=== PATIENT | male | born 1970 | race Caucasian/White ===

== ENCOUNTER 2021-10-01 09:15 | Outpatient (RCR) | payer MEDICAID, SELFPAY ==
[2021-09-24 08:45] VITALS: BP 130/58; PULSE 116; RESP 16; TEMP 35.8; BMI 37.8
--- NOTE | 2021-09-24 10:06 | PCM.WC.HP ---
History of Present Illness Date of Service: 09/24/21 Chief Complaint: Sacral ulcer History of Wound: Is a pleasant 51-year-old female who presents to the wound healing center today (09/24/2021) for an initial consult of his sacral pressure ulcer. He has a past medical history significant for type 2 diabetes mellitus, hypertension, DOMINGO, congestive heart failure, obesity, gout, osteoarthritis, neuropathy, metabolic encephalopathy, former tobacco use, and COVID-19 pneumonia. He has no known allergies. He developed his sacral ulcer while hospitalized at [facility] for COVID-19 pneumonia in June 2021. On 08/24/2021, he underwent excision and surgical debridement of his infected, unstageable sacral ulcer. A wound VAC was initiated at that time. Following his discharge from the hospital, he has been residing at [facility] in [place], [place]. He has continued to receive wound care using a wound VAC at 125 mmHg negative pressure. His wound VAC has been changed 3 times weekly. He has been tolerating this well, and the wound has been responding well to this treatment. He has only been receiving bed baths since his hospital discharge. Nursing has been cleaning his wound with sterile water. He sleeps on a bed with an air mattress for offloading. When seated in a chair, he uses pillows for offloading. He is ambulatory with a walker. He reports that he was on antibiotics at some point for treatment of his wound infection, but does not recall the name of the antibiotics he was taking. He has not had any recent wound cultures. He denies any recent fever chills or poor appetite. He does note that he has had malodorous drainage from his sacral wound recently. [facility] Medical History (Updated 09/24/21 @ 10:26 by Mayda Lemos WIRE BENDER, WIRE BENDER-C) Obesity Stage III pressure ulcer of sacral region Type 2 diabetes mellitus with other skin ulcer Home Medications acetaminophen [Tylenol] 650 mg PO Q8H PRN 09/24/21 [History Last Taken Unknown] allopurinol 100 mg PO DAILY 09/24/21 [History Last Taken Unknown] amlodipine 5 mg PO DAILY 09/24/21 [History Last Taken Unknown] ammonium lactate 1 applic TOPICAL TID 09/24/21 [History Last Taken Unknown] calcium carbonate-vitamin D3 1 cap PO DAILY 09/24/21 [History Last Taken Unknown] carbamazepine [Tegretol XR] 100 mg PO BID 09/24/21 [History Last Taken Unknown] carbamazepine [Tegretol XR] 200 mg PO BID 09/24/21 [History Last Taken Unknown] carvedilol 25 mg PO BID 09/24/21 [History Last Taken Unknown] diphenhydramine HCl [Benadryl Allergy] 25 mg PO TID PRN 09/24/21 [History Last Taken Unknown] docusate sodium 100 mg PO BID 09/24/21 [History Last Taken Unknown] glucagon [Glucagon Emergency Kit] mg 09/24/21 [History Last Taken Unknown] hydralazine 50 mg PO TID 09/24/21 [History Last Taken Unknown] insulin glargine 60 unit SUBCUT QHS 09/24/21 [History Last Taken Unknown] insulin lispro 19 unit SUBCUT TID 09/24/21 [History Last Taken Unknown] insulin lispro [Humalog U-100 Insulin] See Protocol SUBCUT TID 09/24/21 [History Last Taken Unknown] lisinopril 40 mg PO DAILY 09/24/21 [History Last Taken Unknown] lovastatin 40 mg PO QHS 09/24/21 [History Last Taken Unknown] magnesium hydroxide [Milk of Magnesia] 30 ml PO Q4H PRN 09/24/21 [History Last Taken Unknown] melatonin 3 mg PO QHS 09/24/21 [History Last Taken Unknown] metoclopramide HCl [Reglan] 5 mg PO TID 09/24/21 [History Last Taken Unknown] ondansetron HCl [Zofran] 4 mg PO Q6H PRN 09/24/21 [History Last Taken Unknown] oxycodone [OxyContin] 20 mg PO Q12H 09/24/21 [History Last Taken Unknown] oxycodone-acetaminophen 1 tab PO Q8H PRN 09/24/21 [History Last Taken Unknown] pantoprazole [Protonix] 40 mg PO BID 09/24/21 [History Last Taken Unknown] polyethylene glycol 3350 [Miralax] 17 g PO BID PRN 09/24/21 [History Last Taken Unknown] pregabalin 300 mg PO BID 09/24/21 [History Last Taken Unknown] sumatriptan-naproxen [Treximet] 1 tab PO Q24H PRN 09/24/21 [History Last Taken Unknown] tizanidine 2 mg PO Q8H PRN 09/24/21 [History Last Taken Unknown] Allergy/AdvReac Type Severity Reaction Status Date / Time No Known Allergies Allergy Verified 09/24/21 09:26 Social History Smoking Status: Former smoker ROS Constitutional Constitutional: Denies chills, fever(s) or night sweats Eyes Eyes: Denies change in vision or double vision ENT HEENT: Denies lip swelling or tongue swelling Cardiovascular Cardiovascular: Denies chest pain, leg edema or palpitations Respiratory/Chest Respiratory/Chest: Denies cough, shortness of breath at rest, shortness of breath with exertion or wheezing Gastrointestinal Gastrointestinal: Denies diarrhea, nausea or vomiting Genitourinary Genitourinary: Denies dysuria or hematuria Musculoskeletal Musculoskeletal: Reports difficulty walking Integumentary Integumentary: Reports skin pain and wounds; Denies rash Neurologic Neurologic: Reports abnormal gait and abnormal speech Endocrine Endocrinology: Denies cold intolerance, heat intolerance, polydipsia or polyuria Hematologic/Lymphatic Hematologic/Lymphatic: Denies easy bleeding or easy bruising Vital Signs Vital Signs Vital Signs: 09/24/21 08:45 Temperature 96.4 F L Temperature Source Temporal Pulse Rate 116 H Respiratory Rate 16 Blood Pressure 130/58 H Blood Pressure Mean 82 Blood Pressure Source Monitor Blood Pressure Position Sitting Blood Pressure Location Right Arm Oxygen Delivery Method Room Air Weight Weight: 295 lb Body Mass Index (BMI) 37.8 Physical Exam Const alert, no apparent distress and healthy appearing General Appearance: cooperative, comfortable and well kempt Orientation / Consciousness: awake Nutritional Appearance: obese HEENT Head and Scalp: normocephalic and atraumatic Neck supple and no JVD Resp normal respiratory effort, normal air movement and no use of accessory muscles Auscultation: clear to auscultation bilaterally; Negative for crackles, rales, rhonchi or wheezes Cardio regular rate and regular rhythm GI normal to inspection, nondistended, normoactive bowel sounds, soft to palpation and non-tender Extremity normal capillary refill, no joint enlargement, no clubbing, cyanosis or edema, no calf tenderness and no pedal edema Skin Wounds: wounds noted Wound Narrative: Stage 3 sacral ulcer with subcutaneous tissue and muscle exposed. No tunneling, undermining, or probing to bone noted. Small amount of slough and devitalized tissue present. No periulcer warmth, erythema, or edema. No purulent/malodorous drainage. Psych mental status grossly normal, cooperative and affect normal Debridement Note Debridement Note Wound debrided: Stage III sacral ulcer Laterality: Not Applicable Type of Debridement: Excisional debridement Anesthesia Used: 4% Lidocaine Solution Depth: Down to and including healthy tissue, in the subcutaneous layer and to muscle Percentage of wound debrided: 100 Instrument Used: 7mm curette Tissue Removed: Slough and devitalized tissue Severity: Fat Layer Exposed Amount of bleeding with debridement: Mild Bleeding Controlled with: Pressure Patient tolerated procedure: Patient tolerated procedure well Post-Debridement Measurements and Additional Note: Post-Debridement Measurements/Treatment - Nurse 1 - General Ulcer Assessment Start: 09/24/21 08:35 Freq: Status: Active Protocol: CHRISSY Activity Type Activity Date Activity User E-Sign Co-Sign Detail Recorded Client Recorded Date Recorded By Document 09/24/21 08:45 [facility] [id number] 09/24/21 08:51 [facility] 09/24/21 08:45 - Today's Visit Information Type of service Initial Visit Arrival Mode Wheelchair Transfer Assistance Other Transfer Assist (Other) stand by Accompanied by auto design detailer from [facility] Patient Identification Verified (Name & Yes ) Patient Requires Transmission-Based No Precautions Finger Stick Blood Sugar(mg/dl) (if 139 indicated): Blood Sugar Stated by Patient Height and Weight Height 6 ft 2 in Weight 295 lb Weight in Pounds 295.0 lbs Weight Measurement Method Stated by Patient Body Mass Index (BMI) 37.8 BMI Classification Obese BSA - Martinez 2.56 Vital Signs Temperature (97.8 F-99.1 F) 96.4 F L Temperature Source Temporal Pulse Rate (60-100) 116 H Pulse Location Monitor Respiratory Rate (12-18) 16 Respiratory rate source Observation Oxygen Delivery Method Room Air Blood Pressure (90/60-120/80) 130/58 H Blood Pressure Mean 82 Source Monitor Position Sitting Blood Pressure Location Right Arm History Since Last Visit- (Skip if this is Patient's initial visit) Left Footwear Regular Shoe Right Footwear Regular Shoe Pain Scale: 0-10 Numeric Is Patient Pain Free? Yes Communication Assessment Preferred language Stateless Medical Typist Required No Able to Read Yes Able to Write Yes Communication Tools None Right Hearing Abillity Normal Left Hearing Abillity Normal Visual Assistive Devices Glasses Teaching Assessment Preferences Verbal,Written, Audio/Visual, Demonstration Barriers to Learning None Readiness To Learn Excellent Willingness to Engage in Self Management High Activies Readiness to Engage in Self Management High Activities Anxiety Level Calm Cooperation Cooperative Perception Coherent Interest in Health Problem Asks Questions Education Importance Acknowledges Need Does Patient Smoke tobacco or other No substances Smoking Status Former smoker Is Patient Diabetic Yes Functional Assessment Recent Decline in Ability to Perform Ambulation, Lower Body Dressing, Transferring Culture/Synagogue/Lead Advisor Cultural/Synagogue Needs that may affect No Treatment Plan Teaching: Wound Center *Welcome to the Wound Center -Person Taught Patient -Teaching Method Discussion -Response to teaching Verbalize understanding Welcome to the Wound Care Center Stateless LILLIAN - Nurse 1 - General Ulcer Measurement Start: 09/24/21 08:35 Freq: Status: Active Protocol: Activity Type Activity Date Activity User E-Sign Co-Sign Detail Recorded Client Recorded Date Recorded By Document 09/24/21 08:45 [facility] [id number] 09/24/21 08:51 [facility] 09/24/21 08:45 Wound Center Nurse 1 #1- SACRAL -Combined with other wound No -Current Size (cm) - Length 7 -Current Size (cm) - Width 5 -Current Size (cm) - Depth 3.5 -Total Square Cm 35 -Date of Last Picture (Recall this 09/24/21 field) -Photo Taken Yes -Epithelialization None Present -Tunneling No -Undermining/Tunneling No -Circular Undermining No -Exudate Amt Large -Exudate Type Serosanguineous -Wound Margin Distinct, Outline Attached -Granulation Amt Medium (34-66%) -Granulation Quality Red -Slough/Fibrin Yes -Necrosis Amt Medium (34-66%) -Necrotic Tissue Type Adherent Slough -Texture (Pao-wound Skin Appearance) Assessed, Scarring -Moisture (Pao-wound Skin Appearance) Assessed -Color (Pao-wound Skin Appearance) Assessed, Erythema -Temperature (Pao-wound Skin No Abnormality Appearance) (Pt Warm) -Tenderness on Palpation (Pao-wound Yes Skin Appearance) -Ulcer Cleansing Soap and Water -Foul Odor after Cleansing No -Anesthetic Used 4% Lidocaine Solution LILLIAN - Nurse 3 - General Ulcer D/C NN Start: 09/24/21 08:35 Freq: Status: Active Protocol: Activity Type Activity Date Activity User E-Sign Co-Sign Detail Recorded Client Recorded Date Recorded By Document 09/24/21 09:56 [facility] [id number] 09/24/21 09:57 A[facility] 09/24/21 09:56 Wound Care Nurse 3 -Ulcer Cleansing Rinsed/ Irrigated with Saline -Foul Odor after Cleansing No -Negative Pressure Wound Therapy N/A -Other Dressing wet to dry -Primary Dressing Covered/Secured with Dry Gauze, Secured with Tape WC - Visit Discharge Discharge Condition Stable Ambulatory Status Wheelchair Transportation transport Medication Reconcilliation completed & No provided to patient/care provider Clinical Summary of Care Provided Yes Charges/Coding Visit Charges Office Visits / Consults: 75232 OV L4 New Procedures Integumentary [id number]: [id number] Evangelina musc/fascia 20 sq cm/< Add On Codes: [id number] Evangelina musc/fascia add-on (x2) Assessment/Plan Assessment/Plan (1) Stage III pressure ulcer of sacral region: CODE(S): L89.153 - Pressure ulcer of sacral region, stage 3 (2) Type 2 diabetes mellitus with other skin ulcer: CODE(S): E11.622 - Type 2 diabetes mellitus with other skin ulcer; L98.499 - Non-pressure chronic ulcer of skin of other sites with unspecified severity QUALIFIERS: Diabetes mellitus assisted insulin use: unspecified assisted insulin use status Qualified Code(s): E11.622 - Type 2 diabetes mellitus with other skin ulcer; L98.499 - Non-pressure chronic ulcer of skin of other sites with unspecified severity (3) Obesity: CODE(S): E66.9 - Obesity, unspecified QUALIFIERS: Obesity type: unspecified obesity type Obesity classification: unspecified obesity classification Serious obesity comorbidity presence: with serious comorbidity Qualified Code(s): E66.9 - Obesity, unspecified PLAN: Debridement performed today in clinic as annotated above. Wet-to-dry gauze dressing applied. At home wound-care instructions: We will continue wound VAC at 125 mmHg negative pressure, to be changed 3 times per week. Prior to each VAC reapplication, the patient may shower using antibacterial soap and water to cleanse the sacral area thoroughly. Off-loading: The patient was instructed to avoid pressure and friction on the affected areas. Use pillows to offload the sacrum when seated. He has an air mattress for offloading on his bed. Reposition every 2 hours at minimum. Frequent ambulation is encouraged. Diet: Patient encouraged to increase protein intake while taking caution to avoid high carbohydrate and/or sugar intake. Labs/cultures/imaging: Cultures ordered and collected today. Routine baseline lab work ordered. Per patient, x-rays were completed at ; these records will be requested. Follow-up: Return to clinic in 1 week for re-evaluation. Return sooner or report to the emergency room should symptoms worsen, or new symptoms arise. Note: [employer] speech recognition plastics heat welder software was used to create portions of this document. Sound-alike and misspelled words, as well as other plastics heat welder errors may be contained in the documentation.
--- NOTE | 2021-10-01 07:53 | PN.PCM_ITS ---
History of Present Illness Date of Service: 10/01/21 Chief Complaint: Sacral ulcer History of Wound: Is a pleasant 51-year-old female who presents to the wound healing center today (09/24/2021) for an initial consult of his sacral pressure ulcer. He has a past medical history significant for type 2 diabetes mellitus, hypertension, DOMINGO, congestive heart failure, obesity, gout, osteoarthritis, neuropathy, metabolic encephalopathy, former tobacco use, and COVID-19 pneumonia. He has no known allergies. He developed his sacral ulcer while hospitalized at [facility] for COVID-19 pneumonia in June 2021. On 08/24/2021, he underwent excision and surgical debridement of his infected, unstageable sacral ulcer. A wound VAC was initiated at that time. Following his discharge from the hospital, he has been residing at [facility] in [place], [place]. He has continued to receive wound care using a wound VAC at 125 mmHg negative pressure. His wound VAC has been changed 3 times weekly. He has been tolerating this well, and the wound has been responding well to this treatment. He has only been receiving bed baths since his hospital discharge. Nursing has been cleaning his wound with sterile water. He sleeps on a bed with an air mattress for offloading. When seated in a chair, he uses pillows for offloading. He is ambulatory with a walker. He reports that he was on antibiotics at some point for treatment of his wound infection, but does not recall the name of the antibiotics he was taking. He has not had any recent wound cultures. He denies any recent fever chills or poor appetite. He does note that he has had malodorous drainage from his sacral wound recently. Progress of Wound: The patient is tolerating his wound VAC well. His ulcer length and width have improved, though his depth has increased from last week (some of this may be due to positioning). Wound culture from 09/24/2021 was positive for rare Proteus mirabilis, and positive for anaerobic cocci. The patient was started on cefdinir 300 mg every 12 hours x10 days. Labs (09/27/2021) were reviewed, and were significant for the following: CMP: Glucose 319 (H), BUN 60 (H), creatinine 2.3 (H), estimated GFR 30 (L), albumin 2.7 (L) CBCD: RBC 3.40 (L), hemoglobin 9.6 (L), hematocrit 30.2 (L), platelets 118 (L) Hemoglobin A1c: 6.7% CRP: 281.7 (H) Prealbumin: 11 (L) ESR: 77 (H) The patient denies fever, chills, general malaise, or poor appetite. The patient has not had increased redness, swelling, or purulent/malodorous drainage from affected area. Objective Data Objective Data Vital Signs: Vital Signs Temp Pulse Resp BP 96.4 F L 116 H 16 130/58 H 09/24/21 08:45 09/24/21 08:45 09/24/21 08:45 09/24/21 08:45 Oxygen Delivery Method Room Air Weight: 295 lb Body Mass Index (BMI) 37.8 Lab / Micro Data Micro: Microbiology 09/24/21 09:45 Wound Abcess - Buttock Gram Stain - Final 09/24/21 09:45 Wound Abcess - Buttock Wound Culture - Final Proteus mirabilis 09/24/21 09:45 Wound Abcess - Buttock Anaerobic Culture - Final Anaerobic cocci Charges/Coding Procedures Integumentary 111xxx-113xx: 29523 Evangelina musc/fascia 20 sq cm/< Add On Codes: 84230 Evangelina subq tissue add-on (x2) Physical Exam Const alert, no apparent distress and healthy appearing General Appearance: cooperative, comfortable and well kempt Orientation / Consciousness: awake Nutritional Appearance: obese HEENT Head and Scalp: normocephalic and atraumatic Neck supple and no JVD Resp normal respiratory effort, normal air movement and no use of accessory muscles Extremity normal capillary refill, no joint enlargement and no clubbing, cyanosis or edema Skin Wounds: wounds noted Wound Narrative: Stage 3 sacral ulcer with subcutaneous tissue and muscle exposed. No tunneling, undermining, or probing to bone noted. Small to moderate amount of slough and devitalized tissue present. No periulcer warmth, erythema, or edema. No purulent/malodorous drainage. Psych mental status grossly normal, cooperative and affect normal Debridement Note Debridement Note Wound debrided: sacral ulcer Laterality: Not Applicable Wound Grade/Stage: Stage III Type of Debridement: Excisional debridement Anesthesia Used: 4% Lidocaine Solution Depth: Down to and including healthy tissue, in the subcutaneous layer and to muscle Percentage of wound debrided: 100 Instrument Used: 7mm curette Tissue Removed: Slough and devitalized tissue Severity: Necrosis of Muscle Amount of bleeding with debridement: Mild Bleeding Controlled with: Pressure Patient tolerated procedure: Patient tolerated procedure well Post-Debridement Measurements and Additional Note: Post-Debridement Measurements/Treatment WC - Nurse 1 - General Ulcer Assessment Start: 09/24/21 08:35 Freq: Status: Active Protocol: [email or web address] Activity Type Activity Date Activity User E-Sign Co-Sign Detail Recorded Client Recorded Date Recorded By Document 09/24/21 08:45 [facility] [id number] 09/24/21 08:51 [facility] 09/24/21 08:45 WC - Today's Visit Information Type of service Initial Visit Arrival Mode Wheelchair Transfer Assistance Other Transfer Assist (Other) stand by Accompanied by physiotherapy aide from [facility] Patient Identification Verified (Name & Yes ) Patient Requires Transmission-Based No Precautions Finger Stick Blood Sugar(mg/dl) (if 139 indicated): Blood Sugar Stated by Patient Height and Weight Height 6 ft 2 in Weight 295 lb Weight in Pounds 295.0 lbs Weight Measurement Method Stated by Patient Body Mass Index (BMI) 37.8 BMI Classification Obese BSA - Martinez 2.56 Vital Signs Temperature (97.8 F-99.1 F) 96.4 F L Temperature Source Temporal Pulse Rate (60-100) 116 H Pulse Location Monitor Respiratory Rate (12-18) 16 Respiratory rate source Observation Oxygen Delivery Method Room Air Blood Pressure (90/60-120/80) 130/58 H Blood Pressure Mean (mm Hg) 82 Source Monitor Position Sitting Blood Pressure Location Right Arm History Since Last Visit- (Skip if this is Patient's initial visit) Left Footwear Regular Shoe Right Footwear Regular Shoe Pain Scale: 0-10 Numeric Is Patient Pain Free? Yes Communication Assessment Preferred language [place] Tractor Driver Required No Able to Read Yes Able to Write Yes Communication Tools None Right Hearing Abillity Normal Left Hearing Abillity Normal Visual Assistive Devices Glasses Teaching Assessment Preferences Verbal,Written, Audio/Visual, Demonstration Barriers to Learning None Readiness To Learn Excellent Willingness to Engage in Self Management High Activies Readiness to Engage in Self Management High Activities Anxiety Level Calm Cooperation Cooperative Perception Coherent Interest in Health Problem Asks Questions Education Importance Acknowledges Need Does Patient Smoke tobacco or other No substances Smoking Status Former smoker Is Patient Diabetic Yes Functional Assessment Recent Decline in Ability to Perform Ambulation, Lower Body Dressing, Transferring Culture/Restorationist/Drawing Kiln Operator Cultural/Restorationist Needs that may affect No Treatment Plan Teaching: Wound Center *Welcome to the Wound Center -Person Taught Patient -Teaching Method Discussion -Response to teaching Verbalize understanding Welcome to the Wound Care Center [place] WC - Nurse 1 - General Ulcer Measurement Start: 09/24/21 08:35 Freq: Status: Active Protocol: Activity Type Activity Date Activity User E-Sign Co-Sign Detail Recorded Client Recorded Date Recorded By Document 09/24/21 08:45 [facility] [id number] 09/24/21 08:51 [facility] 09/24/21 08:45 Wound Center Nurse 1 #1- SACRAL -Combined with other wound No -Current Size (cm) - Length 7 -Current Size (cm) - Width 5 -Current Size (cm) - Depth 3.5 -Total Square Cm 35 -Date of Last Picture (Recall this 09/24/21 field) -Photo Taken Yes -Epithelialization None Present -Tunneling No -Undermining/Tunneling No -Circular Undermining No -Exudate Amt Large -Exudate Type Serosanguineous -Wound Margin Distinct, Outline Attached -Granulation Amt Medium (34-66%) -Granulation Quality Red -Slough/Fibrin Yes -Necrosis Amt Medium (34-66%) -Necrotic Tissue Type Adherent Slough -Texture (Pao-wound Skin Appearance) Assessed, Scarring -Moisture (Pao-wound Skin Appearance) Assessed -Color (Pao-wound Skin Appearance) Assessed, Erythema -Temperature (Pao-wound Skin No Abnormality Appearance) (Pt Warm) -Tenderness on Palpation (Pao-wound Yes Skin Appearance) -Ulcer Cleansing Soap and Water -Foul Odor after Cleansing No -Anesthetic Used 4% Lidocaine Solution WC - Nurse 2 - General Ulcer CM Notes Start: 09/24/21 08:35 Freq: Status: Active Protocol: Activity Type Activity Date Activity User E-Sign Co-Sign Detail Recorded Client Recorded Date Recorded By Document 09/24/21 12:08 PL [id number] 09/24/21 12:40 PL 09/24/21 12:08 Wound Center Nurse 2 -Time 09:40 -Correct Patient Yes -Correct Side, Site, Position Yes -Correct Procedure Yes -Procedure Performed Yes -Type of Procedure Debridement -Clinical Debridement Muscle / Fascia -Tissue Removed Subcutaneous, Muscle -Post Debridement (cm) - Length 7.0 -Post Debridement (cm) - Width 6.2 -Post Debridement (cm) - Depth 3.5 -Total Square (Post) (cm) 43.40 -Area of Debridement (cm) - Length 7.0 -Area of Debridement (cm) - Width 6.2 -Total Square (Area) (cm) 43.40 -Tunneling No -Undermining/Tunneling No -Circular Undermining No -Ulcer Cleansing Rinsed/ Irrigated with Saline -Foul Odor after Cleansing No -Bioengineered Tissue No -Bleeding Controlled with Pressure -Treatment Response Procedure Tolerated Well -Debridement - Muscle / Fascia, 1st Yes 20sq cm -Debridement, Muscle/Fascia, ea addt'l 2 20sq cm or part thereof WC - Nurse 3 - General Ulcer D/C NN Start: 09/24/21 08:35 Freq: Status: Active Protocol: Activity Type Activity Date Activity User E-Sign Co-Sign Detail Recorded Client Recorded Date Recorded By Document 09/24/21 09:56 SC [id number] 09/24/21 09:57 ASHLEIGH 09/24/21 09:56 Wound Care Nurse 3 -Ulcer Cleansing Rinsed/ Irrigated with Saline -Foul Odor after Cleansing No -Negative Pressure Wound Therapy N/A -Other Dressing wet to dry -Primary Dressing Covered/Secured with Dry Gauze, Secured with Tape WC - Visit Discharge Discharge Condition Stable Ambulatory Status Wheelchair Transportation transport Medication Reconcilliation completed & No provided to patient/care provider Clinical Summary of Care Provided Yes Assessment/Plan Assessment/Plan (1) Stage III pressure ulcer of sacral region: CODE(S): L89.153 - Pressure ulcer of sacral region, stage 3 (2) Type 2 diabetes mellitus with other skin ulcer: CODE(S): E11.622 - Type 2 diabetes mellitus with other skin ulcer; L98.499 - Non-pressure chronic ulcer of skin of other sites with unspecified severity QUALIFIERS: Diabetes mellitus termite control representative insulin use: unspecified termite control representative insulin use status Qualified Code(s): E11.622 - Type 2 diabetes mellitus with other skin ulcer; L98.499 - Non-pressure chronic ulcer of skin of other sites with unspecified severity (3) Obesity: CODE(S): E66.9 - Obesity, unspecified QUALIFIERS: Obesity classification: unspecified obesity classification Obesity type: unspecified obesity type Serious obesity co morbidity presence: with serious comorbidity Qualified Code(s): E66.9 - Obesity, unspecified PLAN: Debridement performed today in clinic as annotated above. At home wound-care instructions: We will continue wound VAC, but will increase to 150 mmHg negative pressure, to be changed 3 times per week. Prior to each VAC reapplication, the patient may shower using antibacterial soap and water to cleanse the sacral area thoroughly. Off-loading: The patient was instructed to avoid pressure and friction on the affected areas. Use pillows to offload the sacrum when seated. He has an air mattress for offloading on his bed. Reposition every 2 hours at minimum. Frequent ambulation is encouraged. Diet: Patient encouraged to increase protein intake while taking caution to avoid high carbohydrate and/or sugar intake. Labs/cultures/imaging: -Wound culture from 09/24/2021 was positive for rare Proteus mirabilis, and positive for anaerobic cocci. The patient was started on cefdinir 300 mg every 12 hours x10 days. -Labs (09/27/2021): CMP: Glucose 319 (H), BUN 60 (H), creatinine 2.3 (H), estimated GFR 30 (L), albumin 2.7 (L) CBCD: RBC 3.40 (L), hemoglobin 9.6 (L), hematocrit 30.2 (L), platelets 118 (L) Hemoglobin A1c: 6.7% CRP: 281.7 (H) Prealbumin: 11 (L) ESR: 77 (H) -Per patient, x-rays and MRI were completed at [facility]; these records will be requested. If a recent MRI is not available, we will consider ordering sacral imaging at his follow-up appointment. Follow-up: Return to clinic in 3 weeks for re-evaluation. Return sooner or report to the emergency room should symptoms worsen, or new symptoms arise. Note: Brammo speech recognition maker up folding software was used to create portions of this document. Sound-alike and misspelled words, as well as other maker up folding errors may be contained in the documentation.
[2021-10-01 09:57] VITALS: BP 137/89; PULSE 84; TEMP 36.8; BMI 37.8
== END 2021-10-15 23:59 ==
LOC: WC 09:15
PROVIDERS: Visit Provider Nurse Practitioner Family
DX: L89.153 Pressure ulcer of sacral region, stage 3 (principal); E11.622 Type 2 diabetes mellitus with other skin ulcer; E66.9 Obesity, unspecified; G47.33 Obstructive sleep apnea (adult) (pediatric); I11.0 Hypertensive heart disease with heart failure; I50.9 Heart failure, unspecified; M10.9 Gout, unspecified; M19.90 Unspecified osteoarthritis, unspecified site; Z79.1 Long term (current) use of non-steroidal anti-inflammatories (NSAID); Z79.4 Long term (current) use of insulin; Z79.891 Long term (current) use of opiate analgesic; Z86.16 Personal history of COVID-19; Z87.891 Personal history of nicotine dependence; Z68.37 Body mass index [BMI] 37.0-37.9, adult
CPT/HCPCS: 11043; 11046; 87070; 87075; 87077; 87186; 87205; 99213; G0463

== ENCOUNTER 2021-11-05 09:15 | Outpatient (RCR) | payer MEDICAID, SELFPAY ==
[2021-10-16 00:07] VITALS: BP 137/89; PULSE 84; RESP 16; TEMP 36.8; BMI 37.8
[2021-10-21 09:58] VITALS: BP 181/75; PULSE 69; RESP 20; TEMP 36; BMI 37.8
--- NOTE | 2021-10-21 12:12 | PCM.WC.PN ---
History of Present Illness Date of Service: 10/21/21 Chief Complaint: Sacral ulcer History of Wound: Is a pleasant 51-year-old female who presents to the wound healing center today (09/24/2021) for an initial consult of his sacral pressure ulcer. He has a past medical history significant for type 2 diabetes mellitus, hypertension, DOMINGO, congestive heart failure, obesity, gout, osteoarthritis, neuropathy, metabolic encephalopathy, former tobacco use, and COVID-19 pneumonia. He has no known allergies. He developed his sacral ulcer while hospitalized at [facility] for COVID-19 pneumonia in June 2021. On 08/24/2021, he underwent excision and surgical debridement of his infected, unstageable sacral ulcer. A wound VAC was initiated at that time. Following his discharge from the hospital, he has been residing at [facility] in [place], [place]. He has continued to receive wound care using a wound VAC at 125 mmHg negative pressure. His wound VAC has been changed 3 times weekly. He has been tolerating this well, and the wound has been responding well to this treatment. He has only been receiving bed baths since his hospital discharge. Nursing has been cleaning his wound with sterile water. He sleeps on a bed with an air mattress for offloading. When seated in a chair, he uses pillows for offloading. He is ambulatory with a walker. He reports that he was on antibiotics at some point for treatment of his wound infection, but does not recall the name of the antibiotics he was taking. He has not had any recent wound cultures. He denies any recent fever chills or poor appetite. He does note that he has had malodorous drainage from his sacral wound recently. Progress of Wound: Courtesy visit . Sacral Ulcer is improving. Wound Vac being applied by his nursing facility Subjective Subjective No new concerns at this time. Objective Data Objective Data Vital Signs: Vital Signs Temp Pulse Resp BP 96.8 F L 69 20 H 181/75 H 10/21/21 09:58 10/21/21 09:58 10/21/21 09:58 10/21/21 09:58 Weight: 295 lb Body Mass Index (BMI) 37.8 Charges/Coding Procedures Integumentary 111xxx-113xx: 43874 Evangelina subq tissue 20 sq cm/< Physical Exam Const alert, no apparent distress and healthy appearing General Appearance: cooperative, comfortable and well kempt Orientation / Consciousness: awake Nutritional Appearance: obese HEENT Head and Scalp: normocephalic and atraumatic Neck supple and no JVD Resp normal respiratory effort, normal air movement and no use of accessory muscles Extremity normal capillary refill, no joint enlargement and no clubbing, cyanosis or edema Skin Wounds: wounds noted Psych mental status grossly normal, cooperative and affect normal Debridement Note Debridement Note Wound debrided: Sacral Wound Grade/Stage: Stage III Type of Debridement: Excisional debridement Anesthesia Used: 4% Lidocaine Solution Depth: Down to and including healthy tissue and in the subcutaneous layer Percentage of wound debrided: 100 Instrument Used: 5mm curette Tissue Removed: Slough and devitalized tissue Severity: Fat Layer Exposed Amount of bleeding with debridement: Mild Bleeding Controlled with: Pressure Patient tolerated procedure: Patient tolerated procedure well Post-Debridement Measurements and Additional Note: Post-Debridement Measurements/Treatment - Nurse 1 - General Ulcer Assessment Start: 10/21/21 09:58 Freq: Status: Active Protocol: CHRISSY Activity Type Activity Date Activity User E-Sign Co-Sign Detail Recorded Client Recorded Date Recorded By Document 10/21/21 09:58 DL [id number] 10/21/21 10:06 DL 10/21/21 09:58 WC - Today's Visit Information Type of service Follow-up Visit (Physician/COMMERCIAL LINES ACCOUNT MANAGER ) Arrival Mode Wheelchair Transfer Assistance Manual Transfer Assist (Other) x1 Patient Identification Verified (Name & Yes ) Patient Requires Transmission-Based No Precautions Height and Weight Body Mass Index (BMI) 37.8 BMI Classification Obese Vital Signs Temperature (97.8 F-99.1 F) 96.8 F L Temperature Source Oral Pulse Rate (60-100) 69 Pulse Location Monitor Respiratory Rate (12-18) 20 H Respiratory rate source Observation Blood Pressure (90/60-120/80) 181/75 H Blood Pressure Mean (mm Hg) 110 Source Monitor History Since Last Visit- (Skip if this is Patient's initial visit) Have you changed medications since your No last visit? Any new allergies or adverse reactions No Had a fall/change in ADL's that may No increase risk of falls Signs or symptoms of abuse and/or No neglect since last visit Have you been in the hospital since your No last visit? Has dressing in place as prescribed Yes Has compression in place as prescribed N/A Has offloadiing in place as prescribed Yes Experienced any changes in pain level or No management Pain Scale: 0-10 Numeric Is Patient Pain Free? Yes WC - Nurse 1 - General Ulcer Measurement Start: 10/21/21 09:58 Freq: Status: Active Protocol: Activity Type Activity Date Activity User E-Sign Co-Sign Detail Recorded Client Recorded Date Recorded By Document 10/21/21 09:58 DL [id number] 10/21/21 10:06 DL 10/21/21 09:58 Wound Center Nurse 1 #1- SACRAL -Current Size (cm) - Length 4.1 -Current Size (cm) - Width 4 -Current Size (cm) - Depth 2.8 -Total Square Cm 16.4 -Photo Taken No -Exudate Amt Medium -Exudate Type Serosanguineous -Wound Margin Distinct, Outline Attached -Granulation Amt Large (67-100%) -Granulation Quality Red -Necrosis Amt Small (1-33%) -Structure Exposed Bone,N/A -Texture (Pao-wound Skin Appearance) Scarring -Moisture (Pao-wound Skin Appearance) No Abnormality -Color (Pao-wound Skin Appearance) No Abnormality -Temperature (Pao-wound Skin No Abnormality Appearance) (Pt Warm) -Tenderness on Palpation (Pao-wound No Skin Appearance) -Ulcer Cleansing Soap and Water -Foul Odor after Cleansing No -Anesthetic Used 4% Lidocaine Solution LILLIAN - Nurse 2 - General Ulcer CM Notes Start: 10/21/21 09:58 Freq: Status: Active Protocol: Activity Type Activity Date Activity User E-Sign Co-Sign Detail Recorded Client Recorded Date Recorded By Document 10/21/21 10:17 MW [id number] 10/21/21 10:21 MW 10/21/21 10:17 Wound Center Nurse 2 -Time 10:18 -Correct Patient Yes -Correct Side, Site, Position Yes -Correct Procedure Yes -Procedure Performed Yes -Type of Procedure Debridement -Clinical Debridement Subcutaneous -Tissue Removed Subcutaneous -Post Debridement (cm) - Length 4.5 -Post Debridement (cm) - Width 3.5 -Post Debridement (cm) - Depth 3.8 -Total Square (Post) (cm) 15.75 -Area of Debridement (cm) - Length 4.5 -Area of Debridement (cm) - Width 3.5 -Total Square (Area) (cm) 15.75 -Tunneling No -Undermining/Tunneling No -Circular Undermining No -Wound/Ulcer Outcome Not Healed -Ulcer Cleansing Rinsed/ Irrigated with Saline -Foul Odor after Cleansing No -Bioengineered Tissue No -Bleeding Controlled with Pressure -Offloading No -Treatment Response Procedure Tolerated Well -Debridement - Subq, 1st 20sq cm Yes Pain Scale: 0-10 Numeric Is Patient Pain Free? Yes WC - Nurse 3 - General Ulcer D/C NN Start: 10/21/21 09:58 Freq: Status: Active Protocol: Activity Type Activity Date Activity User E-Sign Co-Sign Detail Recorded Client Recorded Date Recorded By Document 10/21/21 10:34 DL [id number] 10/21/21 10:35 DL 10/21/21 10:34 Wound Care Nurse 3 #1- SACRAL -Ulcer Cleansing Rinsed/ Irrigated with Saline -Foul Odor after Cleansing No -Other Dressing wet to dry today -Primary Dressing Covered/Secured with Dry Gauze, Secured with Tape Treatment Response Procedure Tolerated Well Pain Scale: 0-10 Numeric Is Patient Pain Free? Yes WC - Visit Discharge Discharge Condition Stable Ambulatory Status Wheelchair Facility Type [facility] Orders Sent Yes Assessment/Plan Assessment/Plan (1) Stage III pressure ulcer of sacral region: CODE(S): L89.153 - Pressure ulcer of sacral region, stage 3 (2) Type 2 diabetes mellitus with other skin ulcer: CODE(S): E11.622 - Type 2 diabetes mellitus with other skin ulcer; L98.499 - Non-pressure chronic ulcer of skin of other sites with unspecified severity QUALIFIERS: Diabetes mellitus exterminator insulin use: unspecified prison insulin use status Qualified Code(s): E11.622 - Type 2 diabetes mellitus with other skin ulcer; L98.499 - Non-pressure chronic ulcer of skin of other sites with unspecified severity (3) Obesity: CODE(S): E66.9 - Obesity, unspecified QUALIFIERS: Obesity type: unspecified obesity type Obesity classification: unspecified obesity classification Serious obesity comorbidity presence: with serious comorbidity Qualified Code(s): E66.9 - Obesity, unspecified PLAN: Debridement done as documented above, procedure was well-tolerated. Per measurements, Ulcer has improved in size. Continue wound VAC and change per nursing facility. Recommend offloading, increase protein intake and optimal diabetes control. His questions were answered and he was advised to call with any further questions or concerns. Follow-up in a week with Mayda Lemos NP. This note was generated with Commun[employer] dictation software. It may contain incorrect words, spelling, and punctuation that were not noted in checking the note before signing.
[2021-11-05 09:31] VITALS: BP 124/64; PULSE 78; RESP 16; TEMP 36.1; BMI 37.8
--- NOTE | 2021-11-05 10:28 | PCM.WC.HP ---
History of Present Illness Date of Service: 11/05/21 Chief Complaint: Sacral ulcer History of Wound: Ovidio is a pleasant 51-year-old male who presented to the wound healing center on 09/24/2021 for an initial consult of his sacral pressure ulcer. He has a past medical history significant for type 2 diabetes mellitus, hypertension, DOMINGO, congestive heart failure, obesity, gout, osteoarthritis, neuropathy, metabolic encephalopathy, former tobacco use, and COVID-19 pneumonia. He has no known allergies. He developed his sacral ulcer while hospitalized at [facility] for COVID-19 pneumonia in June 2021. On 08/24/2021, he underwent excision and surgical debridement of his infected, unstageable sacral ulcer. A wound VAC was initiated at that time. Following his discharge from the hospital, he has been residing at [facility] in [place], [place]. He has continued to receive wound care using a wound VAC, which was increased to a 150 mmHg negative pressure. His wound VAC has been changed 3 times weekly. He has been tolerating this well, and the wound has been responding well to this treatment. He has been permitted to shower and instructed to cleanse wound with antibacterial soap and water between dressing changes. He sleeps on a bed with an air mattress for offloading. When seated in a chair, he uses pillows for offloading. He is ambulatory with a walker. A wound culture from 09/24/2021 revealed rare Proteus mirabilis and positive anaerobic cocci. Patient completed a course of cefdinir 300 mg every 12 hours x10 days. He denies any recent fever chills or poor appetite. He does note that he has had malodorous drainage from his sacral wound recently. Per nursing staff, he has had improvement of his sacral ulcer in recent weeks. [facility] Medical History (Updated 09/24/21 @ 10:26 by Mayda Lemos NP, SPECIAL DELIVERY CARRIER-C) Obesity Stage III pressure ulcer of sacral region Type 2 diabetes mellitus with other skin ulcer Home Medications acetaminophen [Tylenol] 650 mg PO Q8H PRN 09/24/21 [History Last Taken Unknown] allopurinol 100 mg PO DAILY 09/24/21 [History Last Taken Unknown] amlodipine 5 mg PO DAILY 09/24/21 [History Last Taken Unknown] ammonium lactate 1 applic TOPICAL TID 09/24/21 [History Last Taken Unknown] calcium carbonate-vitamin D3 1 cap PO DAILY 09/24/21 [History Last Taken Unknown] carbamazepine [Tegretol XR] 100 mg PO BID 09/24/21 [History Last Taken Unknown] carbamazepine [Tegretol XR] 200 mg PO BID 09/24/21 [History Last Taken Unknown] carvedilol 25 mg PO BID 09/24/21 [History Last Taken Unknown] diphenhydramine HCl [Benadryl Allergy] 25 mg PO TID PRN 09/24/21 [History Last Taken Unknown] docusate sodium 100 mg PO BID 09/24/21 [History Last Taken Unknown] glucagon [Glucagon Emergency Kit] mg 09/24/21 [History Last Taken Unknown] hydralazine 50 mg PO TID 09/24/21 [History Last Taken Unknown] insulin glargine 60 unit SUBCUT QHS 09/24/21 [History Last Taken Unknown] insulin lispro 19 unit SUBCUT TID 09/24/21 [History Last Taken Unknown] insulin lispro [Humalog U-100 Insulin] See Protocol SUBCUT TID 09/24/21 [History Last Taken Unknown] lisinopril 40 mg PO DAILY 09/24/21 [History Last Taken Unknown] lovastatin 40 mg PO QHS 09/24/21 [History Last Taken Unknown] magnesium hydroxide [Milk of Magnesia] 30 ml PO Q4H PRN 09/24/21 [History Last Taken Unknown] melatonin 3 mg PO QHS 09/24/21 [History Last Taken Unknown] metoclopramide HCl [Reglan] 5 mg PO TID 09/24/21 [History Last Taken Unknown] ondansetron HCl [Zofran] 4 mg PO Q6H PRN 09/24/21 [History Last Taken Unknown] oxycodone [OxyContin] 20 mg PO Q12H 09/24/21 [History Last Taken Unknown] oxycodone-acetaminophen 1 tab PO Q8H PRN 09/24/21 [History Last Taken Unknown] pantoprazole [Protonix] 40 mg PO BID 09/24/21 [History Last Taken Unknown] polyethylene glycol 3350 [Miralax] 17 g PO BID PRN 09/24/21 [History Last Taken Unknown] pregabalin 300 mg PO BID 09/24/21 [History Last Taken Unknown] sumatriptan-naproxen [Treximet] 1 tab PO Q24H PRN 09/24/21 [History Last Taken Unknown] tizanidine 2 mg PO Q8H PRN 09/24/21 [History Last Taken Unknown] Allergy/AdvReac Type Severity Reaction Status Date / Time No Known Allergies Allergy Verified 09/24/21 09:26 Social History Smoking Status: Former smoker ROS Constitutional Constitutional: Denies chills, fever(s) or night sweats Eyes Eyes: Denies change in vision or double vision ENT HEENT: Denies lip swelling or tongue swelling Cardiovascular Cardiovascular: Denies chest pain, leg edema or palpitations Respiratory/Chest Respiratory/Chest: Denies cough, shortness of breath at rest, shortness of breath with exertion or wheezing Gastrointestinal Gastrointestinal: Denies diarrhea, nausea or vomiting Genitourinary Genitourinary: Denies dysuria or hematuria Musculoskeletal Musculoskeletal: Reports difficulty walking Integumentary Integumentary: Reports skin pain and wounds; Denies rash Neurologic Neurologic: Reports abnormal gait Endocrine Endocrinology: Denies cold intolerance, heat intolerance, polydipsia or polyuria Hematologic/Lymphatic Hematologic/Lymphatic: Denies easy bleeding or easy bruising Vital Signs Vital Signs Vital Signs: 11/05/21 09:31 Temperature 96.9 F L Temperature Source Temporal Pulse Rate 78 Respiratory Rate 16 Blood Pressure 124/64 H Blood Pressure Mean 84 Blood Pressure Source Monitor Blood Pressure Position Sitting Blood Pressure Location Right Forearm Weight Weight: 295 lb Body Mass Index (BMI) 37.8 Physical Exam Const alert, no apparent distress and healthy appearing General Appearance: cooperative, comfortable and well kempt Orientation / Consciousness: awake Nutritional Appearance: obese HEENT Head and Scalp: normocephalic and atraumatic Neck supple and no JVD Resp normal respiratory effort, normal air movement and no use of accessory muscles Extremity normal capillary refill, no joint enlargement and no clubbing, cyanosis or edema Skin Wounds: wounds noted Wound Narrative: Stage 3 sacral ulcer with subcutaneous tissue exposed. No tunneling, undermining, or probing to bone noted. Small to moderate amount of slough and devitalized tissue present. No periulcer warmth, erythema, or edema. No purulent/malodorous drainage. Psych mental status grossly normal, cooperative and affect normal Debridement Note Debridement Note Wound debrided: Sacral ulcer Laterality: Not Applicable Wound Grade/Stage: 3 Depth: to muscle Percentage of wound debrided: 100 Instrument Used: 7mm curette Tissue Removed: Slough and devitalized tissue Severity: Fat Layer Exposed Amount of bleeding with debridement: Mild Bleeding Controlled with: Pressure Patient tolerated procedure: Patient tolerated procedure well Post-Debridement Measurements and Additional Note: Post-Debridement Measurements/Treatment - Nurse 1 - General Ulcer Assessment Start: 10/21/21 09:58 Freq: Status: Active Protocol: LILLIAN.LOWEXT Activity Type Activity Date Activity User E-Sign Co-Sign Detail Recorded Client Recorded Date Recorded By Document 10/21/21 09:58 DL [id number] 10/21/21 10:06 DL Document 11/05/21 09:31 JF [id number] 11/05/21 09:43 JF 10/21/21 11/05/21 09:58 09:31 WC - Today's Visit Information Type of service Follow-up Visit Follow-up Visit (Physician/OPTICAL GOODS DRILLING MACHINE OPERATOR (Physician/OPTICAL GOODS DRILLING MACHINE OPERATOR ) ) Arrival Mode Wheelchair Ambulatory, Wheelchair Transfer Assistance Manual Transfer Assist (Other) x1 Patient Identification Verified (Name & Yes No ) Patient Requires Transmission-Based No Precautions Height and Weight Body Mass Index (BMI) 37.8 37.8 BMI Classification Obese Obese Vital Signs Temperature (97.8 F-99.1 F) 96.8 F L 96.9 F L Temperature Source Oral Temporal Pulse Rate (60-100) 69 78 Pulse Location Monitor Monitor Respiratory Rate (12-18) 20 H 16 Respiratory rate source Observation Observation Blood Pressure (90/60-120/80) 181/75 H 124/64 H Blood Pressure Mean (mm Hg) 110 84 Source Monitor Monitor Position Sitting Blood Pressure Location Right Forearm History Since Last Visit- (Skip if this is Patient's initial visit) Have you changed medications since your No No last visit? Any new allergies or adverse reactions No No Had a fall/change in ADL's that may No No increase risk of falls Signs or symptoms of abuse and/or No No neglect since last visit Have you been in the hospital since your No No last visit? Has dressing in place as prescribed Yes Yes Has compression in place as prescribed N/A N/A Has offloadiing in place as prescribed Yes N/A Experienced any changes in pain level or No No management Left Footwear Regular Shoe Right Footwear Regular Shoe Pain Scale: 0-10 Numeric Is Patient Pain Free? Yes Yes WC - Nurse 1 - General Ulcer Measurement Start: 10/21/21 09:58 Freq: Status: Active Protocol: Activity Type Activity Date Activity User E-Sign Co-Sign Detail Recorded Client Recorded Date Recorded By Document 10/21/21 09:58 DL [id number] 10/21/21 10:06 DL Document 11/05/21 09:31 JF [id number] 11/05/21 09:43 JF 10/21/21 11/05/21 09:58 09:31 Wound Center Nurse 1 #1- SACRAL -Combined with other wound No -Current Size (cm) - Length 4.1 3.4 -Current Size (cm) - Width 4 3.2 -Current Size (cm) - Depth 2.8 2.0 -Total Square Cm 16.4 10.88 -Photo Taken No No -Epithelialization Small 1-33% -Tunneling No -Undermining/Tunneling No -Circular Undermining No -Exudate Amt Medium Medium -Exudate Type Serosanguineous Serosanguineous -Wound Margin Distinct, Flat & Intact Outline Attached -Granulation Amt Large (67-100%) Large (67-100%) -Granulation Quality Red Red -Slough/Fibrin Yes -Necrosis Amt Small (1-33%) Small (1-33%) -Necrotic Tissue Type Adherent Slough -Structure Exposed Bone,N/A N/A -Texture (Pao-wound Skin Appearance) Scarring Assessed -Moisture (Pao-wound Skin Appearance) No Abnormality Assessed,Dry/ Scaly -Color (Pao-wound Skin Appearance) No Abnormality Assessed -Temperature (Pao-wound Skin No Abnormality No Abnormality Appearance) (Pt Warm) (Pt Warm) -Tenderness on Palpation (Pao-wound No No Skin Appearance) -Ulcer Cleansing Soap and Water Wound Cleanser -Foul Odor after Cleansing No -Anesthetic Used 4% Lidocaine 4% Lidocaine Solution Solution Lower Limb Edema Present NA - Nurse 2 - General Ulcer CM Notes Start: 10/21/21 09:58 Freq: Status: Active Protocol: Activity Type Activity Date Activity User E-Sign Co-Sign Detail Recorded Client Recorded Date Recorded By Document 10/21/21 10:17 MW [id number] 10/21/21 10:21 MW 10/21/21 10:17 Wound Center Nurse 2 #1- SACRAL -Time 10:18 -Correct Patient Yes -Correct Side, Site, Position Yes -Correct Procedure Yes -Procedure Performed Yes -Type of Procedure Debridement -Clinical Debridement Subcutaneous -Tissue Removed Subcutaneous -Post Debridement (cm) - Length 4.5 -Post Debridement (cm) - Width 3.5 -Post Debridement (cm) - Depth 3.8 -Total Square (Post) (cm) 15.75 -Area of Debridement (cm) - Length 4.5 -Area of Debridement (cm) - Width 3.5 -Total Square (Area) (cm) 15.75 -Tunneling No -Undermining/Tunneling No -Circular Undermining No -Wound/Ulcer Outcome Not Healed -Ulcer Cleansing Rinsed/ Irrigated with Saline -Foul Odor after Cleansing No -Bioengineered Tissue No -Bleeding Controlled with Pressure -Offloading No -Treatment Response Procedure Tolerated Well -Debridement - Subq, 1st 20sq cm Yes Pain Scale: 0-10 Numeric Is Patient Pain Free? Yes - Nurse 3 - General Ulcer D/C NN Start: 10/21/21 09:58 Freq: Status: Active Protocol: Activity Type Activity Date Activity User E-Sign Co-Sign Detail Recorded Client Recorded Date Recorded By Document 10/21/21 10:34 DL [id number] 10/21/21 10:35 DL 10/21/21 10:34 Wound Care Nurse 3 #1- SACRAL -Ulcer Cleansing Rinsed/ Irrigated with Saline -Foul Odor after Cleansing No -Other Dressing wet to dry today -Primary Dressing Covered/Secured with Dry Gauze, Secured with Tape Treatment Response Procedure Tolerated Well Pain Scale: 0-10 Numeric Is Patient Pain Free? Yes - Visit Discharge Discharge Condition Stable Ambulatory Status Wheelchair Facility Type [facility] Orders Sent Yes Charges/Coding Procedures Integumentary [id number]: [id number] [address] musc/fascia 20 sq cm/< Assessment/Plan Assessment/Plan (1) Stage III pressure ulcer of sacral region: CODE(S): L89.153 - Pressure ulcer of sacral region, stage 3 (2) Type 2 diabetes mellitus with other skin ulcer: CODE(S): E11.622 - Type 2 diabetes mellitus with other skin ulcer; L98.499 - Non-pressure chronic ulcer of skin of other sites with unspecified severity QUALIFIERS: Diabetes mellitus long-term insulin use: unspecified vocational placement specialist insulin use status Qualified Code(s): E11.622 - Type 2 diabetes mellitus with other skin ulcer; L98.499 - Non-pressure chronic ulcer of skin of other sites with unspecified severity (3) Obesity: CODE(S): E66.9 - Obesity, unspecified QUALIFIERS: Obesity type: unspecified obesity type Obesity classification: unspecified obesity classification Serious obesity comorbidity presence: with serious comorbidity Qualified Code(s): E66.9 - Obesity, unspecified PLAN: Debridement performed today in clinic as annotated above. At home wound-care instructions: We will continue wound VAC at 150 mmHg negative pressure, to be changed 3 times per week. Prior to each VAC reapplication, the patient may shower using antibacterial soap and water to cleanse the sacral area thoroughly. Off-loading: The patient was instructed to avoid pressure and friction on the affected areas. Use pillows to offload the sacrum when seated. He has an air mattress for offloading on his bed. Reposition every 2 hours at minimum. Frequent ambulation is encouraged. Diet: Patient encouraged to increase protein intake while taking caution to avoid high carbohydrate and/or sugar intake. Labs/cultures/imaging: -Wound culture from 09/24/2021 was positive for rare Proteus mirabilis, and positive for anaerobic cocci. The patient completed cefdinir 300 mg every 12 hours x10 days. -Labs (09/27/2021): CMP: Glucose 319 (H), BUN 60 (H), creatinine 2.3 (H), estimated GFR 30 (L), albumin 2.7 (L) CBCD: RBC 3.40 (L), hemoglobin 9.6 (L), hematocrit 30.2 (L), platelets 118 (L) Hemoglobin A1c: 6.7% CRP: 281.7 (H) Prealbumin: 11 (L) ESR: 77 (H) Follow-up: Return to clinic in 2 weeks for re-evaluation. Return sooner or report to the emergency room should symptoms worsen, or new symptoms arise. Note: [employer] speech recognition transit survey worker software was used to create portions of this document. Sound-alike and misspelled words, as well as other transit survey worker errors may be contained in the documentation.
== END 2021-11-15 23:59 ==
LOC: WC 09:15
PROVIDERS: Visit Provider Nurse Practitioner Family
DX: E11.622 Type 2 diabetes mellitus with other skin ulcer (principal); L89.153 Pressure ulcer of sacral region, stage 3; L98.491 Non-pressure chronic ulcer of skin of other sites limited to breakdown of skin; I11.0 Hypertensive heart disease with heart failure; I50.9 Heart failure, unspecified; E11.40 Type 2 diabetes mellitus with diabetic neuropathy, unspecified; Z79.4 Long term (current) use of insulin; Z87.891 Personal history of nicotine dependence; E66.9 Obesity, unspecified; G47.33 Obstructive sleep apnea (adult) (pediatric); Z86.16 Personal history of COVID-19
CPT/HCPCS: 11042; 11043

== ENCOUNTER 2021-12-10 09:26 | Outpatient (RCR) | payer MEDICAID, SELFPAY ==
[2021-11-16 00:13] VITALS: BP 124/64; PULSE 78; RESP 16; TEMP 36.1; BMI 37.8
[2021-12-10 09:33] VITALS: BP 130/61; PULSE 93; RESP 18; TEMP 35.5; BMI 37.8
--- NOTE | 2021-12-10 13:39 | PCM.WC.HP ---
History of Present Illness Date of Service: 12/10/21 Chief Complaint: Sacral ulcer History of Wound: Ovidio is a pleasant 51-year-old male who presented to the wound healing center on 09/24/2021 for an initial consult of his sacral pressure ulcer. He has a past medical history significant for type 2 diabetes mellitus, hypertension, DOMINGO, congestive heart failure, obesity, gout, osteoarthritis, neuropathy, metabolic encephalopathy, former tobacco use, and COVID-19 pneumonia. He has no known allergies. He developed his sacral ulcer while hospitalized at [facility] for COVID-19 pneumonia in June 2021. On 08/24/2021, he underwent excision and surgical debridement of his infected, unstageable sacral ulcer. A wound VAC was initiated at that time. Following his discharge from the hospital, he has been residing at [facility] in [place], [place]. He has continued to receive wound care using a wound VAC, which was increased to a 150 mmHg negative pressure. His wound VAC has been changed 3 times weekly. He has been tolerating this well, and the wound has been responding well to this treatment. He has been permitted to shower and instructed to cleanse wound with antibacterial soap and water between dressing changes. He sleeps on a bed with an air mattress for offloading. When seated in a chair, he uses pillows for offloading. He is ambulatory with a walker. A wound culture from 09/24/2021 revealed rare Proteus mirabilis and positive anaerobic cocci. Patient completed a course of cefdinir 300 mg every 12 hours x10 days. He denies any recent fever chills or poor appetite. He does note that he has had malodorous drainage from his sacral wound recently. Per nursing staff, he has had improvement of his sacral ulcer in recent weeks. Progress of Wound: Sacral ulcer continues to improve in size and appearance. He is tolerating the wound VAC well. The patient denies fever, chills, general malaise, or poor appetite. The patient has not had increased redness, swelling, or purulent/malodorous drainage from affected area. [facility] Medical History (Updated 09/24/21 @ 10:26 by Mayda Lemos NP, BUSINESS INTELLIGENCE ETL DEVELOPER-C) Obesity Stage III pressure ulcer of sacral region Type 2 diabetes mellitus with other skin ulcer Home Medications acetaminophen [Tylenol] 650 mg PO Q8H PRN 09/24/21 [History Last Taken Unknown] allopurinol 100 mg PO DAILY 09/24/21 [History Last Taken Unknown] amlodipine 5 mg PO DAILY 09/24/21 [History Last Taken Unknown] ammonium lactate 1 applic TOPICAL TID 09/24/21 [History Last Taken Unknown] calcium carbonate-vitamin D3 1 cap PO DAILY 09/24/21 [History Last Taken Unknown] carbamazepine [Tegretol XR] 100 mg PO BID 09/24/21 [History Last Taken Unknown] carbamazepine [Tegretol XR] 200 mg PO BID 09/24/21 [History Last Taken Unknown] carvedilol 25 mg PO BID 09/24/21 [History Last Taken Unknown] diphenhydramine HCl [Benadryl Allergy] 25 mg PO TID PRN 09/24/21 [History Last Taken Unknown] docusate sodium 100 mg PO BID 09/24/21 [History Last Taken Unknown] glucagon [Glucagon Emergency Kit] mg 09/24/21 [History Last Taken Unknown] hydralazine 50 mg PO TID 09/24/21 [History Last Taken Unknown] insulin glargine 60 unit SUBCUT QHS 09/24/21 [History Last Taken Unknown] insulin lispro 19 unit SUBCUT TID 09/24/21 [History Last Taken Unknown] insulin lispro [Humalog U-100 Insulin] See Protocol SUBCUT TID 09/24/21 [History Last Taken Unknown] lisinopril 40 mg PO DAILY 09/24/21 [History Last Taken Unknown] lovastatin 40 mg PO QHS 09/24/21 [History Last Taken Unknown] magnesium hydroxide [Milk of Magnesia] 30 ml PO Q4H PRN 09/24/21 [History Last Taken Unknown] melatonin 3 mg PO QHS 09/24/21 [History Last Taken Unknown] metoclopramide HCl [Reglan] 5 mg PO TID 09/24/21 [History Last Taken Unknown] ondansetron HCl [Zofran] 4 mg PO Q6H PRN 09/24/21 [History Last Taken Unknown] oxycodone [OxyContin] 20 mg PO Q12H 09/24/21 [History Last Taken Unknown] oxycodone-acetaminophen 1 tab PO Q8H PRN 09/24/21 [History Last Taken Unknown] pantoprazole [Protonix] 40 mg PO BID 09/24/21 [History Last Taken Unknown] polyethylene glycol 3350 [Miralax] 17 g PO BID PRN 09/24/21 [History Last Taken Unknown] pregabalin 300 mg PO BID 09/24/21 [History Last Taken Unknown] sumatriptan-naproxen [Treximet] 1 tab PO Q24H PRN 09/24/21 [History Last Taken Unknown] tizanidine 2 mg PO Q8H PRN 09/24/21 [History Last Taken Unknown] Allergy/AdvReac Type Severity Reaction Status Date / Time No Known Allergies Allergy Verified 09/24/21 09:26 Social History Smoking Status: Former smoker ROS Constitutional Constitutional: Denies chills, fever(s) or night sweats Eyes Eyes: Denies change in vision or double vision ENT HEENT: Denies lip swelling or tongue swelling Cardiovascular Cardiovascular: Denies chest pain, leg edema or palpitations Respiratory/Chest Respiratory/Chest: Denies cough, shortness of breath at rest, shortness of breath with exertion or wheezing Gastrointestinal Gastrointestinal: Denies diarrhea, nausea or vomiting Genitourinary Genitourinary: Denies dysuria or hematuria Musculoskeletal Musculoskeletal: Reports difficulty walking Integumentary Integumentary: Reports skin pain and wounds; Denies rash Neurologic Neurologic: Reports abnormal gait Endocrine Endocrinology: Denies cold intolerance, heat intolerance, polydipsia or polyuria Hematologic/Lymphatic Hematologic/Lymphatic: Denies easy bleeding or easy bruising Vital Signs Vital Signs Vital Signs: 12/10/21 09:33 Temperature 96 F L Temperature Source Temporal Pulse Rate 93 Respiratory Rate 18 Blood Pressure 130/61 H Blood Pressure Mean 84 Blood Pressure Source Monitor Blood Pressure Position Sitting Blood Pressure Location Left Arm Weight Weight: 295 lb Body Mass Index (BMI) 37.8 Physical Exam Const alert, no apparent distress and healthy appearing General Appearance: cooperative, comfortable and well kempt Orientation / Consciousness: awake Nutritional Appearance: obese HEENT Head and Scalp: normocephalic and atraumatic Neck supple and no JVD Resp normal respiratory effort, normal air movement and no use of accessory muscles Extremity normal capillary refill, no joint enlargement and no clubbing, cyanosis or edema Skin Wounds: wounds noted Wound Narrative: Stage 3 sacral ulcer with subcutaneous tissue exposed. No tunneling, undermining, or probing to bone noted. Small to moderate amount of slough and devitalized tissue present. No periulcer warmth, erythema, or edema. No purulent/malodorous drainage. Psych mental status grossly normal, cooperative and affect normal Debridement Note Debridement Note Wound debrided: Sacral ulcer Laterality: Not Applicable Type of Debridement: Excisional debridement Anesthesia Used: 5% Lidocaine Gel Depth: in the subcutaneous layer Percentage of wound debrided: 100 Instrument Used: 3mm curette Tissue Removed: Slough and devitalized tissue Severity: Fat Layer Exposed Amount of bleeding with debridement: Mild Bleeding Controlled with: Pressure Patient tolerated procedure: Patient tolerated procedure well Post-Debridement Measurements and Additional Note: Post-Debridement Measurements/Treatment - Nurse 1 - General Ulcer Assessment Start: 12/10/21 09:32 Freq: Status: Active Protocol: CHRISSY Activity Type Activity Date Activity User E-Sign Co-Sign Detail Recorded Client Recorded Date Recorded By Document 12/10/21 09:33 FL [id number] 12/10/21 09:41 FL 12/10/21 09:33 - Today's Visit Information Type of service Follow-up Visit (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/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 ) Arrival Mode Ambulatory Accompanied by self Patient Identification Verified (Name & Yes ) Finger Stick Blood Sugar(mg/dl) (if 152 indicated): Blood Sugar Stated by Patient Height and Weight Body Mass Index (BMI) 37.8 BMI Classification Obese Vital Signs Temperature (97.8 F-99.1 F) 96 F L Temperature Source Temporal Pulse Rate (60-100) 93 Pulse Location Monitor Respiratory Rate (12-18) 18 Respiratory rate source Observation Blood Pressure (90/60-120/80) 130/61 H Blood Pressure Mean 84 Source Monitor Position Sitting Blood Pressure Location Left Arm History Since Last Visit- (Skip if this is Patient's initial visit) Has dressing in place as prescribed Yes Has compression in place as prescribed Yes Has offloadiing in place as prescribed Yes Experienced any changes in pain level or Yes management Left Footwear Regular Shoe Right Footwear Regular Shoe Pain Scale: 0-10 Numeric Is Patient Pain Free? Yes - Nurse 1 - General Ulcer Measurement Start: 12/10/21 09:32 Freq: Status: Active Protocol: Activity Type Activity Date Activity User E-Sign Co-Sign Detail Recorded Client Recorded Date Recorded By Document 12/10/21 09:33 FL [id number] 12/10/21 09:41 MT 12/10/21 09:33 Wound Center Nurse 1 #1- SACRAL -Current Size (cm) - Length 1.5 -Current Size (cm) - Width 3.0 -Current Size (cm) - Depth 0.2 -Total Square Cm 4.50 -Tunneling Yes -Tunneling Position (O'clock) 12 -Tunneling Distance (cm) 1.5 -Exudate Amt Small -Exudate Type Serosanguineous -Wound Margin Thickened -Granulation Amt Large (67-100%) -Granulation Quality [place] -Slough/Fibrin No -Texture (Pao-wound Skin Appearance) Assessed -Moisture (Pao-wound Skin Appearance) Assessed -Color (Pao-wound Skin Appearance) No Abnormality -Temperature (Pao-wound Skin No Abnormality Appearance) (Pt Warm) -Tenderness on Palpation (Pao-wound No Skin Appearance) -Ulcer Cleansing Soap and Water -Foul Odor after Cleansing No -Anesthetic Used 5% Lidocaine Gel Lower Limb Edema Present NA WC - Nurse 2 - General Ulcer CM Notes Start: 12/10/21 09:32 Freq: Status: Active Protocol: Activity Type Activity Date Activity User E-Sign Co-Sign Detail Recorded Client Recorded Date Recorded By Document 12/10/21 13:[address] [id number] 12/10/21 13:30 PL 12/10/21 13:29 Wound Center Nurse 2 #1- SACRAL -Time 10:05 -Correct Patient Yes -Correct Side, Site, Position Yes -Correct Procedure Yes -Procedure Performed Yes -Type of Procedure Debridement -Clinical Debridement Subcutaneous -Tissue Removed Subcutaneous -Post Debridement (cm) - Length 2.5 -Post Debridement (cm) - Width 2.4 -Post Debridement (cm) - Depth 1.9 -Total Square (Post) (cm) 6.00 -Area of Debridement (cm) - Length 2.5 -Area of Debridement (cm) - Width 2.4 -Total Square (Area) (cm) 6.00 -Tunneling Yes -Tunneling Position (O'clock) 12 -Tunneling Distance (cm) 0.3 -Undermining/Tunneling No -Circular Undermining No -Wound/Ulcer Outcome Not Healed -Ulcer Cleansing Rinsed/ Irrigated with Saline -Foul Odor after Cleansing No -Bioengineered Tissue No -Bleeding Controlled with Pressure -Treatment Response Procedure Tolerated Well -Debridement - Subq, 1st 20sq cm Yes Pain Scale: 0-10 Numeric Is Patient Pain Free? Yes - Nurse 3 - General Ulcer D/C NN Start: 12/10/21 09:32 Freq: Status: Active Protocol: Activity Type Activity Date Activity User E-Sign Co-Sign Detail Recorded Client Recorded Date Recorded By Document 12/10/21 10:32 FL [id number] 12/10/21 10:33 FL 12/10/21 10:32 Wound Care Nurse 3 #1- SACRAL -Ulcer Cleansing Rinsed/ Irrigated with Saline -Other Dressing wet to dry -Other Covering wound vac when gets to long term Pain Scale: 0-10 Numeric Is Patient Pain Free? Yes - Visit Discharge Discharge Condition Stable Ambulatory Status Ambulatory, Walker Transportation Private Auto Medication Reconcilliation completed & No provided to patient/care provider Clinical Summary of Care Provided Yes Charges/Coding Procedures Integumentary 111xxx-113xx: 9[address] Evangelina subq tissue 20 sq cm/< Assessment/Plan Assessment/Plan (1) Stage III pressure ulcer of sacral region: CODE(S): L89.153 - Pressure ulcer of sacral region, stage 3 (2) Type 2 diabetes mellitus with other skin ulcer: CODE(S): E11.622 - Type 2 diabetes mellitus with other skin ulcer; L98.499 - Non-pressure chronic ulcer of skin of other sites with unspecified severity QUALIFIERS: Diabetes mellitus termite control service representative insulin use: unspecified termite control service representative insulin use status Qualified Code(s): E11.622 - Type 2 diabetes mellitus with other skin ulcer; L98.499 - Non-pressure chronic ulcer of skin of other sites with unspecified severity (3) Obesity: CODE(S): E66.9 - Obesity, unspecified QUALIFIERS: Obesity type: unspecified obesity type Obesity classification: unspecified obesity classification Serious obesity comorbidity presence: with serious comorbidity Qualified Code(s): E66.9 - Obesity, unspecified PLAN: Debridement performed today in clinic as annotated above. At home wound-care instructions: We will continue wound VAC at 150 mmHg negative pressure, to be changed 3 times per week. Prior to each VAC reapplication, the patient may shower using antibacterial soap and water to cleanse the sacral area thoroughly. We will apply for a snap VAC due to improvement in the patient's wound; if approved, this will be changed once weekly. Off-loading: The patient was instructed to avoid pressure and friction on the affected areas. Use pillows to offload the sacrum when seated. He has an air mattress for offloading on his bed. Reposition every 2 hours at minimum. Frequent ambulation is encouraged. Diet: Patient encouraged to increase protein intake while taking caution to avoid high carbohydrate and/or sugar intake. Labs/cultures/imaging: -Wound culture from 09/24/2021 was positive for rare Proteus mirabilis, and positive for anaerobic cocci. The patient completed cefdinir 300 mg every 12 hours x10 days. -Labs (09/27/2021): CMP: Glucose 319 (H), BUN 60 (H), creatinine 2.3 (H), estimated GFR 30 (L), albumin 2.7 (L) CBCD: RBC 3.40 (L), hemoglobin 9.6 (L), hematocrit 30.2 (L), platelets 118 (L) Hemoglobin A1c: 6.7% CRP: 281.7 (H) Prealbumin: 11 (L) ESR: 77 (H) Follow-up: Return to clinic in 2 weeks for re-evaluation by provider. Return sooner or report to the emergency room should symptoms worsen, or new symptoms arise. If approved for Snap VAC, we will have patient return for nurse visit to apply Snap VAC MUSA. Note: SlideJar speech recognition attorney lawyer software was used to create portions of this document. Sound-alike and misspelled words, as well as other attorney lawyer errors may be contained in the documentation.
== END 2021-12-13 23:59 | disposition home or self-care (01) ==
LOC: WC 09:26
PROVIDERS: Visit Provider Nurse Practitioner Family
DX: E11.622 Type 2 diabetes mellitus with other skin ulcer (principal); L89.153 Pressure ulcer of sacral region, stage 3; L98.491 Non-pressure chronic ulcer of skin of other sites limited to breakdown of skin; I11.0 Hypertensive heart disease with heart failure; I50.9 Heart failure, unspecified; E11.40 Type 2 diabetes mellitus with diabetic neuropathy, unspecified; Z79.4 Long term (current) use of insulin; E66.9 Obesity, unspecified; Z87.891 Personal history of nicotine dependence; Z68.37 Body mass index [BMI] 37.0-37.9, adult
CPT/HCPCS: 11042

== ENCOUNTER 2022-01-07 09:15 | Outpatient (RCR) | payer MEDICAID, SELFPAY ==
[2021-12-14 00:19] VITALS: BP 130/61; PULSE 93; RESP 18; TEMP 35.5; BMI 37.8
[2021-12-24 09:55] VITALS: BP 120/54; PULSE 81; TEMP 35.7; BMI 37.8
--- NOTE | 2021-12-24 11:09 | PN.PCM_ITS ---
History of Present Illness Date of Service: 12/24/21 Chief Complaint: Sacral ulcer History of Wound: Ovidio is a pleasant 51-year-old male who presented to the wound healing center on 09/24/2021 for an initial consult of his sacral pressure ulcer. He has a past medical history significant for type 2 diabetes mellitus, hypertension, DOMINGO, congestive heart failure, obesity, gout, osteoarthritis, neuropathy, metabolic encephalopathy, former tobacco use, and COVID-19 pneumonia. He has no known allergies. He developed his sacral ulcer while hospitalized at [facility] for COVID-19 pneumonia in June 2021. On 08/24/2021, he underwent excision and surgical debridement of his infected, unstageable sacral ulcer. A wound VAC was initiated at that time. Following his discharge from the hospital, he has been residing at [facility] in [place], [place]. He has continued to receive wound care using a wound VAC, which was increased to a 150 mmHg negative pressure. His wound VAC has been changed 3 times weekly. He has been tolerating this well, and the wound has been responding well to this treatment. He has been permitted to shower and instructed to cleanse wound with antibacterial soap and water between dressing changes. He sleeps on a bed with an air mattress for offloading. When seated in a chair, he uses pillows for offloading. He is ambulatory with a walker. A wound culture from 09/24/2021 revealed rare Proteus mirabilis and positive anaerobic cocci. Patient completed a course of cefdinir 300 mg every 12 hours x10 days. He denies any recent fever chills or poor appetite. He does note that he has had malodorous drainage from his sacral wound recently. Progress of Wound: Patient's wound is again improved in size and appearance. The patient denies fever, chills, general malaise, or poor appetite. The patient has not had increased redness, swelling, or purulent/malodorous drainage from affected area. Objective Data Objective Data Vital Signs: Vital Signs Temp Pulse Resp BP 96.3 F L 81 18 120/54 L 12/24/21 09:55 12/24/21 09:55 12/14/21 00:19 12/24/21 09:55 Weight: 295 lb Body Mass Index (BMI) 37.8 Charges/Coding Procedures Integumentary 111xxx-113xx: 11212 Evangelina subq tissue 20 sq cm/< Physical Exam Const alert, no apparent distress and healthy appearing General Appearance: cooperative, comfortable and well kempt Orientation / Consciousness: awake Nutritional Appearance: obese HEENT Head and Scalp: normocephalic and atraumatic Neck supple and no JVD Resp normal respiratory effort, normal air movement and no use of accessory muscles Extremity normal capillary refill, no joint enlargement and no clubbing, cyanosis or edema Skin Wounds: wounds noted Wound Narrative: Stage 3 sacral ulcer with subcutaneous tissue exposed. Tunnel at 12:00. No undermining or probing to bone noted. Small amount of slough and devitalized tissue present. No periulcer warmth, erythema, or edema. No purulent/malodorous drainage. Psych mental status grossly normal, cooperative and affect normal Debridement Note Debridement Note Wound debrided: Sacral ulcer Laterality: Not Applicable Wound Grade/Stage: Stage III Type of Debridement: Excisional debridement Anesthesia Used: 4% Lidocaine Solution Depth: in the subcutaneous layer Percentage of wound debrided: 100 Instrument Used: 3mm curette Tissue Removed: Slough and devitalized tissue Severity: Fat Layer Exposed Amount of bleeding with debridement: Moderate Bleeding Controlled with: Compression and gauze Patient tolerated procedure: Patient tolerated procedure well Post-Debridement Measurements and Additional Note: Post-Debridement Measurements/Treatment - Nurse 1 - General Ulcer Assessment Start: 12/24/21 09:52 Freq: Status: Active Protocol: .MADISYN Activity Type Activity Date Activity User E-Sign Co-Sign Detail Recorded Client Recorded Date Recorded By Document 12/24/21 09:55 MN [id number] 12/24/21 09:59 MN 12/24/21 09:55 - Today's Visit Information Type of service 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 Any new allergies or adverse reactions No Had a fall/change in ADL's that may No increase risk of falls Signs or symptoms of abuse and/or No neglect since last visit Have you been in the hospital since your No last visit? Has dressing in place as prescribed Yes Has compression in place as prescribed No Has offloadiing in place as prescribed No Experienced any changes in pain level or No management Left Footwear Regular Shoe Right Footwear Regular Shoe Pain Scale: 0-10 Numeric Is Patient Pain Free? Yes LILLIAN - Nurse 1 - General Ulcer Measurement Start: 12/24/21 09:52 Freq: Status: Active Protocol: Activity Type Activity Date Activity User E-Sign Co-Sign Detail Recorded Client Recorded Date Recorded By Document 12/24/21 09:55 MN [id number] 12/24/21 09:59 MN 12/24/21 09:55 Wound Center Nurse 1 #1- SACRAL -Combined with other wound No -Current Size (cm) - Length 1 -Current Size (cm) - Width 1.4 -Current Size (cm) - Depth 0.4 -Total Square Cm 1.4 -Photo Taken No -Epithelialization None Present -Tunneling No -Undermining/Tunneling No -Circular Undermining No -Change in Wound Grade/Stage No -Exudate Amt Small -Exudate Type Serosanguineous -Wound Margin Distinct, Outline Attached -Granulation Amt None Present (0 %) -Granulation Quality [place] -Slough/Fibrin Yes -Necrosis Amt Small (1-33%) -Necrotic Tissue Type Adherent Slough -Structure Exposed N/A -Texture (Pao-wound Skin Appearance) No Abnormality, Assessed -Moisture (Pao-wound Skin Appearance) No Abnormality, Assessed -Color (Pao-wound Skin Appearance) No Abnormality, Assessed -Temperature (Pao-wound Skin No Abnormality Appearance) (Pt Warm) -Tenderness on Palpation (Pao-wound No Skin Appearance) -Ulcer Cleansing Rinsed/ Irrigated with Saline -Foul Odor after Cleansing No -Anesthetic Used 4% Lidocaine Solution LILLIAN - Nurse 3 - General Ulcer D/C NN Start: 12/24/21 09:52 Freq: Status: Active Protocol: Activity Type Activity Date Activity User E-Sign Co-Sign Detail Recorded Client Recorded Date Recorded By Document 12/24/21 10:25 CT [id number] 12/24/21 10:31 CT 12/24/21 10:25 Wound Care Nurse 3 -Primary Dressing Applied Aquacel Rope, Mepilex Border -Aquacel Rope 2 -Mepilex Border 3 Pain Scale: 0-10 Numeric Is Patient Pain Free? Yes WC - Visit Discharge Discharge Condition Stable Ambulatory Status Ambulatory Medication Reconcilliation completed & Yes provided to patient/care provider Clinical Summary of Care Provided Yes Assessment/Plan Assessment/Plan (1) Stage III pressure ulcer of sacral region: CODE(S): L89.153 - Pressure ulcer of sacral region, stage 3 (2) Type 2 diabetes mellitus with other skin ulcer: CODE(S): E11.622 - Type 2 diabetes mellitus with other skin ulcer; L98.499 - Non-pressure chronic ulcer of skin of other sites with unspecified severity QUALIFIERS: Diabetes mellitus gps field data collector insulin use: unspecified gps field data collector insulin use status Qualified Code(s): E11.622 - Type 2 diabetes mellitus with other skin ulcer; L98.499 - Non-pressure chronic ulcer of skin of other sites with unspecified severity (3) Obesity: CODE(S): E66.9 - Obesity, unspecified QUALIFIERS: Obesity type: unspecified obesity type Obesity classification: unspecified obesity classification Serious obesity comorbidity presence: with serious comorbidity Qualified Code(s): E66.9 - Obesity, unspecified PLAN: Debridement performed today in clinic as annotated above. At home wound-care instructions: We will discontinue wound VAC. Begin daily dressing changes with Aquacel Ag, packing dressing into 12:00 tunnel, and covering remainder of wound bed. Cleanse the wound thoroughly with antibacterial soap and water prior to each dressing change, and rinse and dry thoroughly before applying new dressing. Off-loading: The patient was instructed to avoid pressure and friction on the affected areas. Use pillows to offload the sacrum when seated. He has an air mattress for offloading on his bed. Reposition every 2 hours at minimum. Frequent ambulation is encouraged. Diet: Patient encouraged to increase protein intake while taking caution to avoid high carbohydrate and/or sugar intake. Labs/cultures/imaging: -Wound culture from 09/24/2021 was positive for rare Proteus mirabilis, and positive for anaerobic cocci. The patient completed cefdinir 300 mg every 12 hours x10 days. -Labs (09/27/2021): CMP: Glucose 319 (H), BUN 60 (H), creatinine 2.3 (H), estimated GFR 30 (L), albumin 2.7 (L) CBCD: RBC 3.40 (L), hemoglobin 9.6 (L), hematocrit 30.2 (L), platelets 118 (L) Hemoglobin A1c: 6.7% CRP: 281.7 (H) Prealbumin: 11 (L) ESR: 77 (H) Follow-up: Return to clinic in 2 weeks for re-evaluation by provider. Return sooner or report to the emergency room should symptoms worsen, or new symptoms arise. Note: Walk-in speech recognition type caster software was used to create portions of this document. Sound-alike and misspelled words, as well as other type caster errors may be contained in the documentation.
[2022-01-07 09:26] VITALS: BP 119/61; PULSE 94; TEMP 36.1; BMI 37.8
--- NOTE | 2022-01-07 15:13 | PN.PCM_ITS ---
History of Present Illness Date of Service: 01/07/22 Chief Complaint: Sacral ulcer History of Wound: Ovidio is a pleasant 51-year-old male who presented to the wound healing center on 09/24/2021 for an initial consult of his sacral pressure ulcer. He has a past medical history significant for type 2 diabetes mellitus, hypertension, DOMINGO, congestive heart failure, obesity, gout, osteoarthritis, neuropathy, metabolic encephalopathy, former tobacco use, and COVID-19 pneumonia. He has no known allergies. He developed his sacral ulcer while hospitalized at [facility] for COVID-19 pneumonia in June 2021. On 08/24/2021, he underwent excision and surgical debridement of his infected, unstageable sacral ulcer. A wound VAC was initiated at that time. Following his discharge from the hospital, he has been residing at [facility] in [place], [place]. He has continued to receive wound care using a wound VAC, which was increased to a 150 mmHg negative pressure. His wound VAC has been changed 3 times weekly. He has been tolerating this well, and the wound has been responding well to this treatment. He has been permitted to shower and instructed to cleanse wound with antibacterial soap and water between dressing changes. He sleeps on a bed with an air mattress for offloading. When seated in a chair, he uses pillows for offloading. He is ambulatory with a walker. A wound culture from 09/24/2021 revealed rare Proteus mirabilis and positive anaerobic cocci. Patient completed a course of cefdinir 300 mg every 12 hours x10 days. He denies any recent fever chills or poor appetite. He does note that he has had malodorous drainage from his sacral wound recently. Progress of Wound: Patient's wound is again improved in size and appearance. The patient denies fever, chills, general malaise, or poor appetite. The patient has not had increased redness, swelling, or purulent/malodorous drainage from affected area. Objective Data Objective Data Vital Signs: Vital Signs Temp Pulse Resp BP 96.9 F L 94 18 119/61 01/07/22 09:26 01/07/22 09:26 12/14/21 00:19 01/07/22 09:26 Weight: 295 lb Body Mass Index (BMI) 37.8 Charges/Coding Procedures Integumentary 111xxx-113xx: 46820 Evangelina subq tissue 20 sq cm/< Physical Exam Const alert, no apparent distress and healthy appearing General Appearance: cooperative, comfortable and well kempt Orientation / Consciousness: awake Nutritional Appearance: obese HEENT Head and Scalp: normocephalic and atraumatic Neck supple and no JVD Resp normal respiratory effort, normal air movement and no use of accessory muscles Extremity normal capillary refill, no joint enlargement and no clubbing, cyanosis or edema Skin Wounds: wounds noted Wound Narrative: Sacral ulcer with subcutaneous tissue exposed. Tunnel at 12:00. No undermining or probing to bone noted. Small amount of slough and devitalized tissue present. No periulcer warmth, erythema, or edema. No purulent/malodorous drainage. Psych mental status grossly normal, cooperative and affect normal Debridement Note Debridement Note Wound debrided: Sacral ulcer Laterality: Not Applicable Type of Debridement: Excisional debridement Anesthesia Used: 4% Lidocaine Solution Depth: in the subcutaneous layer Percentage of wound debrided: 100 Instrument Used: 3mm curette Tissue Removed: Slough and devitalized tissue Severity: Fat Layer Exposed Amount of bleeding with debridement: None Bleeding Controlled with: Pressure Patient tolerated procedure: Patient tolerated procedure well Post-Debridement Measurements and Additional Note: Post-Debridement Measureme nts/Treatment - Nurse 1 - General Ulcer Assessment Start: 12/24/21 09:52 Freq: Status: Active Protocol: CHRISSY Activity Type Activity Date Activity User E-Sign Co-Sign Detail Recorded Client Recorded Date Recorded By Document 12/24/21 09:55 CA [id number] 12/24/21 09:59 AK Document 01/07/22 09:26 CA [id number] 01/07/22 09:28 AK 12/24/21 01/07/22 09:55 09:26 - Today's Visit Information Type of service Follow-up Visit Follow-up Visit (Physician/MULE RIDER (Physician/MULE RIDER ) ) Arrival Mode Ambulatory, Ambulatory, Walker Walker Patient Identification Verified (Name & Yes Yes ) Patient Requires Transmission-Based No No Precautions Height and Weight Body Mass Index (BMI) 37.8 37.8 BMI Classification Obese Obese Vital Signs Temperature (97.8 F-99.1 F) 96.3 F L 96.9 F L Temperature Source Temporal Temporal Pulse Rate (60-100) 81 94 Pulse Location Monitor Monitor Blood Pressure (90/60-120/80) 120/54 L 119/61 Blood Pressure Mean (mm Hg) 76 80 Source Monitor Monitor History Since Last Visit- (Skip if this is Patient's initial visit) Have you changed medications since your No No last visit? Any new allergies or adverse reactions No No Had a fall/change in ADL's that may No No increase risk of falls Signs or symptoms of abuse and/or No No neglect since last visit Have you been in the hospital since your No No last visit? Has dressing in place as prescribed Yes Yes Has compression in place as prescribed No N/A Has offloadiing in place as prescribed No N/A Experienced any changes in pain level or No No management Left Footwear Regular Shoe Regular Shoe Right Footwear Regular Shoe Regular Shoe Pain Scale: 0-10 Numeric Is Patient Pain Free? Yes Yes WC - Nurse 1 - General Ulcer Measurement Start: 12/24/21 09:52 Freq: Status: Active Protocol: Activity Type Activity Date Activity User E-Sign Co-Sign Detail Recorded Client Recorded Date Recorded By Document 12/24/21 09:55 CA [id number] 12/24/21 09:59 AK Document 01/07/22 09:26 CA [id number] 01/07/22 09:28 AK 12/24/21 01/07/22 09:55 09:26 Wound Center Nurse 1 #1- SACRAL -Combined with other wound No No -Current Size (cm) - Length 1 0.1 -Current Size (cm) - Width 1.4 0.2 -Current Size (cm) - Depth 0.4 0.1 -Total Square Cm 1.4 0.02 -Photo Taken No No -Epithelialization None Present Medium 34-66% -Tunneling No No -Undermining/Tunneling No No -Circular Undermining No No -Change in Wound Grade/Stage No No -Exudate Amt Small None Present -Exudate Type Serosanguineous -Wound Margin Distinct, Distinct, Outline Outline Attached Attached -Granulation Amt None Present (0 Medium (34-66%) %) -Granulation Quality [place] Pale,[place] -Slough/Fibrin Yes No -Necrosis Amt Small (1-33%) None Present (0 %) -Necrotic Tissue Type Adherent Slough -Structure Exposed N/A N/A -Texture (Pao-wound Skin Appearance) No Abnormality, No Abnormality, Assessed Assessed -Moisture (Pao-wound Skin Appearance) No Abnormality, No Abnormality, Assessed Assessed -Color (Pao-wound Skin Appearance) No Abnormality, No Abnormality, Assessed Assessed -Temperature (Pao-wound Skin No Abnormality No Abnormality Appearance) (Pt Warm) (Pt Warm) -Tenderness on Palpation (Pao-wound No No Skin Appearance) -Ulcer Cleansing Rinsed/ Rinsed/ Irrigated with Irrigated with Saline Saline -Foul Odor after Cleansing No No -Anesthetic Used 4% Lidocaine 4% Lidocaine Solution Solution WC - Nurse 2 - General Ulcer CM Notes Start: 12/24/21 09:52 Freq: Status: Active Protocol: Activity Type Activity Date Activity User E-Sign Co-Sign Detail Recorded Client Recorded Date Recorded By Document 12/24/21 13:31 PL [id number] 12/24/21 13:32 PL Document 01/07/22 13:23 PL [id number] 01/07/22 13:25 PL 12/24/21 01/07/22 13:31 13:23 Wound Center Nurse 2 #1- SACRAL -Time 10:12 10:03 -Correct Patient Yes Yes -Correct Side, Site, Position Yes Yes -Correct Procedure Yes Yes -Procedure Performed Yes Yes -Type of Procedure Debridement Debridement -Clinical Debridement Subcutaneous Subcutaneous -Tissue Removed Subcutaneous Subcutaneous -Post Debridement (cm) - Length 1 1.1 -Post Debridement (cm) - Width 1.4 1.0 -Post Debridement (cm) - Depth 0.4 0.1 -Total Square (Post) (cm) 1.4 1.10 -Area of Debridement (cm) - Length 1.0 1.1 -Area of Debridement (cm) - Width 1.4 1.0 -Total Square (Area) (cm) 1.40 1.10 -Tunneling No No -Undermining/Tunneling No No -Circular Undermining No No -Wound/Ulcer Outcome Not Healed Not Healed -Ulcer Cleansing Rinsed/ Rinsed/ Irrigated with Irrigated with Saline Saline -Foul Odor after Cleansing No No -Bioengineered Tissue No No -Bleeding Controlled with Pressure Pressure -Treatment Response Procedure Procedure Tolerated Well Tolerated Well -Debridement - Subq, 1st 20sq cm Yes Yes Pain Scale: 0-10 Numeric Is Patient Pain Free? Yes Yes WC - Nurse 3 - General Ulcer D/C NN Start: 12/24/21 09:52 Freq: Status: Active Protocol: Activity Type Activity Date Activity User E-Sign Co-Sign Detail Recorded Client Recorded Date Recorded By Document 12/24/21 10:25 VT [id number] 12/24/21 10:31 VT 12/24/21 10:25 Wound Care Nurse 3 #1- SACRAL -Primary Dressing Applied Aquacel Rope, Mepilex Border -Aquacel Rope 2 -Mepilex Border 3 Pain Scale: 0-10 Numeric Is Patient Pain Free? Yes WC - Visit Discharge Discharge Condition Stable Ambulatory Status Ambulatory Medication Reconcilliation completed & Yes provided to patient/care provider Clinical Summary of Care Provided Yes Assessment/Plan Assessment/Plan (1) Stage III pressure ulcer of sacral region: CODE(S): L89.153 - Pressure ulcer of sacral region, stage 3 (2) Type 2 diabetes mellitus with other skin ulcer: CODE(S): E11.622 - Type 2 diabetes mellitus with other skin ulcer; L98.499 - Non-pressure chronic ulcer of skin of other sites with unspecified severity QUALIFIERS: Diabetes mellitus skilled nursing insulin use: unspecified fitness studies teacher insulin use status Qualified Code(s): E11.622 - Type 2 diabetes mellitus with other skin ulcer; L98.499 - Non-pressure chronic ulcer of skin of other sites with unspecified severity (3) Obesity: CODE(S): E66.9 - Obesity, unspecified QUALIFIERS: Obesity type: unspecified obesity type Obesity classification: unspecified obesity classification Serious obesity comorbidity presence: with serious comorbidity Qualified Code(s): E66.9 - Obesity, unspecified PLAN: Debridement performed today in clinic as annotated above. At home wound-care instructions: Continue daily dressing changes with Aquacel Ag, packing dressing into 12:00 tunnel, and covering remainder of wound bed. Cleanse the wound thoroughly with antibacterial soap and water prior to each dressing change, and rinse and dry thoroughly before applying new dressing. Off-loading: The patient was instructed to avoid pressure and friction on the affected areas. Use pillows to offload the sacrum when seated. He has an air mattress for offloading on his bed. Reposition every 2 hours at minimum. Frequent ambulation is encouraged. Diet: Patient encouraged to increase protein intake while taking caution to avoid high carbohydrate and/or sugar intake. Labs/cultures/imaging: -Wound culture from 09/24/2021 was positive for rare Proteus mirabilis, and positive for anaerobic cocci. The patient completed cefdinir 300 mg every 12 hours x10 days. -Labs (09/27/2021): CMP: Glucose 319 (H), BUN 60 (H), creatinine 2.3 (H), estimated GFR 30 (L), albumin 2.7 (L) CBCD: RBC 3.40 (L), hemoglobin 9.6 (L), hematocrit 30.2 (L), platelets 118 (L) Hemoglobin A1c: 6.7% CRP: 281.7 (H) Prealbumin: 11 (L) ESR: 77 (H) Follow-up: Return to clinic in 2 weeks for re-evaluation by provider. Return sooner or report to the emergency room should symptoms worsen, or new symptoms arise. Note: [employer]. speech recognition motion designer software was used to create portions of this document. Sound-alike and misspelled words, as well as other motion designer errors may be contained in the documentation.
== END 2022-01-13 23:59 | disposition home or self-care (01) ==
LOC: WC 09:15
PROVIDERS: Visit Provider Nurse Practitioner Family
DX: E11.622 Type 2 diabetes mellitus with other skin ulcer (principal); L89.153 Pressure ulcer of sacral region, stage 3; L98.491 Non-pressure chronic ulcer of skin of other sites limited to breakdown of skin; I11.0 Hypertensive heart disease with heart failure; I50.9 Heart failure, unspecified; E11.40 Type 2 diabetes mellitus with diabetic neuropathy, unspecified; Z79.4 Long term (current) use of insulin; E66.9 Obesity, unspecified; Z86.16 Personal history of COVID-19
CPT/HCPCS: 11042

== ENCOUNTER 2022-02-04 09:15 | Outpatient (RCR) | payer MEDICAID, SELFPAY ==
[2022-01-14 00:21] VITALS: BP 119/61; PULSE 94; RESP 18; TEMP 36.1; BMI 37.8
[2022-01-21 09:05] VITALS: BP 138/44; PULSE 97; TEMP 36.1; BMI 37.8
--- NOTE | 2022-01-21 12:31 | PCM.WC.PN ---
History of Present Illness Date of Service: 01/21/22 Chief Complaint: Sacral ulcer History of Wound: Ovidio is a pleasant 51-year-old male who presented to the wound healing center on 09/24/2021 for an initial consult of his sacral pressure ulcer. He has a past medical history significant for type 2 diabetes mellitus, hypertension, DOMINGO, congestive heart failure, obesity, gout, osteoarthritis, neuropathy, metabolic encephalopathy, former tobacco use, and COVID-19 pneumonia. He has no known allergies. He developed his sacral ulcer while hospitalized at [facility] for COVID-19 pneumonia in June 2021. On 08/24/2021, he underwent excision and surgical debridement of his infected, unstageable sacral ulcer. A wound VAC was initiated at that time. Following his discharge from the hospital, he has been residing at [facility] in [place], [place]. He has continued to receive wound care using a wound VAC, which was increased to a 150 mmHg negative pressure. His wound VAC has been changed 3 times weekly. He has been tolerating this well, and the wound has been responding well to this treatment. He has been permitted to shower and instructed to cleanse wound with antibacterial soap and water between dressing changes. He sleeps on a bed with an air mattress for offloading. When seated in a chair, he uses pillows for offloading. He is ambulatory with a walker. A wound culture from 09/24/2021 revealed rare Proteus mirabilis and positive anaerobic cocci. Patient completed a course of cefdinir 300 mg every 12 hours x10 days. He denies any recent fever chills or poor appetite. He does note that he has had malodorous drainage from his sacral wound recently. Progress of Wound: Wound is again improved in size and appearance. Patient is tolerating Aquacel AG well. The patient denies fever, chills, general malaise, or poor appetite. The patient has not had increased redness, swelling, or purulent/malodorous drainage from affected area. Objective Data Objective Data Vital Signs: Vital Signs Temp Pulse Resp BP 97.0 F L 97 18 138/44 H 01/21/22 09:05 01/21/22 09:05 01/14/22 00:21 01/21/22 09:05 Weight: 295 lb Body Mass Index (BMI) 37.8 Charges/Coding Procedures Integumentary 111xxx-113xx: 03809 Evangelina subq tissue 20 sq cm/< Physical Exam Const alert, no apparent distress and healthy appearing General Appearance: cooperative, comfortable and well kempt Orientation / Consciousness: awake Nutritional Appearance: obese HEENT Head and Scalp: normocephalic and atraumatic Neck supple and no JVD Resp normal respiratory effort, normal air movement and no use of accessory muscles Extremity normal capillary refill, no joint enlargement and no clubbing, cyanosis or edema Skin Wounds: wounds noted Wound Narrative: Sacral ulcer with subcutaneous tissue exposed. Tunnel at 12:00. No undermining or probing to bone noted. Scant amount of slough and devitalized tissue present. No periulcer warmth, erythema, or edema. No purulent/malodorous drainage. Psych mental status grossly normal, cooperative and affect normal Debridement Note Debridement Note Wound debrided: Sacral ulcer Laterality: Not Applicable Type of Debridement: Excisional debridement Anesthesia Used: 4% Lidocaine Solution Depth: in the subcutaneous layer Percentage of wound debrided: 100 Instrument Used: 3mm curette Tissue Removed: Slough and devitalized tissue Severity: Fat Layer Exposed Amount of bleeding with debridement: Mild Bleeding Controlled with: Pressure Patient tolerated procedure: Patient tolerated procedure well Post-Debridement Measurements and Additional Note: Post-Debridement Measurements/Treatment - Nurse 1 - General Ulcer Assessment Start: 01/21/22 09:05 Freq: Status: Active Protocol: CHRISSY Activity Type Activity Date Activity User E-Sign Co-Sign Detail Recorded Client Recorded Date Recorded By Document 01/21/22 09:05 FELECIA [id number] 01/21/22 09:07 FELECIA 01/21/22 09:05 - Today's Visit Information Type of service Follow-up Visit (Physician/REGULATORY SPECIALIST ) Arrival Mode Ambulatory, Walker Patient Identification Verified (Name & Yes ) Height and Weight Body Mass Index (BMI) 37.8 BMI Classification Obese Vital Signs Temperature (97.8 F-99.1 F) 97.0 F L Temperature Source Temporal Pulse Rate (60-100) 97 Pulse Location Monitor Blood Pressure (90/60-120/80) 138/44 H Blood Pressure Mean (mm Hg) 75 Source Monitor Position Sitting Blood Pressure Location Left Arm History Since Last Visit- (Skip if this is Patient's initial visit) Have you changed medications since your No last visit? Any new allergies or adverse reactions No Had a fall/change in ADL's that may No increase risk of falls Signs or symptoms of abuse and/or No neglect since last visit Have you been in the hospital since your No last visit? Has dressing in place as prescribed Yes Has compression in place as prescribed N/A Has offloadiing in place as prescribed N/A Experienced any changes in pain level or No management Left Footwear Regular Shoe Right Footwear Regular Shoe Pain Scale: 0-10 Numeric Is Patient Pain Free? Yes WC - Nurse 1 - General Ulcer Measurement Start: 01/21/22 09:05 Freq: Status: Active Protocol: Activity Type Activity Date Activity User E-Sign Co-Sign Detail Recorded Client Recorded Date Recorded By Document 01/21/22 09:05 FELECIA [id number] 01/21/22 09:07 KR 01/21/22 09:05 Wound Center Nurse 1 #1- SACRAL -Current Size (cm) - Length 0.9 -Current Size (cm) - Width 1 -Current Size (cm) - Depth 0.2 -Total Square Cm 0.9 -Tunneling Position (O'clock) 12 -Tunneling Distance (cm) 1 -Exudate Amt Small -Exudate Type Serosanguineous -Wound Margin Distinct, Outline Attached -Granulation Amt Small (1-33%) -Granulation Quality Red -Necrosis Amt Small (1-33%) -Necrotic Tissue Type Adherent Slough -Texture (Pao-wound Skin Appearance) Assessed, Scarring -Moisture (Pao-wound Skin Appearance) No Abnormality, Assessed -Color (Pao-wound Skin Appearance) No Abnormality, Assessed -Ulcer Cleansing Rinsed/ Irrigated with Saline -Foul Odor after Cleansing No -Anesthetic Used 5% Lidocaine Gel WC - Nurse 2 - General Ulcer CM Notes Start: 01/21/22 09:05 Freq: Status: Active Protocol: Activity Type Activity Date Activity User E-Sign Co-Sign Detail Recorded Client Recorded Date Recorded By Document 01/21/22 09:21 PL Desktop 01/21/22 09:21 PL 01/21/22 09:21 Wound Center Nurse 2 -Time 09:13 -Correct Patient Yes -Correct Side, Site, Position Yes -Correct Procedure Yes -Procedure Performed Yes -Type of Procedure Debridement -Clinical Debridement Subcutaneous -Tissue Removed Subcutaneous -Post Debridement (cm) - Length 1.1 -Post Debridement (cm) - Width 0.5 -Post Debridement (cm) - Depth 0.1 -Total Square (Post) (cm) 0.55 -Area of Debridement (cm) - Length 1.1 -Area of Debridement (cm) - Width 0.5 -Total Square (Area) (cm) 0.55 -Tunneling Yes -Tunneling Position (O'clock) 12 -Tunneling Distance (cm) 0.7 -Wound/Ulcer Outcome Not Healed -Ulcer Cleansing Rinsed/ Irrigated with Saline -Foul Odor after Cleansing No -Bioengineered Tissue No -Bleeding Controlled with Pressure -Treatment Response Procedure Tolerated Well -Debridement - Subq, 1st 20sq cm Yes Pain Scale: 0-10 Numeric Is Patient Pain Free? Yes - Nurse 3 - General Ulcer D/C NN Start: 01/21/22 09:05 Freq: Status: Active Protocol: Activity Type Activity Date Activity User E-Sign Co-Sign Detail Recorded Client Recorded Date Recorded By Document 01/21/22 09:45 FELECIA [id number] 01/21/22 09:46 FELECIA 01/21/22 09:45 Wound Care Nurse 3 #1- SACRAL -Ulcer Cleansing Rinsed/ Irrigated with Saline -Primary Dressing Applied Aquacel AG 4x4, Mepilex Border -Aquacel AG 4x4 1 -Mepilex Border 1 Pain Scale: 0-10 Numeric Is Patient Pain Free? Yes - Visit Discharge Discharge Condition Stable Ambulatory Status Walker Transportation Private Auto Assessment/Plan Assessment/Plan (1) Stage III pressure ulcer of sacral region: CODE(S): L89.153 - Pressure ulcer of sacral region, stage 3 (2) Type 2 diabetes mellitus with other skin ulcer: CODE(S): E11.622 - Type 2 diabetes mellitus with other skin ulcer; L98.499 - Non-pressure chronic ulcer of skin of other sites with unspecified severity QUALIFIERS: Diabetes mellitus termite renewal inspector insulin use: unspecified assisted insulin use status Qualified Code(s): E11.622 - Type 2 diabetes mellitus with other skin ulcer; L98.499 - Non-pressure chronic ulcer of skin of other sites with unspecified severity (3) Obesity: CODE(S): E66.9 - Obesity, unspecified QUALIFIERS: Obesity type: unspecified obesity type Obesity classification: unspecified obesity classification Serious obesity comorbidity presence: with serious comorbidity Qualified Code(s): E66.9 - Obesity, unspecified PLAN: Debridement performed today in clinic as annotated above. At home wound-care instructions: Continue daily dressing changes with Aquacel Ag, packing dressing into 12:00 tunnel, and covering remainder of wound bed. Cleanse the wound thoroughly with antibacterial soap and water prior to each dressing change, and rinse and dry thoroughly before applying new dressing. Off-loading: The patient was instructed to avoid pressure and friction on the affected areas. Use pillows to offload the sacrum when seated. He has an air mattress for offloading on his bed. Reposition every 2 hours at minimum. Frequent ambulation is encouraged. Diet: Patient encouraged to increase protein intake while taking caution to avoid high carbohydrate and/or sugar intake. Labs/cultures/imaging: -Wound culture from 09/24/2021 was positive for rare Proteus mirabilis, and positive for anaerobic cocci. The patient completed cefdinir 300 mg every 12 hours x10 days. No further cultures collected today due to the absence of clinical signs of infection. -Labs (09/27/2021): CMP: Glucose 319 (H), BUN 60 (H), creatinine 2.3 (H), estimated GFR 30 (L), albumin 2.7 (L) CBCD: RBC 3.40 (L), hemoglobin 9.6 (L), hematocrit 30.2 (L), platelets 118 (L) Hemoglobin A1c: 6.7% CRP: 281.7 (H) Prealbumin: 11 (L) ESR: 77 (H) Follow-up: Return to clinic in 2 weeks for re-evaluation by provider. Return sooner or report to the emergency room should symptoms worsen, or new symptoms arise. Note: [employer] speech recognition billet heater operator software was used to create portions of this document. Sound-alike and misspelled words, as well as other billet heater operator errors may be contained in the documentation.
[2022-02-04 09:09] VITALS: BP 95/37; PULSE 79; TEMP 36.1; BMI 37.8
--- NOTE | 2022-02-04 09:38 | PN.PCM_ITS ---
History of Present Illness Date of Service: 02/04/22 Chief Complaint: Sacral ulcer History of Wound: Ovidio is a pleasant 51-year-old male who presented to the wound healing center on 09/24/2021 for an initial consult of his sacral pressure ulcer. He has a past medical history significant for type 2 diabetes mellitus, hypertension, DOMINGO, congestive heart failure, obesity, gout, osteoarthritis, neuropathy, metabolic encephalopathy, former tobacco use, and COVID-19 pneumonia. He has no known allergies. He developed his sacral ulcer while hospitalized at [facility] for COVID-19 pneumonia in June 2021. On 08/24/2021, he underwent excision and surgical debridement of his infected, unstageable sacral ulcer. A wound VAC was initiated at that time. Following his discharge from the hospital, he has been residing at [facility] in [place], [place]. He has continued to receive wound care using a wound VAC, which was increased to a 150 mmHg negative pressure. His wound VAC has been changed 3 times weekly. He has been tolerating this well, and the wound has been responding well to this treatment. He has been permitted to shower and instructed to cleanse wound with antibacterial soap and water between dressing changes. He sleeps on a bed with an air mattress for offloading. When seated in a chair, he uses pillows for offloading. He is ambulatory with a walker. A wound culture from 09/24/2021 revealed rare Proteus mirabilis and positive anaerobic cocci. Patient completed a course of cefdinir 300 mg every 12 hours x10 days. He denies any recent fever chills or poor appetite. He does note that he has had malodorous drainage from his sacral wound recently. Progress of Wound: The patient's ulcer appears healed today. The patient denies fever, chills, general malaise, or poor appetite. The patient has not had increased redness, swelling, or purulent/malodorous drainage from affected area. Objective Data Objective Data Vital Signs: Vital Signs Temp Pulse Resp BP 96.9 F L 79 18 95/37 L 02/04/22 09:09 02/04/22 09:09 01/14/22 00:21 02/04/22 09:09 Weight: 295 lb Body Mass Index (BMI) 37.8 Charges/Coding Procedures Integumentary [id number]: Other Procedure See Report ([id number] selective debridement) Physical Exam Const alert, no apparent distress and healthy appearing General Appearance: cooperative, comfortable and well kempt Orientation / Consciousness: awake Nutritional Appearance: obese HEENT Head and Scalp: normocephalic and atraumatic Resp normal respiratory effort, normal air movement and no use of accessory muscles Extremity normal capillary refill, no joint enlargement and no clubbing, cyanosis or edema Skin Wounds: wounds noted Wound Narrative: Sacral ulcer appears healed today. There is a moderate amount of old, dry drainage that was removed from the periulcer area area. Psych mental status grossly normal, cooperative and affect normal Debridement Note Debridement Note Wound debrided: Sacral ulcer Laterality: Not Applicable Type of Debridement: Selective debridement Anesthesia Used: 4% Lidocaine Solution Instrument Used: 3mm curette and - (1 mm curette) Tissue Removed: Dried drainage, devitalized tissue Amount of bleeding with debridement: None Patient tolerated procedure: Patient tolerated procedure well Post-Debridement Measurements and Additional Note: Post-Debridement Measurements/Treatment - Nurse 1 - General Ulcer Assessment Start: 01/21/22 09:05 Freq: Status: Active Protocol: CHRISSY Activity Type Activity Date Activity User E-Sign Co-Sign Detail Recorded Client Recorded Date Recorded By Document 01/21/22 09:05 [id number] 01/21/22 09:07 KR Document 02/04/22 09:09 [id number] 02/04/22 09:12 KR 01/21/22 02/04/22 09:05 09:09 - Today's Visit Information Type of service Follow-up Visit Follow-up Visit (Physician/ASSISTANT CONSTRUCTION SUPERINTENDENT (Physician/ASSISTANT CONSTRUCTION SUPERINTENDENT ) ) Arrival Mode Ambulatory, Ambulatory, Walker Walker Patient Identification Verified (Name & Yes Yes ) Patient Requires Transmission-Based No Precautions Safety Precautions NA Height and Weight Body Mass Index (BMI) 37.8 37.8 BMI Classification Obese Obese Vital Signs Temperature (97.8 F-99.1 F) 97.0 F L 96.9 F L Temperature Source Temporal Oral Pulse Rate (60-100) 97 79 Pulse Location Monitor Monitor Blood Pressure (90/60-120/80) 138/44 H 95/37 L Blood Pressure Mean (mm Hg) 75 56 Source Monitor Monitor Position Sitting Blood Pressure Location Left Arm History Since Last Visit- (Skip if this is Patient's initial visit) Have you changed medications since your No No last visit? Any new allergies or adverse reactions No No Had a fall/change in ADL's that may No No increase risk of falls Signs or symptoms of abuse and/or No No neglect since last visit Have you been in the hospital since your No No last visit? Has dressing in place as prescribed Yes Yes Has compression in place as prescribed N/A N/A Has offloadiing in place as prescribed N/A N/A Experienced any changes in pain level or No No management Left Footwear Regular Shoe Regular Shoe Right Footwear Regular Shoe Regular Shoe Pain Scale: 0-10 Numeric Is Patient Pain Free? Yes Yes WC - Nurse 1 - General Ulcer Measurement Start: 01/21/22 09:05 Freq: Status: Active Protocol: Activity Type Activity Date Activity User E-Sign Co-Sign Detail Recorded Client Recorded Date Recorded By Document 01/21/22 09:05 FELECIA [id number] 01/21/22 09:07 KR Document 02/04/22 09:09 KR [id number] 02/04/22 09:12 KR 01/21/22 02/04/22 09:05 09:09 Wound Center Nurse 1 #1- SACRAL -Combined with other wound No -Current Size (cm) - Length 0.9 0.1 -Current Size (cm) - Width 1 0.1 -Current Size (cm) - Depth 0.2 0.1 -Total Square Cm 0.9 0.01 -Photo Taken No -Tunneling No -Tunneling Position (O'clock) 12 -Tunneling Distance (cm) 1 -Undermining/Tunneling No -Circular Undermining No -Exudate Amt Small None Present -Exudate Type Serosanguineous -Wound Margin Distinct, Distinct, Outline Outline Attached Attached -Granulation Amt Small (1-33%) None Present (0 %) -Granulation Quality Red N/A -Slough/Fibrin No -Necrosis Amt Small (1-33%) -Necrotic Tissue Type Adherent Slough -Structure Exposed N/A -Texture (Pao-wound Skin Appearance) Assessed, No Abnormality, Scarring Assessed -Moisture (Pao-wound Skin Appearance) No Abnormality, No Abnormality, Assessed Dry/Scaly -Color (Pao-wound Skin Appearance) No Abnormality, No Abnormality, Assessed Assessed -Temperature (Pao-wound Skin No Abnormality Appearance) (Pt Warm) -Tenderness on Palpation (Pao-wound No Skin Appearance) -Ulcer Cleansing Rinsed/ Rinsed/ Irrigated with Irrigated with Saline Saline -Foul Odor after Cleansing No No -Anesthetic Used 5% Lidocaine 5% Lidocaine Gel Gel LILLIAN - Nurse 2 - General Ulcer CM Notes Start: 01/21/22 09:05 Freq: Status: Active Protocol: Activity Type Activity Date Activity User E-Sign Co-Sign Detail Recorded Client Recorded Date Recorded By Document 01/21/22 09:21 PL Desktop 01/21/22 09:21 PL Document 02/04/22 09:36 PL Desktop 02/04/22 09:37 PL 01/21/22 02/04/22 09:21 09:36 Wound Center Nurse 2 #1- SACRAL -Time 09:13 09:23 -Correct Patient Yes Yes -Correct Side, Site, Position Yes Yes -Correct Procedure Yes Yes -Procedure Performed Yes Yes -Type of Procedure Debridement Debridement -Clinical Debridement Subcutaneous Epidermis / Dermis -Tissue Removed Subcutaneous Epidermis -Post Debridement (cm) - Length 1.1 0.1 -Post Debridement (cm) - Width 0.5 0.1 -Post Debridement (cm) - Depth 0.1 0.1 -Total Square (Post) (cm) 0.55 0.01 -Area of Debridement (cm) - Length 1.1 0.1 -Area of Debridement (cm) - Width 0.5 0.1 -Total Square (Area) (cm) 0.55 0.01 -Tunneling Yes No -Tunneling Position (O'clock) 12 -Tunneling Distance (cm) 0.7 -Undermining/Tunneling No -Circular Undermining No -Wound/Ulcer Outcome Not Healed Healed- Epithelialized -Ulcer Cleansing Rinsed/ Rinsed/ Irrigated with Irrigated with Saline Saline -Foul Odor after Cleansing No No -Bioengineered Tissue No No -Bleeding Controlled with Pressure Pressure -Treatment Response Procedure Procedure Tolerated Well Tolerated Well -Debridement - Open, 1st 20sq cm Yes -Debridement - Subq, 1st 20sq cm Yes Pain Scale: 0-10 Numeric Is Patient Pain Free? Yes Yes LILLIAN - Nurse 3 - General Ulcer D/C NN Start: 01/21/22 09:05 Freq: Status: Active Protocol: Activity Type Activity Date Activity User E-Sign Co-Sign Detail Recorded Client Recorded Date Recorded By Document 01/21/22 09:45 FELECIA [id number] 01/21/22 09:46 FELECIA 01/21/22 09:45 Wound Care Nurse 3 #1- SACRAL -Ulcer Cleansing Rinsed/ Irrigated with Saline -Primary Dressing Applied Aquacel AG 4x4, Mepilex Border -Aquacel AG 4x4 1 -Mepilex Border 1 Pain Scale: 0-10 Numeric Is Patient Pain Free? 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 Selective debridement performed today in clinic to remove old, dried drainage and devitalized tissue, as annotated above. At home wound-care instructions: Cleanse the sacral area with antibacterial soap and water daily, and apply a thin layer of hydrogel dressing daily following cleansing. Keep sacral area open to air. Off-loading: The patient was instructed to avoid pressure and friction on the affected areas. Use pillows to offload the sacrum when seated. He has an air mattress for offloading on his bed. Reposition every 2 hours at minimum. Frequent ambulation is encouraged. Diet: Patient encouraged to increase protein intake while taking caution to avoid high carbohydrate and/or sugar intake. Labs/cultures/imaging: -Wound culture from 09/24/2021 was positive for rare Proteus mirabilis, and positive for anaerobic cocci. The patient completed cefdinir 300 mg every 12 hours x10 days. No further cultures collected today due to the absence of clinical signs of infection. -Labs (09/27/2021): CMP: Glucose 319 (H), BUN 60 (H), creatinine 2.3 (H), estimated GFR 30 (L), albumin 2.7 (L) CBCD: RBC 3.40 (L), hemoglobin 9.6 (L), hematocrit 30.2 (L), platelets 118 (L) Hemoglobin A1c: 6.7% CRP: 281.7 (H) Prealbumin: 11 (L) ESR: 77 (H) Follow-up: Return to clinic in 3 weeks for re-evaluation by provider. Return sooner or report to the emergency room should symptoms worsen, or new symptoms arise. Note: [employer] speech recognition curatorial specialist software was used to create portions of this document. Sound-alike and misspelled words, as well as other curatorial specialist errors may be contained in the documentation.
== END 2022-02-12 23:59 | disposition home or self-care (01) ==
LOC: WC 09:15
PROVIDERS: Visit Provider Nurse Practitioner Family
DX: E11.622 Type 2 diabetes mellitus with other skin ulcer (principal); L89.153 Pressure ulcer of sacral region, stage 3; L98.492 Non-pressure chronic ulcer of skin of other sites with fat layer exposed; L98.491 Non-pressure chronic ulcer of skin of other sites limited to breakdown of skin; I50.9 Heart failure, unspecified; I11.0 Hypertensive heart disease with heart failure; E11.40 Type 2 diabetes mellitus with diabetic neuropathy, unspecified; Z79.4 Long term (current) use of insulin; E66.9 Obesity, unspecified; Z86.16 Personal history of COVID-19; Z68.37 Body mass index [BMI] 37.0-37.9, adult
CPT/HCPCS: 11042; 97597

== ENCOUNTER 2022-03-02 10:15 | Outpatient (RCR) | payer MEDICAID, SELFPAY ==
[2022-02-13 00:21] VITALS: BP 95/37; PULSE 79; RESP 18; TEMP 36.1; BMI 37.8
[2022-02-25 10:27] VITALS: BP 97/40; PULSE 63; TEMP 36.2; BMI 37.8
--- NOTE | 2022-02-25 11:45 | PCM.WC.PN ---
History of Present Illness Date of Service: 02/25/22 Chief Complaint: Sacral ulcer History of Wound: Ovidio is a pleasant 51-year-old male who presented to the wound healing center on 09/24/2021 for an initial consult of his sacral pressure ulcer. He has a past medical history significant for type 2 diabetes mellitus, hypertension, DOMINGO, congestive heart failure, obesity, gout, osteoarthritis, neuropathy, metabolic encephalopathy, former tobacco use, and COVID-19 pneumonia. He has no known allergies. He developed his sacral ulcer while hospitalized at [facility] for COVID-19 pneumonia in June 2021. On 08/24/2021, he underwent excision and surgical debridement of his infected, unstageable sacral ulcer. A wound VAC was initiated at that time. Following his discharge from the hospital, he has been residing at [facility] in [place], [place]. He has continued to receive wound care using a wound VAC, which was increased to a 150 mmHg negative pressure. His wound VAC has been changed 3 times weekly. He has been tolerating this well, and the wound has been responding well to this treatment. He has been permitted to shower and instructed to cleanse wound with antibacterial soap and water between dressing changes. He sleeps on a bed with an air mattress for offloading. When seated in a chair, he uses pillows for offloading. He is ambulatory with a walker. A wound culture from 09/24/2021 revealed rare Proteus mirabilis and positive anaerobic cocci. Patient completed a course of cefdinir 300 mg every 12 hours x10 days. He denies any recent fever chills or poor appetite. He does note that he has had malodorous drainage from his sacral wound recently. Progress of Wound: The patient's sacral ulcer is healed today. Today the patient reports 2 wounds of his right foot, which were not previously reported. He has 1st metatarsal and 5th metatarsal ulcers. He states the first metatarsal ulcer has been present for over a year. The fifth metatarsal ulcer has been present for approximately 1 month. He uses diabetic shoes, but has not been using an offloading shoe of any sort for the duration of these wounds. He states that the nurses at [facility] have been dressing his wounds daily. He is unsure of what type of dressing is being used. Today he has a white dressing (possibly Mesalt) covering his first and fifth metatarsal ulcers, and his foot is wrapped in Kerlix. He has bloody drainage which has seeped through his dressings. He denies any pain due to his neuropathy. The patient denies fever, chills, general malaise, or poor appetite. The patient has not had increased redness, swelling, or purulent/malodorous drainage from affected area. He states at one point he had a venous Doppler to rule out DVT. He denies any other vascular testing. He has not had these wounds cultured, and has not been on antibiotics recently for these wounds. Objective Data Objective Data Vital Signs: Vital Signs Temp Pulse Resp BP 97.2 F L 63 18 97/40 L 02/25/22 10:27 02/25/22 10:27 02/13/22 00:21 02/25/22 10:27 Weight: 295 lb Body Mass Index (BMI) 37.8 Charges/Coding Visit Charges Office Visits / Consults: 19694 OV L4 Est Procedures Integumentary 111xxx-113xx: [id number] Evangelina subq tissue 20 sq cm/< Physical Exam Const alert, no apparent distress and healthy appearing General Appearance: cooperative, comfortable and well kempt Orientation / Consciousness: awake Nutritional Appearance: obese HEENT Head and Scalp: normocephalic and atraumatic Resp normal respiratory effort, normal air movement and no use of accessory muscles Extremity normal capillary refill and no joint enlargement General Extremity: edema right lower extremity trace; Negative for clubbing or cyanosis Peripheral Pulses: Yes dorsalis pedis pulses present right 1+ Skin Wounds: wounds noted Wound Narrative: Sacral ulcer remains healed today. Dry, scaly skin of the sacral region. Right first metatarsal ulcer with subcutaneous layer exposed. No tunneling, undermining, or probing to bone. Large amounts of callus, slough, and devitalized tissue present. Small amount of purulent drainage present. No malodor noted. No periulcer warmth or tenderness to palpation. Right fifth metatarsal ulcer with subcutaneous layer exposed. No tunneling, undermining, or probing to bone. Large amounts of callus, slough, devitalized tissue present. No purulent or malodorous drainage present. No purulence or warmth or tenderness to palpation. Psych mental status grossly normal, cooperative and affect normal Debridement Note Debridement Note Wound debrided: Right first metatarsal Laterality: Right Wound Grade/Stage: Bass 1 Type of Debridement: Excisional debridement Depth: in the subcutaneous layer Percentage of wound debrided: 100 Instrument Used: 5mm curette, #15 blade and Forceps Tissue Removed: Callus, slough, devitalized tissue Severity: Fat Layer Exposed Amount of bleeding with debridement: Moderate Bleeding Controlled with: Pressure Patient tolerated procedure: Patient tolerated procedure well Post-Debridement Measurements and Additional Note: Post-Debridement Measurements/Treatment LILLIAN - Nurse 1 - General Ulcer Assessment Start: 02/25/22 09:42 Freq: Status: Active Protocol: CHRISSY Activity Type Activity Date Activity User E-Sign Co-Sign Detail Recorded Client Recorded Date Recorded By Document 02/25/22 10:27 ASHLEIGH [id number] 02/25/22 10:28 ASHLEIGH 02/25/22 10:27 LILLIAN - Today's Visit Information Type of service Follow-up Visit (Physician/ART SUPERVISOR ) Arrival Mode Ambulatory Patient Identification Verified (Name & Yes ) Patient Requires Transmission-Based No Precautions Height and Weight Body Mass Index (BMI) 37.8 BMI Classification Obese Vital Signs Temperature (97.8 F-99.1 F) 97.2 F L Temperature Source Temporal Pulse Rate (60-100) 63 Pulse Location Monitor Blood Pressure (90/60-120/80) 97/40 L Blood Pressure Mean (mm Hg) 59 Source Monitor History Since Last Visit- (Skip if this is Patient's initial visit) Have you changed medications since your No last visit? Any new allergies or adverse reactions No Had a fall/change in ADL's that may No increase risk of falls Signs or symptoms of abuse and/or No neglect since last visit Have you been in the hospital since your No last visit? Has dressing in place as prescribed Yes Has compression in place as prescribed N/A Has offloadiing in place as prescribed N/A Experienced any changes in pain level or No management Left Footwear Regular Shoe Right Footwear Regular Shoe Pain Scale: 0-10 Numeric Is Patient Pain Free? Yes LILLIAN - Nurse 1 - General Ulcer Measurement Start: 02/25/22 09:42 Freq: Status: Active Protocol: Activity Type Activity Date Activity User E-Sign Co-Sign Detail Recorded Client Recorded Date Recorded By Document 02/25/22 10:03 MEL [id number] 02/25/22 10:09 MEL Edit Result 02/25/22 10:03 JF (1) [id number] 02/25/22 10:37 JF (1) 3-right 5th methead - Current Size (cm) - Length 0.7 => 0.6 - Total Square Cm 1.05 => 0.90 2-right 1st methead - Current Size (cm) - Length 1.5 => 1.4 - Total Square Cm 2.25 => 2.10 02/25/22 10:03 Wound Center Nurse 1 3-right 5th methead -Combined with other wound No -Current Size (cm) - Length 0.6 -Current Size (cm) - Width 1.5 -Current Size (cm) - Depth 0.1 -Total Square Cm 0.90 -Photo Taken Yes -Epithelialization Small 1-33% -Tunneling No -Undermining/Tunneling No -Circular Undermining No -Exudate Amt Small -Exudate Type Serosanguineous -Wound Margin Flat & Intact -Granulation Amt Medium (34-66%) -Granulation Quality Pale -Slough/Fibrin No -Necrosis Amt Small (1-33%) -Necrotic Tissue Type Adherent Slough -Structure Exposed N/A -Texture (Pao-wound Skin Appearance) Assessed,Callus -Moisture (Pao-wound Skin Appearance) Assessed,Dry/ Scaly -Color (Pao-wound Skin Appearance) Assessed -Temperature (Pao-wound Skin No Abnormality Appearance) (Pt Warm) -Tenderness on Palpation (Pao-wound No Skin Appearance) -Foul Odor after Cleansing No 2-right 1st methead -Combined with other wound No -Current Size (cm) - Length 1.4 -Current Size (cm) - Width 1.5 -Current Size (cm) - Depth 0.1 -Total Square Cm 2.10 -Photo Taken Yes -Epithelialization Small 1-33% -Tunneling No -Undermining/Tunneling No -Circular Undermining No -Exudate Amt Small -Exudate Type Serosanguineous -Wound Margin Thickened & Rolled Under -Granulation Amt Medium (34-66%) -Granulation Quality Red -Slough/Fibrin Yes -Necrosis Amt Small (1-33%) -Necrotic Tissue Type Adherent Slough -Structure Exposed N/A -Texture (Pao-wound Skin Appearance) Assessed,Callus -Moisture (Pao-wound Skin Appearance) No Abnormality, Dry/Scaly -Color (Pao-wound Skin Appearance) Assessed -Tenderness on Palpation (Pao-wound No Skin Appearance) -Ulcer Cleansing Rinsed/ Irrigated with Saline -Foul Odor after Cleansing No Lower Limb Edema Present NA WC - Nurse 2 - General Ulcer CM Notes Start: 02/25/22 09:42 Freq: Status: Active Protocol: Activity Type Activity Date Activity User E-Sign Co-Sign Detail Recorded Client Recorded Date Recorded By Document 02/25/22 09:44 [id number] 02/25/22 09:44 Document 02/25/22 10:34 MEL [id number] 02/25/22 10:36 02/25/22 02/25/22 09:44 10:34 Wound Center Nurse 2 3-right 5th methead -Time 10:35 -Correct Patient Yes -Correct Side, Site, Position Yes -Correct Procedure Yes -Procedure Performed Yes -Type of Procedure Debridement -Clinical Debridement Subcutaneous -Tissue Removed Subcutaneous -Post Debridement (cm) - Length 0.7 -Post Debridement (cm) - Width 1.5 -Post Debridement (cm) - Depth 0.1 -Total Square (Post) (cm) 1.05 -Area of Debridement (cm) - Length 0.7 -Area of Debridement (cm) - Width 1.5 -Total Square (Area) (cm) 1.05 -Tunneling No -Undermining/Tunneling No -Circular Undermining No -Wound/Ulcer Outcome Not Healed -Ulcer Cleansing Rinsed/ Irrigated with Saline -Foul Odor after Cleansing No -Bioengineered Tissue No -Bleeding Controlled with Pressure -Treatment Response Procedure Tolerated Well -Offloading No -Debridement - Subq, 1st 20sq cm No 2-right 1st methead -Time 10:35 -Correct Patient Yes -Correct Side, Site, Position Yes -Correct Procedure Yes -Procedure Performed Yes -Type of Procedure Debridement -Clinical Debridement Subcutaneous -Tissue Removed Subcutaneous -Post Debridement (cm) - Length 1.5 -Post Debridement (cm) - Width 1.5 -Post Debridement (cm) - Depth 0.1 -Total Square (Post) (cm) 2.25 -Area of Debridement (cm) - Length 1.5 -Area of Debridement (cm) - Width 1.5 -Total Square (Area) (cm) 2.25 -Tunneling No -Undermining/Tunneling No -Circular Undermining No -Wound/Ulcer Outcome Not Healed -Ulcer Cleansing Rinsed/ Irrigated with Saline -Foul Odor after Cleansing No -Bioengineered Tissue No -Bleeding Controlled with Pressure -Treatment Response Procedure Tolerated Well -Offloading No -Debridement - Subq, 1st 20sq cm Yes #1- SACRAL -Correct Patient No -Correct Side, Site, Position No -Correct Procedure No -Procedure Performed No -Post Debridement (cm) - Length 0 -Post Debridement (cm) - Width 0 -Post Debridement (cm) - Depth 0 -Total Square (Post) (cm) 0 -Area of Debridement (cm) - Length 0 -Area of Debridement (cm) - Width 0 -Total Square (Area) (cm) 0 -Wound/Ulcer Outcome Healed- Epithelialized Pain Scale: 0-10 Numeric Is Patient Pain Free? Yes Yes - Nurse 3 - General Ulcer D/C NN Start: 02/25/22 09:42 Freq: Status: Active Protocol: Activity Type Activity Date Activity User E-Sign Co-Sign Detail Recorded Client Recorded Date Recorded By Document 02/25/22 09:44 [id number] 02/25/22 09:48 Document 02/25/22 10:22 AK [id number] 02/25/22 10:22 AK 02/25/22 02/25/22 09:44 10:22 3-right 5th methead -Ulcer Cleansing Rinsed/ Irrigated with Saline -Foul Odor after Cleansing No -Negative Pressure Wound Therapy N/A -Primary Dressing Applied Aquacel AG 4x4 -Primary Dressing Covered/Secured with Dry Gauze & Roll Gauze, Secured with Tape -Aquacel AG 4x4 1 2-right 1st methead -Ulcer Cleansing Rinsed/ Irrigated with Saline -Foul Odor after Cleansing No -Negative Pressure Wound Therapy N/A -Primary Dressing Applied Aquacel AG 4x4 -Primary Dressing Covered/Secured with Dry Gauze & Roll Gauze, Secured with Tape -Aquacel AG 4x4 0 Wound Care Nurse 3 Pao-Wound Care Ointment Pain Scale: 0-10 Numeric Is Patient Pain Free? Yes Yes - Visit Discharge Discharge Condition Stable Stable Ambulatory Status Steady, Ambulatory, Wheelchair Walker Transportation Private Auto Medication Reconcilliation completed & Yes Yes provided to patient/care provider Clinical Summary of Care Provided Yes Yes Additional Wound Wound debrided: Right fifth metatarsal Laterality: Right Wound Grade/Stage: Bass 1 Type of Debridement: Excisional debridement Depth: in the subcutaneous layer Percentage of wound debrided: 100 Instrument Used: 3mm curette, #15 blade and Forceps Tissue Removed: Callus, Slough and devitalized tissue Severity: Fat Layer Exposed Amount of bleeding with debridement: Moderate Bleeding Controlled with: Pressure Patient tolerated procedure: Patient tolerated procedure well Assessment/Plan Assessment/Plan (1) Ulcer of forefoot due to type 2 diabetes mellitus: CODE(S): E11.621 - Type 2 diabetes mellitus with foot ulcer; L97.509 - Non-pressure chronic ulcer of other part of unspecified foot with unspecified severity (2) Type 2 diabetes mellitus with other skin ulcer: CODE(S): E11.622 - Type 2 diabetes mellitus with other skin ulcer; L98.499 - Non-pressure chronic ulcer of skin of other sites with unspecified severity QUALIFIERS: Diabetes mellitus care home insulin use: unspecified care home insulin use status Qualified Code(s): E11.622 - Type 2 diabetes mellitus with other skin ulcer; L98.499 - Non-pressure chronic ulcer of skin of other sites with unspecified severity (3) Stage III pressure ulcer of sacral region: CODE(S): L89.153 - Pressure ulcer of sacral region, stage 3 (4) Diabetic neuropathy associated with type 2 diabetes mellitus: CODE(S): E11.40 - Type 2 diabetes mellitus with diabetic neuropathy, unspecified QUALIFIERS: Diabetes mellitus complication detail: diabetic polyneuropathy Qualified Code(s): E11.42 - Type 2 diabetes mellitus with diabetic polyneuropathy PLAN: The patient's sacral ulcer is healed today. He does have dry skin of the sacral region. I will have him apply A&D ointment once daily for the next week. He reports 2 additional wounds today, affecting the right foot. Debridement of the patient's right first metatarsal and right fifth metatarsal ulcers performed today in clinic as annotated above. Aquacel Ag applied. I will have him follow with Dr. Bowen for further management of his foot ulcers. At home wound-care instructions: Change Aquacel Ag dressing once daily or more frequently as needed due to contamination. Wash foot ulcers daily with antibacterial soap and water, rinse and dry thoroughly before each dressing change. Compression: None ordered today; will await vascular studies Off-loading: The patient was instructed to avoid pressure and friction on the affected areas. Avoid prolonged standing, ambulation, and/or dangling of legs. When seated, feet should be elevated at chest level. He will need offloading, and I am hopeful the patient will be able to tolerate a TCC. Diet: Patient encouraged to increase protein intake while taking caution to avoid high carbohydrate and/or sugar intake. Labs/cultures/imaging: Cultures ordered and collected today from both right foot ulcers. Routine lab work ordered (CBC-D, CMP, ESR, CRP, prealbumin). Venous and arterial studies ordered today. Right foot x-ray ordered. Follow-up: Return to clinic next week for re-evaluation with Dr. Bowen. Return sooner or report to the emergency room should symptoms worsen, or new symptoms arise. Note: [employer] speech recognition coding technician software was used to create portions of this document. Sound-alike and misspelled words, as well as other coding technician errors may be contained in the documentation.
--- NOTE | 2022-03-02 10:59 | PCM.WC.PN ---
History of Present Illness Date of Service: 03/02/22 Chief Complaint: Right foot ulcers History of Wound: Ovidio is a pleasant 51-year-old male with significant past medical history of type 2 diabetes mellitus (A1C 6.7%), hypertension, DOMINGO, congestive heart failure, obesity, gout, osteoarthritis, neuropathy, metabolic encephalopathy, former tobacco use, and COVID-19 pneumonia. He recently healed a sacral ulcer and mentioned that he had right foot ulcers. The ulcer near the great toe has been intermittently open for 1 year and the ulcer near the fifth toe ball of the foot has been open for approximately 1 month. He has not been actively treating these. He continues to walk and he is in his extra-depth diabetic shoe. He is residing in a [place] [facility] in which they help with dressing and hygiene care. He recently had a foot x-ray, labs, and noninvasive vascular arterial Doppler performed. He does report claudication after walking 150 feet to the right lower extremity. He also has neuropathy with loss of sensation and rest paresthesias consistent with neuropathy status. It is noted he had a prior left transmetatarsal amputation. He denies current fever, chill, nausea, vomiting, odor or redness of the foot. Progress of Wound: Stable right foot ulcers x2 Objective Data Objective Data Vital Signs: Vital Signs Temp Pulse Resp BP 97.2 F L 63 18 97/40 L 02/25/22 10:27 02/25/22 10:27 02/13/22 00:21 02/25/22 10:27 Weight: 133.81 kg Body Mass Index (BMI) 37.8 Lab / Micro Data Micro: Microbiology 02/25/22 11:05 Wound Abcess - Other Gram Stain - Final 02/25/22 11:05 Wound Abcess - Other Wound Culture - Final Proteus mirabilis Streptococcus group G Meth. resistant Staph. aureus 02/25/22 11:05 Wound Abcess - Other Anaerobic Culture - Final Anaerobic cocci 02/25/22 11:07 Wound Abcess - Other Gram Stain - Final 02/25/22 11:07 Wound Abcess - Other Wound Culture - Final Meth. resistant Staph. aureus Streptococcus group G 02/25/22 11:07 Wound Abcess - Other Anaerobic Culture - Final Anaerobic cocci Physical Exam Const alert and oriented x3 General Appearance: cooperative HEENT normocephalic Extremity Extremity Narrative: No calf tenderness Diminished pulses Muscle wasting noted Compartments are soft to palpate bilateral lower extremities Left transmetatarsal amputation without ulcer Dorsal contraction of lesser toes with prominent metatarsal heads (all) General Extremity: edema and no tenderness to palpation of joints or extremities; Negative for cyanosis Skin Skin Narrative: no purulence, no streaking, no odor, no infection. Skin discontinuity some first and some fifth metatarsal head with granular base and peripheral callus. No deep probing. Mild pao ulcer inflammation without streaking odor or redness. No bogginess or fluctuance on palpation General Skin Exam: Negative for erythema Neuro Neuro Narrative: lack of normal epicritic sensation via light touch is consistent with neuropathy status Psych cooperative and affect normal Debridement Note Debridement Note Wound debrided: right sub 1 and 5 metatarsal head Wound Grade/Stage: 1 Type of Debridement: Excisional debridement Anesthesia Used: 4% Lidocaine Solution Depth: in the subcutaneous layer Percentage of wound debrided: 100 Instrument Used: #15 blade Tissue Removed: fibrous, devitalized subcutaneous, biofilm, slough Severity: Fat Layer Exposed Amount of bleeding with debridement: Mild Bleeding Controlled with: Pressure Patient tolerated procedure: Patient tolerated procedure well Post-Debridement Measurements and Additional Note: Post-Debridement Measurements/Treatment - Nurse 1 - General Ulcer Assessment Start: 02/25/22 09:42 Freq: Status: Active Protocol: CHRISSY Activity Type Activity Date Activity User E-Sign Co-Sign Detail Recorded Client Recorded Date Recorded By Document 02/25/22 10:27 ASHLEIGH [id number] 02/25/22 10:28 ASHLEIGH 02/25/22 10:27 - Today's Visit Information Type of service Follow-up Visit (Physician/[employer] ) Arrival Mode Ambulatory Patient Identification Verified (Name & Yes ) Patient Requires Transmission-Based No Precautions Height and Weight Body Mass Index (BMI) 37.8 BMI Classification Obese Vital Signs Temperature (97.8 F-99.1 F) 97.2 F L Temperature Source Temporal Pulse Rate (60-100) 63 Pulse Location Monitor Blood Pressure (90/60-120/80) 97/40 L Blood Pressure Mean (mm Hg) 59 Source Monitor History Since Last Visit- (Skip if this is Patient's initial visit) Have you changed medications since your No last visit? Any new allergies or adverse reactions No Had a fall/change in ADL's that may No increase risk of falls Signs or symptoms of abuse and/or No neglect since last visit Have you been in the hospital since your No last visit? Has dressing in place as prescribed Yes Has compression in place as prescribed N/A Has offloadiing in place as prescribed N/A Experienced any changes in pain level or No management Left Footwear Regular Shoe Right Footwear Regular Shoe Pain Scale: 0-10 Numeric Is Patient Pain Free? Yes WC - Nurse 1 - General Ulcer Measurement Start: 02/25/22 09:42 Freq: Status: Active Protocol: Activity Type Activity Date Activity User E-Sign Co-Sign Detail Recorded Client Recorded Date Recorded By Document 02/25/22 10:03 MEL [id number] 02/25/22 10:09 MEL Edit Result 02/25/22 10:03 JF (1) [id number] 02/25/22 10:37 JF (1) 3-right 5th methead - Current Size (cm) - Length 0.7 => 0.6 - Total Square Cm 1.05 => 0.90 2-right 1st methead - Current Size (cm) - Length 1.5 => 1.4 - Total Square Cm 2.25 => 2.10 02/25/22 10:03 Wound Center Nurse 1 3-right 5th methead -Combined with other wound No -Current Size (cm) - Length 0.6 -Current Size (cm) - Width 1.5 -Current Size (cm) - Depth 0.1 -Total Square Cm 0.90 -Photo Taken Yes -Epithelialization Small 1-33% -Tunneling No -Undermining/Tunneling No -Circular Undermining No -Exudate Amt Small -Exudate Type Serosanguineous -Wound Margin Flat & Intact -Granulation Amt Medium (34-66%) -Granulation Quality Pale -Slough/Fibrin No -Necrosis Amt Small (1-33%) -Necrotic Tissue Type Adherent Slough -Structure Exposed N/A -Texture (Pao-wound Skin Appearance) Assessed,Callus -Moisture (Pao-wound Skin Appearance) Assessed,Dry/ Scaly -Color (Pao-wound Skin Appearance) Assessed -Temperature (Pao-wound Skin No Abnormality Appearance) (Pt Warm) -Tenderness on Palpation (Pao-wound No Skin Appearance) -Foul Odor after Cleansing No 2-right 1st methead -Combined with other wound No -Current Size (cm) - Length 1.4 -Current Size (cm) - Width 1.5 -Current Size (cm) - Depth 0.1 -Total Square Cm 2.10 -Photo Taken Yes -Epithelialization Small 1-33% -Tunneling No -Undermining/Tunneling No -Circular Undermining No -Exudate Amt Small -Exudate Type Serosanguineous -Wound Margin Thickened & Rolled Under -Granulation Amt Medium (34-66%) -Granulation Quality Red -Slough/Fibrin Yes -Necrosis Amt Small (1-33%) -Necrotic Tissue Type Adherent Slough -Structure Exposed N/A -Texture (Pao-wound Skin Appearance) Assessed,Callus -Moisture (Pao-wound Skin Appearance) No Abnormality, Dry/Scaly -Color (Pao-wound Skin Appearance) Assessed -Tenderness on Palpation (Pao-wound No Skin Appearance) -Ulcer Cleansing Rinsed/ Irrigated with Saline -Foul Odor after Cleansing No Lower Limb Edema Present NA WC - Nurse 2 - General Ulcer CM Notes Start: 02/25/22 09:42 Freq: Status: Active Protocol: Activity Type Activity Date Activity User E-Sign Co-Sign Detail Recorded Client Recorded Date Recorded By Document 02/25/22 09:44 [id number] 02/25/22 09:44 Document 02/25/22 10:34 [id number] 02/25/22 10:36 Document 03/02/22 10:37 [id number] 03/02/22 10:39 Edit Result 03/02/22 10:37 (1) [id number] 03/02/22 10:40 (1) 2-right 1st methead - Offloading No => Yes - Type of Offloading => Surgical Shoe 02/25/22 02/25/22 03/02/22 09:44 10:34 10:37 Wound Center Nurse 2 3-right 5th methead -Time 10:35 10:37 -Correct Patient Yes Yes -Correct Side, Site, Position Yes Yes -Correct Procedure Yes Yes -Procedure Performed Yes Yes -Type of Procedure Debridement Debridement -Clinical Debridement Subcutaneous Subcutaneous -Tissue Removed Subcutaneous Subcutaneous -Post Debridement (cm) - Length 0.7 0.5 -Post Debridement (cm) - Width 1.5 0.6 -Post Debridement (cm) - Depth 0.1 0.2 -Total Square (Post) (cm) 1.05 0.30 -Area of Debridement (cm) - Length 0.7 0.5 -Area of Debridement (cm) - Width 1.5 0.6 -Total Square (Area) (cm) 1.05 0.30 -Tunneling No No -Undermining/Tunneling No No -Circular Undermining No No -Wound/Ulcer Outcome Not Healed Not Healed -Ulcer Cleansing Rinsed/ Rinsed/ Irrigated with Irrigated with Saline Saline -Foul Odor after Cleansing No No -Bioengineered Tissue No No -Bleeding Controlled with Pressure Pressure -Treatment Response Procedure Procedure Tolerated Well Tolerated Well -Offloading No Yes -Type of Offloading Surgical Shoe -Debridement - Subq, 1st 20sq cm No Yes 2-right 1st methead -Time 10:35 10:37 -Correct Patient Yes Yes -Correct Side, Site, Position Yes Yes -Correct Procedure Yes Yes -Procedure Performed Yes Yes -Type of Procedure Debridement Debridement -Clinical Debridement Subcutaneous Subcutaneous -Tissue Removed Subcutaneous Subcutaneous -Post Debridement (cm) - Length 1.5 1.4 -Post Debridement (cm) - Width 1.5 0.9 -Post Debridement (cm) - Depth 0.1 0.1 -Total Square (Post) (cm) 2.25 1.26 -Area of Debridement (cm) - Length 1.5 1.4 -Area of Debridement (cm) - Width 1.5 0.9 -Total Square (Area) (cm) 2.25 1.26 -Tunneling No No -Undermining/Tunneling No No -Circular Undermining No No -Wound/Ulcer Outcome Not Healed Not Healed -Ulcer Cleansing Rinsed/ Rinsed/ Irrigated with Irrigated with Saline Saline -Foul Odor after Cleansing No No -Bioengineered Tissue No No -Bleeding Controlled with Pressure Pressure -Treatment Response Procedure Procedure Tolerated Well Tolerated Well -Offloading No Yes -Type of Offloading Surgical Shoe -Debridement - Subq, 1st 20sq cm Yes No #1- SACRAL -Correct Patient No -Correct Side, Site, Position No -Correct Procedure No -Procedure Performed No -Post Debridement (cm) - Length 0 -Post Debridement (cm) - Width 0 -Post Debridement (cm) - Depth 0 -Total Square (Post) (cm) 0 -Area of Debridement (cm) - Length 0 -Area of Debridement (cm) - Width 0 -Total Square (Area) (cm) 0 -Wound/Ulcer Outcome Healed- Epithelialized Pain Scale: 0-10 Numeric Is Patient Pain Free? Yes Yes Yes - Nurse 3 - General Ulcer D/C NN Start: 02/25/22 09:42 Freq: Status: Active Protocol: Activity Type Activity Date Activity User E-Sign Co-Sign Detail Recorded Client Recorded Date Recorded By Document 02/25/22 09:44 [id number] 02/25/22 09:48 Document 02/25/22 10:22 AK [id number] 02/25/22 10:22 AK Document 03/02/22 10:55 JF [id number] 03/02/22 10:55 02/25/22 02/25/22 03/02/22 09:44 10:22 10:55 3-right 5th methead -Ulcer Cleansing Rinsed/ Rinsed/ Irrigated with Irrigated with Saline Saline -Foul Odor after Cleansing No No -Negative Pressure Wound Therapy N/A -Primary Dressing Applied Aquacel AG 4x4 Aquacel AG 2x2 -Primary Dressing Covered/Secured with Dry Gauze & Dry Gauze & Roll Gauze, Roll Gauze Secured with Tape -Aquacel AG 4x4 1 -Aquacel AG 2x2 1 2-right 1st methead -Ulcer Cleansing Rinsed/ Rinsed/ Irrigated with Irrigated with Saline Saline -Foul Odor after Cleansing No No -Negative Pressure Wound Therapy N/A -Primary Dressing Applied Aquacel AG 4x4 Aquacel AG 2x2 -Primary Dressing Covered/Secured with Dry Gauze & Dry Gauze & Roll Gauze, Roll Gauze, Secured with Secured with Tape Tape -Aquacel AG 4x4 0 -Aquacel AG 2x2 0 Wound Care Nurse 3 Pao-Wound Care Ointment Pain Scale: 0-10 Numeric Is Patient Pain Free? Yes Yes Yes - Visit Discharge Discharge Condition Stable Stable Stable Ambulatory Status Steady, Ambulatory, Ambulatory, Wheelchair Walker Walker Transportation Private Auto Private Auto Medication Reconcilliation completed & Yes Yes Yes provided to patient/care provider Clinical Summary of Care Provided Yes Yes Yes Assessment/Plan Assessment/Plan (1) Chronic ulcer of right foot with fat layer exposed: CODE(S): L97.512 - Non-pressure chronic ulcer of other part of right foot with fat layer exposed (2) Type 2 diabetes mellitus with diabetic polyneuropathy: CODE(S): E11.42 - Type 2 diabetes mellitus with diabetic polyneuropathy (3) Other specified peripheral vascular diseases: CODE(S): I73.89 - Other specified peripheral vascular diseases (4) Claudication: CODE(S): I73.9 - Peripheral vascular disease, unspecified PLAN: I reviewed and discussed his case today. Debridement was performed today as noted in the clinical panel to all of the ulcer sites. The following work up and care recommendations were made: Dressing: Aquacel Ag Wash: Soap and water. To avoid soaking Offload: Heel weight-bear with surgical shoe which was fitted and dispensed today with dual density offloading Plastizote liner cut out. A total contact cast would be great as long as I can sure he has adequate blood flow for healing. To use walker. He resides in a [place] [facility] facility and should be able to stay off of his foot. Vascular: His noninvasive vascular studies were reviewed with some monophasic waveforms of the right lower extremity. Vascular surgery referral was provided. He does not appear to have clinical signs of critical limb ischemia. Edema: To elevate Infection: It is noted that he has been treated with oral antibiotics for cellulitis per culture results. He is currently on oral doxycycline and Augmentin. To complete this course. To monitor for worsening local signs of infection or development of systemic infection. Pain: Controlled due to his neuropathy status Host factors: His medical comorbidities are noted. His A1c is 6.7%. I recommend nutritional supplementation, Per. He already had an amputation of the left lower extremity and understands he is at risk for further limb loss. Diagnostic data: Labs reviewed for home 02-28-2022 with GFR 58, albumin 3.0, white blood cell count 8.4, A1c 6.7%, C-reactive protein 29.8, prealbumin 20, sed rate 74. Additional x-ray of the foot from 02-28-2022 noted degenerative changes with no other findings indicating osteomyelitis. The imaging study including the CD were requested. I answered all the patient's questions. To return to the wound healing center in 1 week or call sooner if the patient has any questions or concerns. Note: [employer] speech recognition bucket turner software was used to create portions of this document. Sound-alike and misspelled words, as well as other bucket turner errors may be contained in the documentation. The medical decision making level is moderate based on data including at least three of the following: review of prior external notes, review of a test, ordering a test, assessment requiring an independent historian. The medical decision making level is moderate. There is noted moderate risk of morbidity after considering this treatment plan and diagnostic data. Considerations were given to prescription management, decisions regarding surgical options, or social determinants of health.
[2022-03-02 11:46] VITALS: BP 161/73; PULSE 87; RESP 16; TEMP 36.1; BMI 37.8
== END 2022-03-15 23:59 | disposition home or self-care (01) ==
LOC: WC 10:15
PROVIDERS: Visit Provider Podiatrist
DX: E11.621 Type 2 diabetes mellitus with foot ulcer (principal); L89.153 Pressure ulcer of sacral region, stage 3; E11.51 Type 2 diabetes mellitus with diabetic peripheral angiopathy without gangrene; L97.512 Non-pressure chronic ulcer of other part of right foot with fat layer exposed; L98.491 Non-pressure chronic ulcer of skin of other sites limited to breakdown of skin; I11.0 Hypertensive heart disease with heart failure; I50.9 Heart failure, unspecified; E11.42 Type 2 diabetes mellitus with diabetic polyneuropathy; Z79.4 Long term (current) use of insulin; Z86.16 Personal history of COVID-19; Z87.891 Personal history of nicotine dependence
CPT/HCPCS: 11042; 87070; 87075; 87077; 87186; 87205

== ENCOUNTER 2022-04-06 11:30 | Outpatient (RCR) | payer MEDICAID, SELFPAY ==
[2022-03-16 00:35] VITALS: BP 161/73; PULSE 87; RESP 16; TEMP 36.1; BMI 37.8
--- NOTE | 2022-03-16 08:29 | WC ---
Saige from [facility] called stating the home is not able to use Aquacel-Ag since its on backorder till 03/23 and would like to know if calcium alginate with no AG is okay to use until Ag is available. Spoke to Dr Bowen and she states that is fine. Left message with Saige at [phone] ext [phone].
[2022-03-23 10:33] VITALS: BP 135/68; PULSE 95; RESP 18; TEMP 36.1; BMI 37.8
--- NOTE | 2022-03-23 11:57 | PN.PCM_ITS ---
History of Present Illness Date of Service: 03/23/22 Chief Complaint: Right foot ulcers History of Wound: Ovidio is a pleasant 51-year-old male with significant past medical history of type 2 diabetes mellitus (A1C 6.7%), hypertension, DOMINGO, congestive heart failure, obesity, gout, osteoarthritis, neuropathy, metabolic encephalopathy, former tobacco use, and COVID-19 pneumonia. He recently healed a sacral ulcer and mentioned that he had right foot ulcers. He also has neuropathy with loss of sensation and rest paresthesias consistent with neuropathy status. It is noted he had a prior left transmetatarsal amputation. He denies current fever, chill, nausea, vomiting, odor or redness of the foot. He is scheduled to see vascular surgeon next week. Progress of Wound: healed sub fifth metatarsal head improving sub 1st metatarsal head Objective Data Objective Data Vital Signs: Vital Signs Temp Pulse Resp BP 96.9 F L 95 18 135/68 H 03/23/22 10:33 03/23/22 10:33 03/23/22 10:33 03/23/22 10:33 Weight: 133.81 kg Body Mass Index (BMI) 37.8 Physical Exam Const alert and oriented x3 General Appearance: cooperative HEENT normocephalic Extremity Extremity Narrative: No calf tenderness Diminished pulses Muscle wasting noted Compartments are soft to palpate bilateral lower extremities Left transmetatarsal amputation without ulcer Dorsal contraction of lesser toes with prominent metatarsal heads (all) General Extremity: edema and no tenderness to palpation of joints or extremities; Negative for cyanosis Skin Skin Narrative: no purulence, no streaking, no odor, no infection. Skin discontinuity sub first metatarsal head with granular base and peripheral callus. No deep probing. Mild pao ulcer inflammation without streaking odor or redness. No bogginess or fluctuance on palpation healed sub fifth metatarsal head ulcer site; full epithelialization General Skin Exam: Negative for erythema Neuro Neuro Narrative: lack of normal epicritic sensation via light touch is consistent with neuropathy status Psych cooperative and affect normal Debridement Note Debridement Note Wound debrided: right sub 1st metatarsal head Wound Grade/Stage: 1 Type of Debridement: Excisional debridement Anesthesia Used: 4% Lidocaine Solution Depth: in the subcutaneous layer Percentage of wound debrided: 100 Instrument Used: #15 blade Tissue Removed: fibrous, devitalized subcutaneous, biofilm, slough Severity: Fat Layer Exposed Amount of bleeding with debridement: Mild Bleeding Controlled with: Pressure Patient tolerated procedure: Patient tolerated procedure well Post-Debridement Measurements and Additional Note: Post-Debridement Measurements/Treatment WC - Nurse 1 - General Ulcer Assessment Start: 03/23/22 10:33 Freq: Status: Active Protocol: CHRISSY Activity Type Activity Date Activity User E-Sign Co-Sign Detail Recorded Client Recorded Date Recorded By Document 03/23/22 10:33 ML [id number] 03/23/22 10:41 ML 03/23/22 10:33 WC - Today's Visit Information Type of service Follow-up Visit (Physician/[employer] ) Arrival Mode Walker Transfer Assistance None Patient Identification Verified (Name & Yes ) Patient Requires Transmission-Based No Precautions Safety Precautions NA Finger Stick Blood Sugar(mg/dl) (if 189 indicated): Blood Sugar Stated by Patient Height and Weight Body Mass Index (BMI) 37.8 BMI Classification Obese Vital Signs Temperature (97.8 F-99.1 F) 96.9 F L Temperature Source Temporal Pulse Rate (60-100) 95 Pulse Location Monitor Respiratory Rate (12-18) 18 Respiratory rate source Observation Blood Pressure (90/60-120/80) 135/68 H Blood Pressure Mean (mm Hg) 90 Source Monitor Position Sitting Blood Pressure Location Left Arm History Since Last Visit- (Skip if this is Patient's initial visit) Have you changed medications since your No last visit? Any new allergies or adverse reactions No Had a fall/change in ADL's that may No increase risk of falls Signs or symptoms of abuse and/or No neglect since last visit Have you been in the hospital since your No last visit? Has dressing in place as prescribed No Has compression in place as prescribed Yes Has offloadiing in place as prescribed Yes Experienced any changes in pain level or No management Left Footwear Regular Shoe Right Footwear Surgical Shoe with pressure relief insole Pain Scale: 0-10 Numeric Is Patient Pain Free? Yes - Nurse 1 - General Ulcer Measurement Start: 03/23/22 10:33 Freq: Status: Active Protocol: Activity Type Activity Date Activity User E-Sign Co-Sign Detail Recorded Client Recorded Date Recorded By Document 03/23/22 10:33 ML [id number] 03/23/22 10:41 ML 03/23/22 10:33 Wound Center Nurse 1 3-right 5th methead -Current Size (cm) - Length 1 -Current Size (cm) - Width 1 -Current Size (cm) - Depth 0.1 -Total Square Cm 1 -Exudate Amt Medium -Exudate Type Serous -Wound Margin Distinct, Outline Attached -Granulation Amt Medium (34-66%) -Necrosis Amt Medium (34-66%) -Necrotic Tissue Type Adherent Slough -Texture (Pao-wound Skin Appearance) Assessed -Moisture (Pao-wound Skin Appearance) Assessed -Color (Pao-wound Skin Appearance) Assessed -Temperature (Pao-wound Skin No Abnormality Appearance) (Pt Warm) -Ulcer Cleansing Rinsed/ Irrigated with Saline -Foul Odor after Cleansing No -Anesthetic Used 5% Lidocaine Gel 2-right 1st methead -Current Size (cm) - Length 0.1 -Current Size (cm) - Width 0.1 -Current Size (cm) - Depth 0.1 -Total Square Cm 0.01 -Exudate Amt Small -Exudate Type Serosanguineous -Wound Margin Distinct, Outline Attached -Necrosis Amt Small (1-33%) -Necrotic Tissue Type Adherent Slough -Texture (Pao-wound Skin Appearance) Assessed -Moisture (Pao-wound Skin Appearance) Assessed -Color (Pao-wound Skin Appearance) Assessed -Temperature (Pao-wound Skin No Abnormality Appearance) (Pt Warm) -Tenderness on Palpation (Pao-wound Yes Skin Appearance) -Ulcer Cleansing Rinsed/ Irrigated with Saline -Foul Odor after Cleansing No -Anesthetic Used 5% Lidocaine Gel WC - Nurse 2 - General Ulcer CM Notes Start: 03/23/22 10:33 Freq: Status: Active Protocol: Activity Type Activity Date Activity User E-Sign Co-Sign Detail Recorded Client Recorded Date Recorded By Document 03/23/22 10:54 MEL [id number] 03/23/22 10:57 MEL 03/23/22 10:54 Wound Center Nurse 2 3-right 5th methead -Correct Patient No -Correct Side, Site, Position No -Correct Procedure No -Procedure Performed No -Post Debridement (cm) - Length 0 -Post Debridement (cm) - Width 0 -Post Debridement (cm) - Depth 0 -Total Square (Post) (cm) 0 -Area of Debridement (cm) - Length 0 -Area of Debridement (cm) - Width 0 -Total Square (Area) (cm) 0 -Wound/Ulcer Outcome Healed- Epithelialized 2-right 1st methead -Time 10:55 -Correct Patient Yes -Correct Side, Site, Position Yes -Correct Procedure Yes -Procedure Performed Yes -Type of Procedure Debridement -Clinical Debridement Subcutaneous -Tissue Removed Subcutaneous -Post Debridement (cm) - Length 0.9 -Post Debridement (cm) - Width 1.0 -Post Debridement (cm) - Depth 0.1 -Total Square (Post) (cm) 0.90 -Area of Debridement (cm) - Length 0.9 -Area of Debridement (cm) - Width 1.0 -Total Square (Area) (cm) 0.90 -Tunneling No -Undermining/Tunneling No -Circular Undermining No -Wound/Ulcer Outcome Not Healed -Ulcer Cleansing Rinsed/ Irrigated with Saline -Foul Odor after Cleansing No -Bioengineered Tissue No -Bleeding Controlled with Pressure -Treatment Response Procedure Tolerated Well -Offloading Yes -Type of Offloading Surgical Shoe -Assistive Device(s) Walker -Debridement - Subq, 1st 20sq cm Yes Pain Scale: 0-10 Numeric Is Patient Pain Free? Yes - Nurse 3 - General Ulcer D/C NN Start: 03/23/22 10:33 Freq: Status: Active Protocol: Activity Type Activity Date Activity User E-Sign Co-Sign Detail Recorded Client Recorded Date Recorded By Document 03/23/22 11:12 DL [id number] 03/23/22 11:13 DL 03/23/22 11:12 Wound Care Nurse 3 2-right 1st methead -Ulcer Cleansing Rinsed/ Irrigated with Saline -Foul Odor after Cleansing No -Primary Dressing Applied Aquacel AG 2x2 -Primary Dressing Covered/Secured with Dry Gauze & Roll Gauze, Secured with Tape -Aquacel AG 2x2 1 Treatment Response Procedure Tolerated Well Pain Scale: 0-10 Numeric Is Patient Pain Free? Yes - Visit Discharge Discharge Condition Stable Ambulatory Status Ambulatory, Walker Transportation Private Auto Facility Type Care Home Care Facility Orders Sent Yes Assessment/Plan Assessment/Plan (1) Chronic ulcer of right foot with fat layer exposed: CODE(S): L97.512 - Non-pressure chronic ulcer of other part of right foot with fat layer exposed (2) Type 2 diabetes mellitus with diabetic polyneuropathy: CODE(S): E11.42 - Type 2 diabetes mellitus with diabetic polyneuropathy (3) Other specified peripheral vascular diseases: CODE(S): I73.89 - Other specified peripheral vascular diseases (4) Claudication: CODE(S): I73.9 - Peripheral vascular disease, unspecified PLAN: I reviewed and discussed his case today. Debridement was performed today as noted in the clinical panel to all of the ulcer sites. The following work up and care recommendations were made: Dressing: Aquacel Ag Wash: Soap and water. To avoid soaking Offload: Heel weight-bear with surgical shoe which was fitted and dispensed today with dual density offloading Plastizote liner cut out. A total contact cast would be great as long as I can sure he has adequate blood flow for healing. in the meantime I also advised that a cam walker would offload this site even better and a prescription was provided. To use walker. He resides in a [facility] facility and should be able to stay off of his foot. Vascular: His noninvasive vascular studies were reviewed with some monophasic waveforms of the right lower extremity. Vascular surgery referral was provided. He does not appear to have clinical signs of critical limb ischemia. He is scheduled to see dr. moreira next week. Edema: To elevate Infection: It is noted that he has been treated with oral antibiotics for cellulitis per culture results. He is currently on oral doxycycline and Augmentin. To complete this course. To monitor for worsening local signs of infection or development of systemic infection. Pain: Controlled due to his neuropathy status Host factors: His medical comorbidities are noted. His A1c is 6.7%. I recommend nutritional supplementation, Per. He already had an amputation of the left lower extremity and understands he is at risk for further limb loss. Diagnostic data: Labs reviewed for home 02-28-2022 with GFR 58, albumin 3.0, white blood cell count 8.4, A1c 6.7%, C-reactive protein 29.8, prealbumin 20, sed rate 74. Additional x-ray of the foot from 02-28-2022 noted degenerative changes with no other findings indicating osteomyelitis. The imaging study including the CD were requested. I answered all the patient's questions. To return to the wound healing center in 1 week or call sooner if the patient has any questions or concerns. Note: [employer] speech recognition political science professor software was used to create portions of this document. Sound-alike and misspelled words, as well as other political science professor errors may be contained in the documentation. The medical decision making level is low. There is noted low risk of morbidity after considering this treatment plan and diagnostic data. The problems addressed require a low medical decision making level which includes two or more minor problems, a stable chronic illness, or an acute uncomplicated illness or injury.
[2022-03-30 10:46] VITALS: BP 115/48; PULSE 88; RESP 18; TEMP 36.2; BMI 37.8
--- NOTE | 2022-03-30 11:34 | PN.PCM_ITS ---
History of Present Illness Date of Service: 03/30/22 Chief Complaint: Right foot ulcers History of Wound: Ovidio is a pleasant 51-year-old male with significant past medical history of type 2 diabetes mellitus (A1C 6.7%), hypertension, DOMINGO, congestive heart failure, obesity, gout, osteoarthritis, neuropathy, metabolic encephalopathy, former tobacco use, and COVID-19 pneumonia. He recently healed a sacral ulcer and mentioned that he had right foot ulcers. He also has neuropathy with loss of sensation and rest paresthesias consistent with neuropathy status. It is noted he had a prior left transmetatarsal amputation. He denies current fever, chill, nausea, vomiting, odor or redness of the foot. He is scheduled to see vascular surgeon next monday and has vascular testing prior to that on Monday. He got an updated cam walker boot and brought that in for evaluation potential modification today. He is frustrated with his inability to move due to his diabetes and weight status. He is walking with a physical therapist and uses a walker. He is amendable to gain education on nutrition that can help with all of his medical comorbidities and to prevent future ulcers and amputations. Progress of Wound: improving sub 1st metatarsal head Objective Data Objective Data Vital Signs: Vital Signs Temp Pulse Resp BP 97.2 F L 88 18 115/48 L 03/30/22 10:46 03/30/22 10:46 03/30/22 10:46 03/30/22 10:46 Weight: 133.81 kg Body Mass Index (BMI) 37.8 Physical Exam Const alert and oriented x3 General Appearance: cooperative HEENT normocephalic Extremity Extremity Narrative: No calf tenderness Diminished pulses Muscle wasting noted Compartments are soft to palpate bilateral lower extremities Left transmetatarsal amputation without ulcer Dorsal contraction of lesser toes with prominent metatarsal heads (all) General Extremity: edema and no tenderness to palpation of joints or extremities; Negative for cyanosis Skin Skin Narrative: no purulence, no streaking, no odor, no infection. Skin discontinuity sub first metatarsal head with granular base and peripheral callus. No deep probing. Mild pao ulcer inflammation without streaking odor or redness. No bogginess or fluctuance on palpation healed sub fifth metatarsal head ulcer site; full epithelialization General Skin Exam: Negative for erythema Neuro Neuro Narrative: lack of normal epicritic sensation via light touch is consistent with neuropathy status Psych cooperative and affect normal Debridement Note Debridement Note Wound debrided: right sub 1st metatarsal head Wound Grade/Stage: 1 Type of Debridement: Excisional debridement Anesthesia Used: 4% Lidocaine Solution Depth: in the subcutaneous layer Percentage of wound debrided: 100 Instrument Used: #15 blade Tissue Removed: fibrous, devitalized subcutaneous, biofilm, slough Severity: Fat Layer Exposed Amount of bleeding with debridement: Mild Bleeding Controlled with: Pressure Patient tolerated procedure: Patient tolerated procedure well Post-Debridement Measurements and Additional Note: Post-Debridement Measurements/Treatment - Nurse 1 - General Ulcer Assessment Start: 03/23/22 10:33 Freq: Status: Active Protocol: LILLIANMiregoEXCarson Activity Type Activity Date Activity User E-sign Co-sign Detail Recorded Client Recorded Date Recorded By Document 03/23/22 10:33 ML [id number] 03/23/22 10:41 ML Document 03/30/22 10:46 RB [id number] 03/30/22 10:49 RB 03/23/22 03/30/22 10:33 10:46 - Today's Visit Information Type of service Follow-up Visit Follow-up Visit (Physician/OFFICE AUDITOR (Physician/OFFICE AUDITOR ) ) Arrival Mode Walker Ambulatory, Walker Transfer Assistance None None Patient Identification Verified (Name & Yes Yes ) Patient Requires Transmission-Based No No Precautions Safety Precautions NA Finger Stick Blood Sugar(mg/dl) (if 189 indicated): Blood Sugar Stated by Patient Height and Weight Body Mass Index (BMI) 37.8 37.8 BMI Classification Obese Obese Vital Signs Temperature (97.8 F-99.1 F) 96.9 F L 97.2 F L Temperature Source Temporal Temporal Pulse Rate (60-100) 95 88 Pulse Location Monitor Monitor Respiratory Rate (12-18) 18 18 Respiratory rate source Observation Observation Blood Pressure (90/60-120/80) 135/68 H 115/48 L Blood Pressure Mean (mm Hg) 90 70 Source Monitor Monitor Position Sitting Semi-Fowlers Blood Pressure Location Left Arm Left Arm History Since Last Visit- (Skip if this is Patient's initial visit) Have you changed medications since your No No last visit? Any new allergies or adverse reactions No No Had a fall/change in ADL's that may No No increase risk of falls Signs or symptoms of abuse and/or No No neglect since last visit Have you been in the hospital since your No No last visit? Has dressing in place as prescribed No Yes Has compression in place as prescribed Yes No Has offloadiing in place as prescribed Yes Yes Experienced any changes in pain level or No No management Left Footwear Regular Shoe Right Footwear Surgical Shoe Removable Cast with pressure Walker/Walking relief insole Boot Pain Scale: 0-10 Numeric Is Patient Pain Free? Yes Yes WC - Nurse 1 - General Ulcer Measurement Start: 03/23/22 10:33 Freq: Status: Active Protocol: Activity Type Activity Date Activity User E-sign Co-sign Detail Recorded Client Recorded Date Recorded By Document 03/23/22 10:33 ML [id number] 03/23/22 10:41 ML Document 03/30/22 10:46 RB [id number] 03/30/22 10:49 RB 03/23/22 03/30/22 10:33 10:46 Wound Center Nurse 1 3-right 5th methead -Current Size (cm) - Length 1 -Current Size (cm) - Width 1 -Current Size (cm) - Depth 0.1 -Total Square Cm 1 -Exudate Amt Medium -Exudate Type Serous -Wound Margin Distinct, Outline Attached -Granulation Amt Medium (34-66%) -Necrosis Amt Medium (34-66%) -Necrotic Tissue Type Adherent Slough -Texture (Pao-wound Skin Appearance) Assessed -Moisture (Pao-wound Skin Appearance) Assessed -Color (Pao-wound Skin Appearance) Assessed -Temperature (Pao-wound Skin No Abnormality Appearance) (Pt Warm) -Ulcer Cleansing Rinsed/ Irrigated with Saline -Foul Odor after Cleansing No -Anesthetic Used 5% Lidocaine Gel 2-right 1st methead -Combined with other wound No -Current Size (cm) - Length 0.1 0.7 -Current Size (cm) - Width 0.1 0.6 -Current Size (cm) - Depth 0.1 0.4 -Total Square Cm 0.01 0.42 -Photo Taken Yes -Tunneling No -Undermining/Tunneling No -Circular Undermining No -Exudate Amt Small Medium -Exudate Type Serosanguineous Serosanguineous -Wound Margin Distinct, Distinct, Outline Outline Attached Attached -Granulation Amt Medium (34-66%) -Granulation Quality [place] -Slough/Fibrin Yes -Necrosis Amt Small (1-33%) Medium (34-66%) -Necrotic Tissue Type Adherent Slough Adherent Slough -Structure Exposed N/A -Texture (Pao-wound Skin Appearance) Assessed Assessed,Callus -Moisture (Pao-wound Skin Appearance) Assessed Assessed -Color (Pao-wound Skin Appearance) Assessed Assessed -Temperature (Pao-wound Skin No Abnormality No Abnormality Appearance) (Pt Warm) (Pt Warm) -Tenderness on Palpation (Pao-wound Yes No Skin Appearance) -Ulcer Cleansing Rinsed/ Wound Cleanser Irrigated with Saline -Foul Odor after Cleansing No No -Anesthetic Used 5% Lidocaine 5% Lidocaine Gel Gel WC - Nurse 2 - General Ulcer CM Notes Start: 03/23/22 10:33 Freq: Status: Active Protocol: Activity Type Activity Date Activity User E-sign Co-sign Detail Recorded Client Recorded Date Recorded By Document 03/23/22 10:54 [id number] 03/23/22 10:57 Document 03/30/22 11:08 [id number] 03/30/22 11:11 03/23/22 03/30/22 10:54 11:08 Wound Center Nurse 2 3-right 5th methead -Correct Patient No -Correct Side, Site, Position No -Correct Procedure No -Procedure Performed No -Post Debridement (cm) - Length 0 -Post Debridement (cm) - Width 0 -Post Debridement (cm) - Depth 0 -Total Square (Post) (cm) 0 -Area of Debridement (cm) - Length 0 -Area of Debridement (cm) - Width 0 -Total Square (Area) (cm) 0 -Wound/Ulcer Outcome Healed- Epithelialized 2-right 1st methead -Time 10:55 11:08 -Correct Patient Yes Yes -Correct Side, Site, Position Yes Yes -Correct Procedure Yes Yes -Procedure Performed Yes Yes -Type of Procedure Debridement Debridement -Clinical Debridement Subcutaneous Subcutaneous -Tissue Removed Subcutaneous Subcutaneous -Post Debridement (cm) - Length 0.9 1.4 -Post Debridement (cm) - Width 1.0 1.3 -Post Debridement (cm) - Depth 0.1 0.1 -Total Square (Post) (cm) 0.90 1.82 -Area of Debridement (cm) - Length 0.9 1.4 -Area of Debridement (cm) - Width 1.0 1.3 -Total Square (Area) (cm) 0.90 1.82 -Tunneling No No -Undermining/Tunneling No No -Circular Undermining No No -Wound/Ulcer Outcome Not Healed Not Healed -Ulcer Cleansing Rinsed/ Rinsed/ Irrigated with Irrigated with Saline Saline -Foul Odor after Cleansing No No -Bioengineered Tissue No No -Bleeding Controlled with Pressure Pressure -Treatment Response Procedure Procedure Tolerated Well Tolerated Well -Offloading Yes Yes -Type of Offloading Surgical Shoe Camwalker -Assistive Device(s) Walker Walker -Debridement - Subq, 1st 20sq cm Yes Yes Pain Scale: 0-10 Numeric Is Patient Pain Free? Yes Yes - Nurse 3 - General Ulcer D/C NN Start: 03/23/22 10:33 Freq: Status: Active Protocol: Activity Type Activity Date Activity User E-sign Co-sign Detail Recorded Client Recorded Date Recorded By Document 03/23/22 11:12 DL [id number] 03/23/22 11:13 DL Document 03/30/22 11:29 [facility] [id number] 03/30/22 11:30 [facility] 03/23/22 03/30/22 11:12 11:29 Wound Care Nurse 3 2-right 1st methead -Ulcer Cleansing Rinsed/ Rinsed/ Irrigated with Irrigated with Saline Saline -Foul Odor after Cleansing No No -Primary Dressing Applied Aquacel AG 2x2 Aquacel AG 2x2 -Primary Dressing Covered/Secured with Dry Gauze & Dry Gauze & Roll Gauze, Roll Gauze, Secured with Secured with Tape Tape -Aquacel AG 2x2 1 1 Treatment Response Procedure Procedure Tolerated Well Tolerated Well Pain Scale: 0-10 Numeric Is Patient Pain Free? Yes Yes - Visit Discharge Discharge Condition Stable Stable Ambulatory Status Ambulatory, Ambulatory, Walker Walker Transportation Private Auto Private Auto Facility Type [facility] Facility Orders Sent Yes Assessment/Plan Assessment/Plan (1) Chronic ulcer of right foot with fat layer exposed: CODE(S): L97.512 - Non-pressure chronic ulcer of other part of right foot with fat layer exposed (2) Type 2 diabetes mellitus with diabetic polyneuropathy: CODE(S): E11.42 - Type 2 diabetes mellitus with diabetic polyneuropathy (3) Other specified peripheral vascular diseases: CODE(S): I73.89 - Other specified peripheral vascular diseases (4) Claudication: CODE(S): I73.9 - Peripheral vascular disease, unspecified (5) Chronic malnutrition: CODE(S): E46 - Unspecified protein-calorie malnutrition (6) Difficulty in walking, not elsewhere classified: CODE(S): R26.2 - Difficulty in walking, not elsewhere classified (7) Obesity (BMI 30-39.9): CODE(S): E66.9 - Obesity, unspecified PLAN: Plan I reviewed and discussed his case today. Debridement was performed today as noted in the clinical panel to all of the ulcer sites. The following work up and care recommendations were made: Dressing: Aquacel Ag Wash: Soap and water. To avoid soaking Offload: Heel weight-bear with cam walker boot which was fitted and dispensed this past week and I added dual density offloading Plastizote liner pocket to futher offload. A total contact cast would be great as long as I can sure he has adequate blood flow for healing. in the meantime I also advised that a cam walker would offload this site even better and a prescription was provided. To use walker. He resides in a residential facility and should be able to stay off of his foot. Vascular: His noninvasive vascular studies were reviewed with some monophasic waveforms of the right lower extremity. Vascular surgery referral was provided. He does not appear to have clinical signs of critical limb ischemia. He is scheduled to see dr. moreira next Monday and has additional doppler test scheduled for next Mon. Edema: To elevate Infection: It is noted that he has been treated with oral antibiotics for cellulitis per culture results. He is currently on oral doxycycline and Augmentin. To complete this course. To monitor for worsening local signs of infection or development of systemic infection. Pain: Controlled due to his neuropathy status Host factors: His medical comorbidities are noted. His A1c is 6.7%. I recommend nutritional supplementation, Per. He already had an amputation of the left lower extremity and understands he is at risk for further limb loss. Post issues: His multiple medical comorbidities including obesity diabetes and congestive heart failure are noted and this is complicating his healing course. I recommend nutritional supplementation with Per. I also recommend a dietitian referral and this is provided today to optimize weight loss and continue diabetic control and to reduce the risk of further vascular deterioration. To avoid processed foods. Diagnostic data: Labs reviewed for home 02-28-2022 with GFR 58, albumin 3.0, white blood cell count 8.4, A1c 6.7%, C-reactive protein 29.8, prealbumin 20, sed rate 74. Additional x-ray of the foot from 02-28-2022 noted degenerative changes with no other findings indicating osteomyelitis. The imaging study including the CD were requested. We discussed long-term management and I recommend really focusing on prevention after his ulcers heals and management of medical comorbidities to lower his risk. He asks if an amputation of the great toe is appropriate and I do not recommend this due to his peripheral vascular disease and other comorbidities. I recommend reserving this for if his status deteriorates or if he gets an infection. I answered all the patient's questions. To return to the wound healing center in 1 week or call sooner if the patient has any questions or concerns. Note: [employer] speech recognition director of corporate sales software was used to create portions of this document. Sound-alike and misspelled words, as well as other director of corporate sales errors may be contained in the documentation. 32 minutes was spent on this encounter. This included face to face and non face to face care including preparing for the visit, reviewing the history, performing the exam, counseling and providing education to the patient, family, or caregiver, ordering medications/test/ procedures if indicated as documented, communicating with other healthcare providers, documenting information in the medical record, interpreting / sharing this information when indicated as documented, and care coordination. The medical decision making level is moderate based on data including at least three of the following: review of prior external notes, review of a test, ordering a test, assessment requiring an independent historian.
--- NOTE | 2022-04-06 09:51 | ART_ITS ---
Reason For Study: Foot ulcer Procedure A bilateral lower extremity continuous wave Doppler with analog waveform analysis,segmental pressures,and ankle brachial indexes without exercise. Left Segmental Pressures Left brachial= 164mmHg. Left thigh = 169mmHg. Left calf = 159mmHg. Left posterior tibial artery = 147mmHg. Left dorsalis pedis artery = 148mmHg. The left dorsalis pedis waveforms are triphasic. The left posterior tibial artery waveforms are triphasic. Right Segmental Pressures Right brachial= 159mmHg. Right thigh = 190mmHg. Right calf = 136mmHg. Right posterior tibial artery = 146mmHg. Right dorsalis pedis artery = 142mmHg. Right digit = 135 mmHg. The right dorsalis pedis waveforms are triphasic. The right posterior tibial artery waveforms are triphasic. Indices The right ankle brachial index by the dorsalis pedis is 0.87. The right ankle brachial index by the posterior tibial artery is 0.89. The right digital-brachial index is 0.82. The left ankle brachial index by the dorsalis pedis is 0.90. The left ankle brachial index by the posterior tibial artery is 0.90. VL/Lower Ext Art Exam w/o Exercis Interpretation Summary Bilateral lower extremities with no evidence of significant occlusive disease a t rest with bilateral triphasic flow and an YONI 0.89 on the right and 0.9 on the left. Right digit br achial index of 0.82. Ordering Physician: Yasmin Bowen Performed By: Nilda Izquierdo RVT
--- NOTE | 2022-04-06 09:51 | VDLE_ITS ---
Reason For Study: Foot ulcer RIGHT LEFT CFV is compressible, spontaneous, phasic, CFV is compressible, spontaneous, phasic, competent and demonstrates normal competent, and demonstrates normal augmentation. augmentation. FV is compressible, spontaneous, phasic, FV is compressible, spontaneous, phasic, competent and demonstrates normal competent and demonstrates normal augmentation. augmentation. POP V is compressible, spontaneous, phasic, POP V is compressible, spontaneous, phasic, competent and demonstrates normal competent and demonstrates normal augmentation. augmentation. T/P Trunk is compressible. T/P Trunk is compressible. PTV is compressible. PTV is compressible. RT PerV is compressible. LT PerV is compressible. SFJ is competent and measures 0.46 x 0.48 cm. SFJ is competent and measures 0.86 x 0.92 cm. GSV proximal thigh measures 0.47 x 0.47 cm. GSV proximal thigh measures 0.43 x 0.42 cm. GSV at knee measures 0.41 x 0.40 cm. GSV above knee is INCOMPETENT for greater GSV is competent throughout. than 0.5 seconds. SSV at junction is competent and measures GSV at knee measures 0.29 x 0.30 cm. 0.18 x 0.19 cm. GSV below knee is competent. Procedure SSV at junction is competent and measures This is a venous duplex using B-mode, color 0.32 x 0.35 cm. flow and spectral Doppler. Exam performed in department. A preliminary report was called and/or faxed to . VL/Venous Duplex US - Deep Extrem Interpretation Summary Bilateral lower extremities with no evidence of DVT noted. Right lower extremit y with no evidence of deep or superficial reflux. Left greater saphenous measuring 4.3 mm with reflux above the knee. Ordering Physician: Mayda Lemos Performed By: Willinger, Nilda, RVT
[2022-04-06 11:23] VITALS: BP 139/66; PULSE 95; RESP 18; TEMP 36.4; BMI 37.8
== END 2022-04-14 23:59 ==
LOC: WC 11:30
PROVIDERS: Referring Provider Podiatrist; Visit Provider Podiatrist
DX: E11.621 Type 2 diabetes mellitus with foot ulcer (principal); E11.51 Type 2 diabetes mellitus with diabetic peripheral angiopathy without gangrene; L97.512 Non-pressure chronic ulcer of other part of right foot with fat layer exposed; E46 Unspecified protein-calorie malnutrition; I50.9 Heart failure, unspecified; I11.0 Hypertensive heart disease with heart failure; E11.42 Type 2 diabetes mellitus with diabetic polyneuropathy; I73.89 Other specified peripheral vascular diseases; R26.2 Difficulty in walking, not elsewhere classified; Z86.16 Personal history of COVID-19; E66.9 Obesity, unspecified; R60.0 Localized edema
CPT/HCPCS: 11042; 93923; 93970

== ENCOUNTER 2022-04-20 10:11 | Outpatient (RCR) | payer MEDICAID, SELFPAY ==
--- NOTE | 2022-04-06 15:11 | PN.PCM_ITS ---
History of Present Illness Date of Service: 04/06/22 Chief Complaint: Right foot ulcers History of Wound: Ovidio is a pleasant 51-year-old male with significant past medical history of type 2 diabetes mellitus (A1C 6.7%), hypertension, DOMINGO, congestive heart failure, obesity, gout, osteoarthritis, neuropathy, metabolic encephalopathy, former tobacco use, and COVID-19 pneumonia. He recently healed a sacral ulcer and mentioned that he had right foot ulcers. He also has neuropathy with loss of sensation and rest paresthesias consistent with neuropathy status. It is noted he had a prior left transmetatarsal amputation. He denies current fever, chill, nausea, vomiting, odor or redness of the foot. He is scheduled to see vascular surgeon this Monday and had additional testing completed. He is working with a physical therapist and uses a walker. He also has a nutrition consult appointment set up. Progress of Wound: Improving quality Physical Exam Const alert and oriented x3 General Appearance: cooperative HEENT normocephalic Extremity Extremity Narrative: No calf tenderness Diminished pulses Muscle wasting noted Compartments are soft to palpate bilateral lower extremities Left transmetatarsal amputation without ulcer Dorsal contraction of lesser toes with prominent metatarsal heads (all) General Extremity: edema and no tenderness to palpation of joints or extremities; Negative for cyanosis Skin Skin Narrative: no purulence, no streaking, no odor, no infection. Skin discontinuity sub first metatarsal head with granular base and peripheral callus. No deep probing. Mi ld cassie ulcer inflammation without streaking odor or redness. No bogginess or fluctuance on palpation healed sub fifth metatarsal head ulcer site; full epithelialization General Skin Exam: Negative for erythema Neuro Neuro Narrative: lack of normal epicritic sensation via light touch is consistent with neuropathy status Psych cooperative and affect normal Debridement Note Debridement Note Wound debrided: right sub 1st metatarsal head Wound Grade/Stage: 1 Type of Debridement: Excisional debridement Anesthesia Used: 4% Lidocaine Solution Depth: in the subcutaneous layer Percentage of wound debrided: 100 Instrument Used: #15 blade Tissue Removed: fibrous, devitalized subcutaneous, biofilm, slough Severity: Fat Layer Exposed Amount of bleeding with debridement: Mild Bleeding Controlled with: Pressure Patient tolerated procedure: Patient tolerated procedure well Assessment/Plan Assessment/Plan (1) Chronic ulcer of right foot with fat layer exposed: CODE(S): L97.512 - Non-pressure chronic ulcer of other part of right foot with fat layer exposed (2) Type 2 diabetes mellitus with diabetic polyneuropathy: CODE(S): E11.42 - Type 2 diabetes mellitus with diabetic polyneuropathy (3) Other specified peripheral vascular diseases: CODE(S): I73.89 - Other specified peripheral vascular diseases (4) Claudication: CODE(S): I73.9 - Peripheral vascular disease, unspecified (5) Chronic malnutrition: CODE(S): E46 - Unspecified protein-calorie malnutrition (6) Difficulty in walking, not elsewhere classified: CODE(S): R26.2 - Difficulty in walking, not elsewhere classified (7) Obesity (BMI 30-39.9): CODE(S): E66.9 - Obesity, unspecified PLAN: Plan I reviewed and discussed his case today. Debridement was performed today as noted in the clinical panel to all of the ulcer sites. The following work up and care recommendations were made: Dressing: Aquacel Ag Wash: Soap and water. To avoid soaking Offload: Heel weight-bear with cam walker boot which was fitted and dispensed this past week and Plastizote liner pocketwas's further updated to take more pressure off of the ulcer site. A total contact cast would be great as long as I can sure he has adequate blood flow for healing. in the meantime I also advised that a cam walker would offload this site even better and a prescription was provided. To use walker. He resides in a alf facility and should be able to stay off of his foot. Vascular: His noninvasive vascular studies were reviewed with some monophasic waveforms of the right lower extremity. Vascular surgery referral was provided. He does not appear to have clinical signs of critical limb ischemia. He is scheduled to see dr. moreira this Monday. There are no gross abnormalities with his updated noninvasive vascular studies completed at [facility] and I do not have access to view the updated arterial Doppler results. Edema: To elevate Infection: It is noted that he has been treated with oral antibiotics for cellulitis per culture results. He is currently on oral doxycycline and Augmentin. To complete this course. To monitor for worsening local signs of infection or development of systemic infection. Pain: Controlled due to his neuropathy status Host factors: His medical comorbidities are noted. His A1c is 6.7%. I recommend nutritional supplementation, Per. He already had an amputation of the left lower extremity and understands he is at risk for further limb loss. Host issues: His multiple medical comorbidities including obesity diabetes and congestive heart failure are noted and this is complicating his healing course. I recommend nutritional supplementation with Per. I also recommend a dietitian referral and this is provided today to optimize weight loss and continue diabetic control and to reduce the risk of further vascular deterioration. This consult has been scheduled. To avoid processed foods. Diagnostic data: Labs reviewed for home 02-28-2022 with GFR 58, albumin 3.0, white blood cell count 8.4, A1c 6.7%, C-reactive protein 29.8, prealbumin 20, sed rate 74. Additional x-ray of the foot from 02-28-2022 noted degenerative changes with no other findings indicating osteomyelitis. The imaging study including the CD were requested. We discussed long-term management and I recommend really focusing on prevention after his ulcers heals and management of medical comorbidities to lower his risk. He asks if an amputation of the great toe is appropriate and I do not recommend this due to his peripheral vascular disease and other comorbidities. I recommend reserving this for if his status deteriorates or if he gets an infection. I answered all the patient's questions. To return to the wound healing center in 1 week or call sooner if the patient has any questions or concerns. Note: [employer] speech recognition broadcast chief engineer software was used to create portions of this document. Sound-alike and misspelled words, as well as other broadcast chief engineer errors may be contained in the documentation.
== END 2022-05-15 23:59 ==
LOC: DC 10:11
PROVIDERS: Referring Provider Podiatrist; Visit Provider Podiatrist
DX: Z71.3 Dietary counseling and surveillance (principal); E66.9 Obesity, unspecified; Z68.37 Body mass index [BMI] 37.0-37.9, adult; E11.42 Type 2 diabetes mellitus with diabetic polyneuropathy; L97.512 Non-pressure chronic ulcer of other part of right foot with fat layer exposed; E11.621 Type 2 diabetes mellitus with foot ulcer
CPT/HCPCS: G0108

== ENCOUNTER 2022-04-27 15:04 | Emergency (ER) | payer MEDICAID, SELFPAY ==
[2022-04-27 15:04] VITALS: BP 205/95; PULSE 89; RESP 16; TEMP 36.6; O2SAT 100; BMI 38.5
--- NOTE | 2022-04-27 15:23 | EKG12_ITS ---
Test Reason : ALT LOC Blood Pressure : / mmHG Vent. Rate : 082 BPM Atrial Rate : 082 BPM P-R Int : 174 ms QRS Dur : 104 ms QT Int : 388 ms P-R-T Axes : 020 016 025 degrees QTc Int : 453 ms Normal sinus rhythm Normal ECG Confirmed by BRI CARTER, DEBI ([id number]), health editor OSMAR KELLY ([id number]) on 04/29/2022 10:30:59 A M Referred By: INDU Confirmed By:CRISTIAN GREGORY MD
--- NOTE | 2022-04-27 15:23 | CT_ITS ---
EXAM: CT HEAD WITHOUT INTRAVENOUS CONTRAST CLINICAL INDICATION: ALOC TECHNIQUE: Multiple axial images were obtained of the head without intravenous contrast. This CT exam was performed using one or more of the following dose reduction techniques: automated exposure control, adjustment of the mA and/or kV according to patient size, and/or use of iterative reconstruction technique. This report was created using [employer] report generation technology. COMPARISON: None. FINDINGS: BRAIN AND EXTRA-AXIAL SPACES: Unremarkable. No intra- or extra-axial hemorrhage. No evidence of acute infarct. No intracranial mass or mass effect. There is preservation of the [place]/white matter interface. Posterior fossa structures are unremarkable. Ventricles are appropriate for age. No hydrocephalus. Basal cisterns are patent. BONES/JOINTS: Unremarkable. No discrete lytic or blastic abnormalities. SINUSES: Unremarkable as visualized. Clear. MASTOID AIR CELLS: Unremarkable. Clear. ORBITS: Visualized globes, extraocular muscles, optic nerves and retrobulbar fat appear unremarkable. CT/Brain/Head without Contrast IMPRESSION: Negative head/brain CT without intravenous contrast. Electronically Signed: Jon Garcia MD at 17:03 EDT ,
--- NOTE | 2022-04-27 15:25 | EX.ED.DYSGE1 ---
HPI History of Present Illness Chief Complaint: Alt LOC Informant: patient and SNF Onset/Context/Timing Onset: Today and Hours Context: Gradual Onset Timing: Continuous Current Severity: Mild Maximum Severity: Mild Narrative Narrative: 49-year-old male history of diabetes. He lives at home and would rehab center. Today were taken in the wound care center. He said he became diaphoretic and had a mental status change objective vital signs are tinier unremarkable and his sugar was around 130 at that time. He denied any complaints. He just did not seem as sharp as he should have been. He went to the wound care center. In the [place] emergency department to be evaluated. He denies any nausea, vomiting or diarrhea. He denies any fever. He denies any headache. He has been admitted to an [facility] in the last 1 to 2 months. He has gone to different local emergency department twice in the last several weeks for chest pain and was discharged to home. Prior similar symptoms: No Recent Illness/Hospitalization: Yes [facility] Medical History (Updated 04/27/22 @ 19:[address] Roman Pereira MD) Aphasia History of tobacco use Hypertension Major depressive disorder Metabolic encephalopathy Obesity Pneumonia due to COVID-19 virus Stage III pressure ulcer of sacral region Type 2 diabetes mellitus with other skin ulcer Ulcer of forefoot due to type 2 diabetes mellitus Home Medications acetaminophen 325 mg capsule (Tylenol) 650 mg PO Q8H PAIN 09/24/21 [History Last Taken Unknown] allopurinol 100 mg tablet 100 mg PO DAILY GOUT 09/24/21 [History Last Taken 04/27/22] carbamazepine 200 mg tablet,extended release,12 hr (Tegretol XR) 300 mg PO BID NERVE PAIN 09/24/21 [History Last Taken 04/27/22] hydralazine 50 mg tablet 50 mg PO TID HTN 09/24/21 [History Last Taken 04/27/22] insulin lispro 100 unit/mL subcutaneous cartridge (Humalog U-100 Insulin) See Protocol subcut TID 09/24/21 [History Last Taken 04/27/22] melatonin 3 mg tablet 3 mg PO QHS INSOMNIA 09/24/21 [History Last Taken 04/26/22] metoclopramide HCl 5 mg tablet (Reglan) 5 mg PO TID GERD 09/24/21 [History Last Taken 04/27/22] pantoprazole 40 mg tablet,delayed release (Protonix) 40 mg PO BID GERD 09/24/21 [History Last Taken 04/27/22] sumatriptan 85 mg-naproxen 500 mg tablet (Treximet) 1 tab PO Q24H PRN Migraine Headache 09/24/21 [History Last Taken Unknown] tizanidine 2 mg tablet 2 mg PO Q8H PRN Spasms 09/24/21 [History Last Taken 04/27/22] arginine 7 gram-glutamine 7 gram-calcium HMB 1.5 gram oral powder pack (Per) 1 ea PO BID SUPPLEMENT 04/27/22 [History Last Taken 04/27/22] aspirin 325 mg tablet 650 mg PO TID NSTEMI 04/27/22 [History Last Taken 04/27/22] atorvastatin 80 mg tablet 80 mg PO QHS CHOLESTEROL 04/27/22 [History Last Taken 04/26/22] calcium carbonate 500 mg-vitamin D3 5 mcg (200 unit) tablet 1 tab PO BID 04/27/22 [History Last Taken 04/27/22] colchicine 0.6 mg tablet 0.6 mg PO BID GOUT 04/27/22 [History Last Taken 04/27/22] duloxetine 60 mg capsule,delayed release sprinkle 120 mg PO DAILY DEPRESSION 04/27/22 [History Last Taken 04/27/22] insulin glargine 100 unit/mL subcutaneous solution (Lantus U-100 Insulin) 66 unit subcut QHS DM 04/27/22 [History Last Taken 04/26/22] insulin lispro 100 unit/mL subcutaneous pen (Humalog KwikPen (U-100) Insulin) 24 unit subcut TIDCM DM 04/27/22 [History Last Taken 04/27/22] lorazepam 0.5 mg tablet (Ativan) 0.5 mg PO TID PRN Anxiety 04/27/22 [History Last Taken Unknown] metoprolol tartrate 25 mg tablet 25 mg PO BID HTN 04/27/22 [History Last Taken 04/27/22] nitroglycerin 0.4 mg sublingual tablet 0.4 mg sublingual Q5M PRN Chest Pain 04/27/22 [History Last Taken 04/23/22] ondansetron HCl 4 mg tablet 4 mg PO Q6H PRN Nausea And Vomiting 04/27/22 [History Last Taken Unknown] oxycodone 20 mg tablet 20 mg PO BID PRN Pain 04/27/22 [History Last Taken 04/27/22] sennosides 8.6 mg-docusate sodium 50 mg tablet (Senna with Docusate Sodium) 1 tab PO BID CONSTIPATION 04/27/22 [History Last Taken 04/27/22] Allergy/AdvReac Type Severity Reaction Status Date / Time No Known Allergies Allergy Verified 04/27/22 15:08 Social History Smoking Status: Former smoker ROS ROS ED ROS Narrative Denies. Constitutional Constitutional ED: Denies chills Eyes Eyes: Denies blurry vision ENT ENT ED: Denies ear pain Cardiovascular Cardiovascular: Denies chest pain Respiratory/Chest Respiratory/Chest: Denies cough Gastrointestinal Gastrointestinal: Denies abdominal pain Genitourinary Genitourinary ED: Denies dysuria Musculoskeletal Musculoskeletal: Denies arthralgias Integumentary Denies abscess Neurologic Neurologic: Denies headache(s) Psychiatric Psychiatric: Denies anxiety Endocrine Endocrinology: Denies cold intolerance Hematologic/Lymphatic Hematologic/Lymphatic: Reports none Allergic/Immunologic Allergic/Immunologic ED: Denies mouth swelling or tongue swelling EXAM Physical Exam Narrative Exam Narrative: 31-year-old male no acute distress. Vital signs are stable afebrile. Initial blood pressure 205/95. Pulse ox 90% on room air no hypoxia. There is a mostly staff member from the patient's rehabilitation facility in the room with him. H EENT exam unremarkable. No signs of trauma. Moist membranes. Neck nontender. No lymphadenopathy. Lungs clear to auscultation. Heart regular rate and rhythm rate about 90 no murmur. Abdomen obese but soft nontender normal bowel sounds no peritoneal signs. Moving all 4 extremities. 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 Dorsi plantarflexion intact. Amputated toes on both feet that is old. He has neuropathies in his hands and feet. Neurologically he is awake. He does answer questions and follow commands. He knows he is in the emergency department. No focal motor deficits 1 Const Vital Signs: 04/27/22 15:04 04/27/22 16:04 04/27/22 17:00 Temperature 97.8 F Temperature Source Temporal Pulse Rate 89 80 85 Respiratory Rate 16 15 17 Blood Pressure 205/95 H 170/94 H 174/90 H Blood Pressure Mean 131 119 118 Pulse Ox 100 98 96 Oxygen Delivery Method Room Air Room Air Room Air 04/27/22 18:00 04/27/22 19:00 Temperature Temperature Source Pulse Rate 76 75 Respiratory Rate 15 17 Blood Pressure 195/84 H 191/73 H Blood Pressure Mean 121 112 Pulse Ox 97 98 Oxygen Delivery Method Room Air Room Air Positive well nourished, well developed and obese; Negative for cachectic, contractures or unkempt General Appearance ED: well developed; Negative for unkempt, cachectic or contractures Nutritional Appearance: obese; Negative for cachectic HEENT Reports moist mucous membranes; Denies dry mucous membranes Negative for trauma Mouth ED: No dry mucous membranes Mouth: No dry mucous membranes Eyes PERRL and EOMs intact bilaterally General Eye ED: Negative for pale conjunctiva or scleral icterus Neck no lymphadenopathy, supple and no JVD Chest Wall inspection of chest normal and palpation of chest normal Resp normal respiratory effort and clear to auscultation bilaterally Effort and Inspection: Negative for retractions Auscultation: Negative for rales, rhonchi or wheezes Cardio regular rate, regular rhythm, S1 normal heart sound and S2 normal heart sound GI normal to inspection, nondistended, normoactive bowel sounds, non-tender, non-distended and no masses Inspection: Negative for abdominal distention Auscultation: normoactive bowel sounds Palpation: soft; Negative for tender or guarding Back/Spine no CVA tenderness General Back: Negative for CVA tenderness Cervical Spine: Negative for cervical spine tenderness Thoracic Spine / Upper Back: Negative for thoracic spinal tenderness Lumbar Spine / Lower Back: Negative for lumbar spinal tenderness Extremity normal to inspection Extremity Narrative: Chronic wound right lower leg area prior amputated toes of both feet. Neuropathies in hands and feet. General Extremety ED: Negative for edema or tenderness General Extremity: Negative for edema Neuro Sensorium / Orientation: alert Motor Exam: strength 5/5 throughout Psych mental status grossly normal Appearance: Negative for unkempt Attitude: No agitated Mood & Affect: Negative for depressed or anxious Skin no rashes or lesions noted Rashes: No rashes noted Trauma: Negative for abrasion Wounds: wounds noted MDM MDM MDM Narrative Medical decision making narrative: 51-year-old male with altered mental status that appears to be improving according to the staff that is with him. He denies complaints. Exam is benign.. Repeat exam patient doing well at 7:21 PM. Work-up is unremarkable be discharged back to his extended care facility. Lab Data Attestation: I reviewed the patient's lab results. Lab results narrative: CBC shows a white count 8.9. H&H 10.9 and 32. Platelets 151. Electrolytes show a gap of 5. BUN 30 creatinine 1.1. Glucose 139. Liver enzymes unremarkable. CAT scan of his brain shows no acute abnormality. Chest x-ray unremarkable. No prior labs available for comparison. Urinalysis shows no nitrites. Occult blood. 10-25 red cells. No white cells. Rare bacteria. Labs: Laboratory Results - last 24 hr 04/27/22 04/27/22 04/27/22 16:08 16:08 17:14 WBC 8.9 RBC 3.70 L Hgb 10.9 L Hct 32.1 L MCV 86.8 MCH 29.5 MCHC 34.0 RDW Std Deviation 42.6 RDW Coeff of Gonzalez 13.5 Plt Count 151 MPV 9.3 Immature Gran % (Auto) 0.400 Neut % (Auto) 67.3 Lymph % (Auto) 21.8 Bell % (Auto) 8.9 Eos % (Auto) 1.3 Baso % (Auto) 0.3 Absolute Neuts (auto) 6.0 Absolute Lymphs (auto) 1.94 Nucleated RBC % 0 Sodium 136 Potassium 4.0 Chloride 104 Carbon Dioxide 27.0 Anion Gap 5 BUN 30 H Creatinine 1.18 Estim Creat Clear Calc 85.14 Est GFR (MDRD) Af Amer 83 Est GFR (MDRD) Non-Af 69 BUN/Creatinine Ratio 25.4 H Glucose 139 H Calcium 9.1 Total Bilirubin 0.40 AST 14 L ALT 14 L Alkaline Phosphatase 104 Total Protein 7.4 Albumin 2.7 L Globulin 4.7 H Albumin/Globulin Ratio 0.6 L Urine Color Yellow Urine Clarity Clear Urine pH 6.0 Ur Specific [place] 1.015 Urine Protein 500 H Urine Glucose (UA) Normal Urine Ketones 5 H Urine Occult Blood 50 H Urine Nitrite Negative Urine Bilirubin Negative Urine Urobilinogen Normal Ur Leukocyte Esterase 25 H Urine RBC 10-25 SEEN Urine WBC 0-5 SEEN Ur Squamous Epith Cells 0-5 SEEN Urine Bacteria RARE Urine Mucus 0 SEEN Radiography Chest X-Ray - ED: 1 View, Read by ED Physician, Read by Radiologist, Heart, Lungs, Mediastinum, Bony Structures, No Acute Disease and Chronic Changes Diagnostic Testing: Clinical Impression(s) from Imaging Studies Brain CT 04/27/22 15:23 IMPRESSION: Negative head/brain CT without intravenous contrast. Electronically Signed: Jon Garcia MD at 17:03 EDT , Chest X-Ray 04/27/22 15:42 IMPRESSION: No radiographic evidence of acute cardiopulmonary disease. Electronically Signed: Jon Garcia MD at 17:03 EDT , Chest x-ray, single view, portable interpreted myself and radiologist shows no acute abnormality. Rhythm Strip Rhythm Strip: Sinus Rhythm Rate: 82 Ectopy: None EKG Initial EKG: Attestation: I personally reviewed and interpreted this EKG as follows: Interpretation: Sinus Rhythm and No Acute Injury Pattern Comments: Normal sinus rhythm rate 82 no acute signs of NM or ischemia. Unremarkable. Discharge Plan Triage Chief Complaint: Alt LOC ED Provider: Roman Pereira Dx/Rx/DC Orders Clinical Impression: Acute alteration in mental status, Anemia, History of diabetes mellitus Instructions: ED ALOC Prescriptions: No Action tizanidine 2 mg Tablet 2 mg PO Q8H PRN (Reason: Spasms) melatonin 3 mg Tablet 3 mg PO QHS allopurinol 100 mg Tablet 100 mg PO DAILY metoclopramide HCl [Reglan] 5 mg Tablet 5 mg PO TID carbamazepine [Tegretol XR] 200 mg Tablet Extended Release 12 Hr 300 mg PO BID pantoprazole [Protonix] 40 mg Tablet,Delayed Release (Dr/Ec) 40 mg PO BID hydralazine 50 mg Tablet 50 mg PO TID Humalog U-100 Insulin 100 unit/mL Cartridge See Protocol SUBCUT TID Protocol: 6. Sliding Scale Insulin Custom Condition: mg/dl range Dose/Route: Number of Units Condition: 151-200 Dose/Route: 2 Condition: 201-250 Dose/Route: 4 Condition: 251-300 Dose/Route: 6 Condition: 301-350 Dose/Route: 8 Condition: 351-400 Dose/Route: 10 Condition: 401-450 Dose/Route: 12 Protocol Text: Custom Sliding Scale acetaminophen [Tylenol] 325 mg Capsule 650 mg PO Q8H sumatriptan-naproxen [Treximet] 85-500 mg Tablet 1 tab PO Q24H PRN (Reason: Migraine Headache) atorvastatin 80 mg Tablet 80 mg PO QHS metoprolol tartrate 25 mg Tablet 25 mg PO BID duloxetine 60 mg Capsule, Delayed Rel Sprinkle 120 mg PO DAILY insulin glargine [Lantus U-100 Insulin] 100 unit/mL Solution 66 unit SUBCUT QHS aspirin 325 mg Tablet 650 mg PO TID ondansetron HCl 4 mg tablet 4 mg PO Q6H PRN (Reason: Nausea And Vomiting) sennosides-docusate sodium [Senna with Docusate Sodium] 8.6-50 mg Tablet 1 tab PO BID lorazepam [Ativan] 0.5 mg Tablet 0.5 mg PO TID PRN (Reason: Anxiety) Label Comments: PER CUSTODIAL MAR START DATE IS 04/27/22. nitroglycerin 0.4 mg Tablet, Sublingual 0.4 mg SUBLINGUAL Q5M PRN (Reason: Chest Pain) Rx Instructions: do not exceed 3 doses per episode colchicine 0.6 mg Tablet 0.6 mg PO BID insulin lispro [Humalog KwikPen Insulin] 100 unit/mL insulin pen 24 unit SUBCUT TIDCM calcium carbonate-vitamin D3 500 mg-5 mcg (200 unit) Tablet 1 tab PO BID oxycodone 20 mg Tablet 20 mg PO BID PRN (Reason: Pain) Per 7-7-1.5 gram Powder In Packet 1 ea PO BID Primary Care Provider: Carlos Wiseman Referrals: NOT,DEFINED [NON-STAFF] - Activity Restrictions/Additional Instructions: His evaluation today including labs, CAT scan of his brain x-ray and EKG were unremarkable. He has a mild anemia. No specific cause for what occurred today. Follow-up with his primary care physician. Disposition Disposition: Home, Self Care
--- NOTE | 2022-04-27 15:27 | NURSING ---
NO OLD EKGS
--- NOTE | 2022-04-27 15:42 | RAD_ITS ---
EXAM: XR CHEST, 1 VIEW CLINICAL INDICATION: MS change TECHNIQUE: Frontal view of the chest. This report was created using [employer] report generation technology. COMPARISON: None. FINDINGS: LUNGS AND PLEURAL SPACES: Unremarkable. No consolidation or edema. No pneumothorax. No effusion. HEART: Unremarkable. Cardiac silhouette not enlarged. MEDIASTINUM: Central airways and mediastinal contour are unremarkable. BONES/JOINTS: Unremarkable. SOFT TISSUES: Unremarkable. RAD/Chest 1 View (Portable) IMPRESSION: No radiographic evidence of acute cardiopulmonary disease. Electronically Signed: Jon Garcia MD at 17:03 EDT ,
[2022-04-27 16:04] VITALS: BP 170/94; PULSE 80; RESP 15; O2SAT 98
[2022-04-27 16:16] LABS: Absolute Lymphocyte Count 1.94 X10^3/uL (0.83-4.51); Basophil# 0.03 X10^3/uL; Basophil% 0.3 % (0-1); Eosinophil# 0.12 X10^3/uL; Eosinophils% 1.3 % (0-5); Hematocrit 32.1 % (40-54); Hemoglobin 10.9 g/dL (13.0-16.5); Lymphocyte # 1.94 X10^3/ul (0.83-4.51); Lymphocyte % 21.8 % (19-41); Mean Corpuscular Hgb 29.5 pg (27.0-32.0); Mean Corpuscular Volume 86.8 fL (80-94); Mean Platelet Vol. 9.3 fl (6.2-12.0); Monocyte# 0.79 X10^3/uL; Monocyte% 8.9 % (0-10); NRBC Flagged by Analyzer 0 % (0-5); Neutrophil # 5.98 X10^3/uL (2.7-7.7); Neutrophil % 67.3 % (47-70); Platelet Count 151 K/mm3 (150-450); RBC Distribution Width CV 13.5 % (11.6-14.6); RBC Distribution Width SD 42.6 fl (35.1-43.9); White Blood Count 8.9 K/mm3 (4.4-11.0)
[2022-04-27 16:36] LABS: ALB/GLOB Ratio 0.6 RATIO (0.9-2.4); AST(SGOT) 14 U/L (15-37); Alanine Aminotransfer ALT/SGPT 14 U/L (16-61); Albumin, Serum 2.7 g/dL (3.2-5.0); Alkaline Phosphatase 104 U/L (45-117); Anion Gap 5 (5-15); BUN 30 mg/dL (7-18); BUN/Creat Ratio 25.4 RATIO (10-20); Calcium,Total 9.1 mg/dL (8.5-10.1); Chloride 104 mmol/L (98-107); Creatinine, Serum 1.18 mg/dL (0.70-1.30); EST Glomerular Filtration Rate 69 mL/min (>60); Est Glom Filt Rate - Afr Amer 83 mL/min (>60); Estimated Creatinine Clearance 85.14 ml/min; Globulin 4.7 g/dL (2.2-4.2); Glucose 139 mg/dL (74-106); Protein, Total 7.4 g/dL (6.4-8.2); Sodium Level 136 mmol/L (136-145)
[2022-04-27 17:00] VITALS: BP 174/90; PULSE 85; RESP 17; O2SAT 96
--- NOTE | 2022-04-27 17:17 | ED.RN ---
pt attempted to urinate multiple times. thought he had urinated but did not. straight cathed for 1000ml.
[2022-04-27 17:20] LABS: Mucous, Urine 0 SEEN /hpf (<or=2+)
[2022-04-27 17:23] LABS: Color, Urine Yellow (Yellow); Glucose, Dipstick Normal (Normal); Ketone-Dipstick 5 mg/dl (Negative); Leukocyte Esterase-Dipstick 25 /ul (Negative); Nitrite-Dipstick Negative (Negative); Occult Blood-Urine 50 /ul (Negative); Protein-Dipstick 500 mg/dl (Negative); Specific Gravity, Urine 1.015 (1.002-1.030); Urine Bilirubin Dipstick Negative (Negative); Urine Clarity Clear (Clear); Urine Urobilinogen Normal (Normal)
[2022-04-27 17:50] LABS: Bacteria RARE /hpf (None Seen); Red Blood Cells-Urine 10-25 SEEN /hpf (0-5); Squamous Epithelial Cells - UA 0-5 SEEN /hpf (0-5); White Blood Cells 0-5 SEEN /hpf (0-5)
[2022-04-27 18:00] VITALS: BP 195/84; PULSE 76; RESP 15; O2SAT 97
[2022-04-27 19:00] VITALS: BP 191/73; PULSE 75; RESP 17; O2SAT 98
--- NOTE | 2022-04-27 20:07 | ED.RN ---
report called to tay at [facility].
--- NOTE | 2022-04-27 20:09 | NURSING ---
Called physicians at 1935 gave an eta of 90min to 2 hrs.
[2022-04-27 21:53] VITALS: BP 176/77; PULSE 79; RESP 16; O2SAT 99
== END 2022-04-27 22:00 | disposition home or self-care (01) ==
PROVIDERS: Emergency Provider Emergency Medicine; PCP Family Medicine; Visit Provider Emergency Medicine
DX: R41.82 Altered mental status, unspecified (principal); E11.621 Type 2 diabetes mellitus with foot ulcer; E11.51 Type 2 diabetes mellitus with diabetic peripheral angiopathy without gangrene; Z89.421 Acquired absence of other right toe(s); Z89.422 Acquired absence of other left toe(s); L97.512 Non-pressure chronic ulcer of other part of right foot with fat layer exposed; L97.522 Non-pressure chronic ulcer of other part of left foot with fat layer exposed; E11.42 Type 2 diabetes mellitus with diabetic polyneuropathy; Z79.4 Long term (current) use of insulin; E66.9 Obesity, unspecified; F32.9 Major depressive disorder, single episode, unspecified; I10 Essential (primary) hypertension; D64.9 Anemia, unspecified; Z79.899 Other long term (current) drug therapy; Z87.891 Personal history of nicotine dependence; R26.2 Difficulty in walking, not elsewhere classified
CPT/HCPCS: 11042; 70450; 71045; 80053; 81001; 85025; 93005; 96360; 99283; J7030; A4216

== ENCOUNTER 2022-05-04 11:15 | Outpatient (RCR) | payer MEDICAID, SELFPAY ==
[2022-04-15 00:24] VITALS: BP 139/66; PULSE 95; RESP 18; TEMP 36.4; BMI 37.8
[2022-04-27 14:14] VITALS: BP 177/92; PULSE 88; RESP 16; TEMP 36; BMI 37.8
--- NOTE | 2022-04-27 19:41 | PCM.WC.PN ---
History of Present Illness Date of Service: 04/27/22 Chief Complaint: Right foot ulcers History of Wound: Ovidio is a pleasant 51-year-old male with significant past medical history of type 2 diabetes mellitus (A1C 6.7%), hypertension, DOMINGO, congestive heart failure, obesity, gout, osteoarthritis, neuropathy, metabolic encephalopathy, former tobacco use, and COVID-19 pneumonia. He recently healed a sacral ulcer and mentioned that he had right foot ulcers. He also has neuropathy with loss of sensation and rest paresthesias consistent with neuropathy status. It is noted he had a prior left transmetatarsal amputation. He denies current fever, chill, nausea, vomiting, odor or redness of the foot. He is scheduled to see vascular surgeon this Monday and had additional testing completed. He is working with a physical therapist and uses a walker. He also has a nutrition consult appointment set up. He has a left cam walker and is not offloading the right foot. He has altered mental status and his medical aid is concerned. He will go to ER after this visit. He is hemodynamically stable during the visit. Objective Data Objective Data Vital Signs: Vital Signs Temp Pulse Resp BP O2 Del Method 96.8 F L 88 16 177/92 H Room Air 04/27/22 14:14 04/27/22 14:14 04/27/22 14:14 04/27/22 14:14 04/27/22 14:14 Oxygen Delivery Method Room Air Weight: 133.81 kg Body Mass Index (BMI) 37.8 Physical Exam Const alert and oriented x3 General Appearance: cooperative HEENT normocephalic Extremity Extremity Narrative: No calf tenderness Diminished pulses Muscle wasting noted Compartments are soft to palpate bilateral lower extremities Left transmetatarsal amputation without ulcer Dorsal contraction of lesser toes with prominent metatarsal heads (all) General Extremity: edema and no tenderness to palpation of joints or extremities; Negative for cyanosis Skin Skin Narrative: no purulence, no streaking, no odor, no infection. Skin discontinuity sub first metatarsal head with granular base and peripheral callus bilateral. No deep probing. resolved pao ulcer inflammation without streaking odor or redness. No bogginess or fluctuance on palpation General Skin Exam: Negative for erythema Neuro Neuro Narrative: lack of normal epicritic sensation via light touch is consistent with neuropathy status Psych cooperative and affect normal Debridement Note Debridement Note Wound debrided: right sub 1st metatarsal head, left sub 1st metatarsal head Wound Grade/Stage: 1, 1 Type of Debridement: Excisional debridement Anesthesia Used: 4% Lidocaine Solution Depth: in the subcutaneous layer Percentage of wound debrided: 100 Instrument Used: #15 blade Tissue Removed: fibrous, devitalized subcutaneous, biofilm, slough Severity: Fat Layer Exposed Amount of bleeding with debridement: Mild Bleeding Controlled with: Pressure Patient tolerated procedure: Patient tolerated procedure well Post-Debridement Measurements and Additional Note: Post-Debridement Measurements/Treatment - Nurse 1 - General Ulcer Assessment Start: 04/27/22 14:14 Freq: Status: Active Protocol: CHRISSY Activity Type Activity Date Activity User E-sign Co-sign Detail Recorded Client Recorded Date Recorded By Document 04/27/22 14:14 [facility] [id number] 04/27/22 14:29 [facility] 04/27/22 14:14 - Today's Visit Information Type of service Follow-up Visit (Physician/SITE SAFETY MANAGER ) Arrival Mode Wheelchair Transfer Assistance Other Transfer Assist (Other) 2 STAND BY; PT CONFUSED Accompanied by CAREGIVER FROM [facility] Patient Identification Verified (Name & Yes ) Patient Requires Transmission-Based No Precautions Finger Stick Blood Sugar(mg/dl) (if 130 indicated): Blood Sugar Stated by Patient Height and Weight Body Mass Index (BMI) 37.8 BMI Classification Obese Vital Signs Temperature (97.8 F-99.1 F) 96.8 F L Temperature Source Temporal Pulse Rate (60-100) 88 Pulse Location Monitor Respiratory Rate (12-18) 16 Respiratory rate source Observation Oxygen Delivery Method Room Air Blood Pressure (90/60-120/80) 177/92 H Blood Pressure Mean (mm Hg) 120 Source Monitor Position Sitting Blood Pressure Location Left Forearm Pain Scale: 0-10 Numeric Is Patient Pain Free? Yes [facility] Nurse 1 - General Ulcer Measurement Start: 04/27/22 14:14 Freq: Status: Active Protocol: Activity Type Activity Date Activity User E-sign Co-sign Detail Recorded Client Recorded Date Recorded By Document 04/27/22 14:14 [facility] [id number] 04/27/22 14:29 [facility] 04/27/22 14:14 Wound Center Nurse 1 #4- L PLANTAR -Combined with other wound No -Current Size (cm) - Length 0.1 -Current Size (cm) - Width 0.1 -Current Size (cm) - Depth 0.1 -Total Square Cm 0.01 -Date of Last Picture (Recall this 04/27/22 field) -Photo Taken Yes -Epithelialization None Present -Tunneling No -Undermining/Tunneling No -Circular Undermining No -Exudate Amt Small -Exudate Type Serous -Wound Margin Distinct, Outline Attached -Granulation Amt None Present (0 %) -Slough/Fibrin Yes -Necrosis Amt Large (67-100%) -Necrotic Tissue Type Adherent Slough -Texture (Pao-wound Skin Appearance) Assessed,Callus -Moisture (Pao-wound Skin Appearance) Assessed,Dry/ Scaly -Color (Pao-wound Skin Appearance) Assessed, Erythema -Temperature (Pao-wound Skin No Abnormality Appearance) (Pt Warm) -Tenderness on Palpation (Pao-wound No Skin Appearance) -Ulcer Cleansing Soap and Water -Foul Odor after Cleansing No -Anesthetic Used 5% Lidocaine Gel 2-right 1st methead -Combined with other wound No -Current Size (cm) - Length 0.5 -Current Size (cm) - Width 0.3 -Current Size (cm) - Depth 0.3 -Total Square Cm 0.15 -Date of Last Picture (Recall this 04/27/22 field) -Photo Taken Yes -Epithelialization None Present -Tunneling No -Undermining/Tunneling Yes -Undermining/Tunneling Starts (O'clock 8 ) -Undermining/Tunneling Ends (O'clock) 1 -Maximum Distance (cm) 0.1 -Circular Undermining No -Exudate Amt Small -Exudate Type Serosanguineous -Wound Margin Distinct, Outline Attached -Granulation Amt Large (67-100%) -Granulation Quality Red -Slough/Fibrin Yes -Necrosis Amt Small (1-33%) -Necrotic Tissue Type Adherent Slough -Texture (Pao-wound Skin Appearance) Assessed,Callus ,Scarring -Moisture (Pao-wound Skin Appearance) Assessed,Dry/ Scaly -Color (Pao-wound Skin Appearance) Assessed -Temperature (Pao-wound Skin No Abnormality Appearance) (Pt Warm) -Tenderness on Palpation (Pao-wound No Skin Appearance) -Ulcer Cleansing Soap and Water -Foul Odor after Cleansing No -Anesthetic Used 5% Lidocaine Gel WC - Nurse 2 - General Ulcer CM Notes Start: 07/13/22 14:14 Freq: Status: Active Protocol: Activity Type Activity Date Activity User E-sign Co-sign Detail Recorded Client Recorded Date Recorded By Document 04/27/22 14:36 MEL [id number] 04/27/22 14:44 MEL 04/27/22 14:36 Wound Center Nurse 2 #4- L PLANTAR -Time 14:38 -Correct Patient Yes -Correct Side, Site, Position Yes -Correct Procedure Yes -Procedure Performed Yes -Type of Procedure Debridement -Clinical Debridement Subcutaneous -Tissue Removed Subcutaneous -Post Debridement (cm) - Length 1.4 -Post Debridement (cm) - Width 1.2 -Post Debridement (cm) - Depth 0.2 -Total Square (Post) (cm) 1.68 -Area of Debridement (cm) - Length 1.4 -Area of Debridement (cm) - Width 1.2 -Total Square (Area) (cm) 1.68 -Tunneling No -Undermining/Tunneling No -Circular Undermining No -Wound/Ulcer Outcome Not Healed -Ulcer Cleansing Rinsed/ Irrigated with Saline -Foul Odor after Cleansing No -Bioengineered Tissue No -Bleeding Controlled with Pressure -Treatment Response Procedure Tolerated Well -Offloading Yes -Type of Offloading Camwalker -Debridement - Subq, 1st 20sq cm Yes 2-right 1st methead -Time 14:40 -Correct Patient Yes -Correct Side, Site, Position Yes -Correct Procedure Yes -Procedure Performed Yes -Type of Procedure Debridement -Clinical Debridement Subcutaneous -Tissue Removed Subcutaneous -Post Debridement (cm) - Length 0.7 -Post Debridement (cm) - Width 0.7 -Post Debridement (cm) - Depth 0.1 -Total Square (Post) (cm) 0.49 -Area of Debridement (cm) - Length 0.7 -Area of Debridement (cm) - Width 0.7 -Total Square (Area) (cm) 0.49 -Tunneling No -Undermining/Tunneling No -Circular Undermining No -Wound/Ulcer Outcome Not Healed -Ulcer Cleansing Rinsed/ Irrigated with Saline -Foul Odor after Cleansing No -Bioengineered Tissue No -Bleeding Controlled with Pressure -Treatment Response Procedure Tolerated Well -Offloading No -Debridement - Subq, 1st 20sq cm Yes Pain Scale: 0-10 Numeric Is Patient Pain Free? Yes WC - Nurse 3 - General Ulcer D/C NN Start: 04/27/22 14:14 Freq: Status: Active Protocol: Activity Type Activity Date Activity User E-sign Co-sign Detail Recorded Client Recorded Date Recorded By Document 04/27/22 14:47 DL [id number] 04/27/22 14:50 DL 04/27/22 14:47 Wound Care Nurse 3 #4- L PLANTAR -Ulcer Cleansing Rinsed/ Irrigated with Saline -Foul Odor after Cleansing No -Primary Dressing Applied Aquacel AG 4x4 -Primary Dressing Covered/Secured with Dry Gauze & Roll Gauze, Secured with Tape -Aquacel AG 4x4 1 2-right 1st methead -Ulcer Cleansing Soap and Water -Foul Odor after Cleansing No -Other Dressing Aquacel AG -Primary Dressing Covered/Secured with Dry Gauze & Roll Gauze, Secured with Tape Treatment Response Procedure Tolerated Well Pain Scale: 0-10 Numeric Is Patient Pain Free? Yes WC - Visit Discharge Discharge Condition Unstable Ambulatory Status Wheelchair Notes: Pt being to ER for altered Mental Status. Caregiver with PT. Facility Type Rn Anesthesiology Care Facility Orders Sent Yes Assessment/Plan Assessment/Plan (1) Chronic ulcer of right foot with fat layer exposed: CODE(S): L97.512 - Non-pressure chronic ulcer of other part of right foot with fat layer exposed (2) Type 2 diabetes mellitus with diabetic polyneuropathy: CODE(S): E11.42 - Type 2 diabetes mellitus with diabetic polyneuropathy (3) Other specified peripheral vascular diseases: CODE(S): I73.89 - Other specified peripheral vascular diseases (4) Claudication: CODE(S): I73.9 - Peripheral vascular disease, unspecified (5) Chronic malnutrition: CODE(S): E46 - Unspecified protein-calorie malnutrition (6) Difficulty in walking, not elsewhere classified: CODE(S): R26.2 - Difficulty in walking, not elsewhere classified (7) Obesity (BMI 30-39.9): CODE(S): E66.9 - Obesity, unspecified (8) Chronic ulcer of left foot with fat layer exposed: CODE(S): L97.522 - Non-pressure chronic ulcer of other part of left foot with fat layer exposed PLAN: Plan I reviewed and discussed his case today. Debridement was performed today as noted in the clinical panel to all of the ulcer sites. The following work up and care recommendations were made: Dressing: Aquacel Ag Wash: Soap and water. To avoid soaking Offload: Heel weight-bear with cam walker boot which was fitted and dispensed this past week and Plastizote liner pocket was further updated to take more pressure off of the ulcer site; left. A total contact cast would be great as long as I can sure he has adequate blood flow for healing. in the meantime I also advised that a cam walker would offload this site even better and a prescription was provided. To use walker. He resides in a assisted facility and should be able to stay off of his foot. A prescription was provided for other limb to offload ulcer site. Cast Vascular: His noninvasive vascular studies were reviewed with some monophasic waveforms of the right lower extremity. Vascular surgery referral was provided. He does not appear to have clinical signs of critical limb ischemia. He is scheduled to see dr. moreira this Monday. There are no gross abnormalities with his updated noninvasive vascular studies completed at [facility] and I do not have access to view the updated arterial Doppler results. Edema: To elevate Infection: It is noted that he has been treated with oral antibiotics for cellulitis per culture results. He is currently on oral doxycycline and Augmentin. To complete this course. To monitor for worsening local signs of infection or development of systemic infection. Pain: Controlled due to his neuropathy status Host factors: His medical comorbidities are noted. His A1c is 6.7%. I recommend nutritional supplementation, Per. He already had an amputation of the left lower extremity and understands he is at risk for further limb loss. Host issues: His multiple medical comorbidities including obesity diabetes and congestive heart failure are noted and this is complicating his healing course. I recommend nutritional supplementation with Per. I also recommend a dietitian referral and this is provided today to optimize weight loss and continue diabetic control and to reduce the risk of further vascular deterioration. This consult has been scheduled. To avoid processed foods. Diagnostic data: Labs reviewed for home 02-28-2022 with GFR 58, albumin 3.0, white blood cell count 8.4, A1c 6.7%, C-reactive protein 29.8, prealbumin 20, sed rate 74. Additional x-ray of the foot from 02-28-2022 noted degenerative changes with no other findings indicating osteomyelitis. The imaging study including the CD were requested. We discussed long-term management and I recommend really focusing on prevention after his ulcers heals and management of medical comorbidities to lower his risk. He asks if an amputation of the great toe is appropriate and I do not recommend this due to his peripheral vascular disease and other comorbidities. I recommend reserving this for if his status deteriorates or if he gets an infection. I answered all the patient's questions. To return to the wound healing center in 1 week or call sooner if the patient has any questions or concerns. 21 minutes was spent on this encounter. This included face to face and non face to face care including preparing for the visit, reviewing the history, performing the exam, counseling and providing education to the patient, family, or caregiver, ordering medications/test/ procedures if indicated as documented, communicating with other healthcare providers, documenting information in the medical record, interpreting / sharing this information when indicated as documented, and care coordination. His outside medical sales representative contacted his assisted to confirm if prompt follow up is possible and therefore plans to go to ER for altered mental status evaluation. Note: [employer] speech recognition superintendent building software was used to create portions of this document. Sound-alike and misspelled words, as well as other superintendent building errors may be contained in the documentation.
[2022-05-04 10:35] VITALS: BP 150/72; PULSE 86; RESP 16; TEMP 35.2; BMI 37.8
--- NOTE | 2022-05-04 13:16 | PCM.WC.PN ---
History of Present Illness Date of Service: 05/04/22 Chief Complaint: Right foot ulcers History of Wound: Ovidio is a pleasant 51-year-old male with significant past medical history of type 2 diabetes mellitus (A1C 6.7%), hypertension, DOMINGO, congestive heart failure, obesity, gout, osteoarthritis, neuropathy, metabolic encephalopathy, former tobacco use, and COVID-19 pneumonia. He recently healed a sacral ulcer and mentioned that he had right foot ulcers. He also has neuropathy with loss of sensation and rest paresthesias consistent with neuropathy status. It is noted he had a prior left transmetatarsal amputation. He denies current fever, chill, nausea, vomiting, odor or redness of the foot. He is scheduled to see vascular surgeon this Monday and had to cancel this. He now has open heart surgery scheduled for June 02 would like to focus on this prior to proceeding with any lower extremity further work-up. He is working with a physical therapist and uses a walker. He feels much better this week and does not have altered mental status today. He usually wears his cam walker on his right foot and has not received a surgical shoe on the left foot yet. He presents wearing his diabetic shoes today because he was in a leung to get here in time. Progress of Wound: Stable bilateral Objective Data Objective Data Vital Signs: Vital Signs Temp Pulse Resp BP O2 Del Method 95.4 F L 86 16 150/72 H Room Air 05/04/22 10:35 05/04/22 10:35 05/04/22 10:35 05/04/22 10:35 05/04/22 10:35 Oxygen Delivery Method Room Air Weight: 133.81 kg Body Mass Index (BMI) 37.8 Physical Exam Const alert and oriented x3 General Appearance: cooperative HEENT normocephalic Extremity Extremity Narrative: No calf tenderness Diminished pulses Muscle wasting noted Compartments are soft to palpate bilateral lower extremities Left transmetatarsal amputation without ulcer Dorsal contraction of lesser toes with prominent metatarsal heads (all) General Extremity: edema and no tenderness to palpation of joints or extremities; Negative for cyanosis Skin Skin Narrative: no purulence, no streaking, no odor, no infection. Skin discontinuity sub first metatarsal head with granular base and peripheral callus bilateral. No deep probing. No streaking, odor, or redness. No bogginess or fluctuance on palpation General Skin Exam: Negative for erythema Neuro Neuro Narrative: lack of normal epicritic sensation via light touch is consistent with neuropathy status Psych cooperative and affect normal Debridement Note Debridement Note Wound debrided: right sub 1st metatarsal head, left sub 1st metatarsal head Wound Grade/Stage: 1, 1 Type of Debridement: Excisional debridement Anesthesia Used: 4% Lidocaine Solution Depth: in the subcutaneous layer Percentage of wound debrided: 100 Instrument Used: #15 blade Tissue Removed: fibrous, devitalized subcutaneous, biofilm, slough Severity: Fat Layer Exposed Amount of bleeding with debridement: Mild Bleeding Controlled with: Pressure Patient tolerated procedure: Patient tolerated procedure well Post-Debridement Measurements and Additional Note: Post-Debridement Measurements/Treatment - Nurse 1 - General Ulcer Assessment Start: 04/27/22 14:14 Freq: Status: Active Protocol: CHRISSY Activity Type Activity Date Activity User E-sign Co-sign Detail Recorded Client Recorded Date Recorded By Document 04/27/22 14:14 [facility] [id number] 04/27/22 14:29 [facility] Document 05/04/22 10:35 [facility] [id number] 05/04/22 10:47 [facility] 04/27/22 05/04/22 14:14 10:35 - Today's Visit Information Type of service Follow-up Visit Follow-up Visit (Physician/HAM PASSER (Physician/HAM PASSER ) ) Arrival Mode Wheelchair Ambulatory, Walker Transfer Assistance Other None Transfer Assist (Other) 2 STAND BY; PT CONFUSED Accompanied by CAREGIVER FROM F Patient Identification Verified (Name & Yes Yes ) Patient Requires Transmission-Based No No Precautions Finger Stick Blood Sugar(mg/dl) (if 130 95 indicated): Blood Sugar Stated by Stated by Patient Patient Height and Weight Body Mass Index (BMI) 37.8 37.8 BMI Classification Obese Obese Vital Signs Temperature (97.8 F-99.1 F) 96.8 F L 95.4 F L Temperature Source Temporal Temporal Pulse Rate (60-100) 88 86 Pulse Location Monitor Monitor Respiratory Rate (12-18) 16 16 Respiratory rate source Observation Observation Oxygen Delivery Method Room Air Room Air Blood Pressure (90/60-120/80) 177/92 H 150/72 H Blood Pressure Mean (mm Hg) 120 98 Source Monitor Monitor Position Sitting Sitting Blood Pressure Location Left Forearm Left Arm History Since Last Visit- (Skip if this is Patient's initial visit) Have you changed medications since your No last visit? Any new allergies or adverse reactions No Had a fall/change in ADL's that may No increase risk of falls Signs or symptoms of abuse and/or No neglect since last visit Have you been in the hospital since your Yes last visit? Has dressing in place as prescribed Yes Has compression in place as prescribed N/A Has offloadiing in place as prescribed No Experienced any changes in pain level or No management Left Footwear Diabetic Shoe Right Footwear Diabetic Shoe Pain Scale: 0-10 Numeric Is Patient Pain Free? Yes Yes WC - Nurse 1 - General Ulcer Measurement Start: 04/27/22 14:14 Freq: Status: Active Protocol: Activity Type Activity Date Activity User E-sign Co-sign Detail Recorded Client Recorded Date Recorded By Document 04/27/22 14:14 [facility] [id number] 04/27/22 14:29 [facility] Document 05/04/22 10:35 [facility] [id number] 05/04/22 10:47 [facility] 04/27/22 05/04/22 14:14 10:35 Wound Center Nurse 1 #4- L PLANTAR -Combined with other wound No No -Current Size (cm) - Length 0.1 0.6 -Current Size (cm) - Width 0.1 0.8 -Current Size (cm) - Depth 0.1 0.2 -Total Square Cm 0.01 0.48 -Date of Last Picture (Recall this 04/27/22 05/04/22 field) -Photo Taken Yes Yes -Epithelialization None Present None Present -Tunneling No No -Undermining/Tunneling No No -Circular Undermining No No -Exudate Amt Small Small -Exudate Type Serous Sanguineous -Wound Margin Distinct, Distinct, Outline Outline Attached Attached -Granulation Amt None Present (0 Large (67-100%) %) -Granulation Quality Red -Slough/Fibrin Yes Yes -Necrosis Amt Large (67-100%) Small (1-33%) -Necrotic Tissue Type Adherent Slough Adherent Slough -Texture (Pao-wound Skin Appearance) Assessed,Callus Assessed,Callus ,Scarring -Moisture (Pao-wound Skin Appearance) Assessed,Dry/ Assessed,Dry/ Scaly Scaly -Color (Pao-wound Skin Appearance) Assessed, Assessed Erythema -Temperature (Pao-wound Skin No Abnormality No Abnormality Appearance) (Pt Warm) (Pt Warm) -Tenderness on Palpation (Pao-wound No No Skin Appearance) -Ulcer Cleansing Soap and Water Rinsed/ Irrigated with Saline -Foul Odor after Cleansing No No -Anesthetic Used 5% Lidocaine 5% Lidocaine Gel Gel 2-right 1st methead -Combined with other wound No No -Current Size (cm) - Length 0.5 0.3 -Current Size (cm) - Width 0.3 0.3 -Current Size (cm) - Depth 0.3 0.2 -Total Square Cm 0.15 0.09 -Date of Last Picture (Recall this 04/27/22 05/04/22 field) -Photo Taken Yes Yes -Epithelialization None Present Small 1-33% -Tunneling No No -Undermining/Tunneling Yes No -Undermining/Tunneling Starts (O'clock 8 ) -Undermining/Tunneling Ends (O'clock) 1 -Maximum Distance (cm) 0.1 -Circular Undermining No No -Exudate Amt Small Small -Exudate Type Serosanguineous Sanguineous -Wound Margin Distinct, Distinct, Outline Outline Attached Attached -Granulation Amt Large (67-100%) Large (67-100%) -Granulation Quality Red Red -Slough/Fibrin Yes Yes -Necrosis Amt Small (1-33%) Small (1-33%) -Necrotic Tissue Type Adherent Slough Adherent Slough -Texture (Pao-wound Skin Appearance) Assessed,Callus Assessed,Callus ,Scarring ,Scarring -Moisture (Pao-wound Skin Appearance) Assessed,Dry/ Assessed,Dry/ Scaly Scaly -Color (Pao-wound Skin Appearance) Assessed Assessed -Temperature (Pao-wound Skin No Abnormality No Abnormality Appearance) (Pt Warm) (Pt Warm) -Tenderness on Palpation (Pao-wound No No Skin Appearance) -Ulcer Cleansing Soap and Water Rinsed/ Irrigated with Saline -Foul Odor after Cleansing No No -Anesthetic Used 5% Lidocaine 5% Lidocaine Gel Gel WC - Nurse 2 - General Ulcer CM Notes Start: 04/27/22 14:14 Freq: Status: Active Protocol: Activity Type Activity Date Activity User E-sign Co-sign Detail Recorded Client Recorded Date Recorded By Document 04/27/22 14:36 [id number] 04/27/22 14:44 JF Edit Result 04/27/22 14:36 JF (1) [id number] 04/28/22 07:27 PL Document 05/04/22 11:06 PL [id number] 05/04/22 11:10 PL (1) 2-right 1st methead - Debridement - Subq, 1st 20sq cm Yes => No 04/27/22 05/04/22 14:36 11:06 Wound Center Nurse 2 #4- L PLANTAR -Time 14:38 10:54 -Correct Patient Yes Yes -Correct Side, Site, Position Yes Yes -Correct Procedure Yes Yes -Procedure Performed Yes Yes -Type of Procedure Debridement Debridement -Clinical Debridement Subcutaneous Subcutaneous -Tissue Removed Subcutaneous Subcutaneous -Post Debridement (cm) - Length 1.4 0.6 -Post Debridement (cm) - Width 1.2 0.8 -Post Debridement (cm) - Depth 0.2 0.2 -Total Square (Post) (cm) 1.68 0.48 -Area of Debridement (cm) - Length 1.4 0.6 -Area of Debridement (cm) - Width 1.2 0.8 -Total Square (Area) (cm) 1.68 0.48 -Tunneling No No -Undermining/Tunneling No No -Circular Undermining No No -Wound/Ulcer Outcome Not Healed Not Healed -Ulcer Cleansing Rinsed/ Rinsed/ Irrigated with Irrigated with Saline Saline -Foul Odor after Cleansing No No -Bioengineered Tissue No No -Bleeding Controlled with Pressure Pressure -Treatment Response Procedure Procedure Tolerated Well Tolerated Well -Offloading Yes -Type of Offloading Camwalker -Debridement - Subq, 1st 20sq cm Yes Yes 2-right 1st methead -Time 14:40 10:54 -Correct Patient Yes Yes -Correct Side, Site, Position Yes Yes -Correct Procedure Yes Yes -Procedure Performed Yes Yes -Type of Procedure Debridement Debridement -Clinical Debridement Subcutaneous Subcutaneous -Tissue Removed Subcutaneous Subcutaneous -Post Debridement (cm) - Length 0.7 0.3 -Post Debridement (cm) - Width 0.7 0.3 -Post Debridement (cm) - Depth 0.1 0.2 -Total Square (Post) (cm) 0.49 0.09 -Area of Debridement (cm) - Length 0.7 0.3 -Area of Debridement (cm) - Width 0.7 0.3 -Total Square (Area) (cm) 0.49 0.09 -Tunneling No No -Undermining/Tunneling No No -Circular Undermining No No -Wound/Ulcer Outcome Not Healed Not Healed -Ulcer Cleansing Rinsed/ Rinsed/ Irrigated with Irrigated with Saline Saline -Foul Odor after Cleansing No No -Bioengineered Tissue No No -Bleeding Controlled with Pressure Pressure -Treatment Response Procedure Procedure Tolerated Well Tolerated Well -Offloading No -Debridement - Subq, 1st 20sq cm No Yes Pain Scale: 0-10 Numeric Is Patient Pain Free? Yes Yes - Nurse 3 - General Ulcer D/C NN Start: 04/27/22 14:14 Freq: Status: Active Protocol: Activity Type Activity Date Activity User E-sign Co-sign Detail Recorded Client Recorded Date Recorded By Document 04/27/22 14:47 DL [id number] 04/27/22 14:50 DL Document 05/04/22 11:13 [facility] [id number] 05/04/22 11:15 [facility] 04/27/22 05/04/22 14:47 11:13 Wound Care Nurse 3 #4- L PLANTAR -Ulcer Cleansing Rinsed/ Rinsed/ Irrigated with Irrigated with Saline Saline -Foul Odor after Cleansing No No -Primary Dressing Applied Aquacel AG 4x4 Aquacel AG 4x4 -Primary Dressing Covered/Secured with Dry Gauze & Dry Gauze & Roll Gauze, Roll Gauze, Secured with Secured with Tape Tape -Other Covering ABD -Aquacel AG 4x4 1 1 2-right 1st methead -Ulcer Cleansing Soap and Water Rinsed/ Irrigated with Saline -Foul Odor after Cleansing No No -Primary Dressing Applied Aquacel AG 4x4 -Other Dressing Aquacel AG -Primary Dressing Covered/Secured with Dry Gauze & Dry Gauze & Roll Gauze, Roll Gauze, Secured with Secured with Tape Tape -Other Covering ABD -Aquacel AG 4x4 0 Treatment Response Procedure Procedure Tolerated Well Tolerated Well Pain Scale: 0-10 Numeric Is Patient Pain Free? Yes Yes WC - Visit Discharge Discharge Condition Unstable Stable Ambulatory Status Wheelchair Ambulatory, Walker Transportation [facility] Notes: Pt being to ER for altered Mental Status. Caregiver with PT. Facility [facility] Facility Orders Sent Yes Assessment/Plan Assessment/Plan (1) Chronic ulcer of right foot with fat layer exposed: CODE(S): L97.512 - Non-pressure chronic ulcer of other part of right foot with fat layer exposed (2) Type 2 diabetes mellitus with diabetic polyneuropathy: CODE(S): E11.42 - Type 2 diabetes mellitus with diabetic polyneuropathy (3) Other specified peripheral vascular diseases: CODE(S): I73.89 - Other specified peripheral vascular diseases (4) Claudication: CODE(S): I73.9 - Peripheral vascular disease, unspecified (5) Chronic malnutrition: CODE(S): E46 - Unspecified protein-calorie malnutrition (6) Difficulty in walking, not elsewhere classified: CODE(S): R26.2 - Difficulty in walking, not elsewhere classified (7) Obesity (BMI 30-39.9): CODE(S): E66.9 - Obesity, unspecified (8) Chronic ulcer of left foot with fat layer exposed: CODE(S): L97.522 - Non-pressure chronic ulcer of other part of left foot with fat layer exposed PLAN: Plan I reviewed and discussed his case today. Debridement was performed today as noted in the clinical panel to all of the ulcer sites. The following work up and care recommendations were made: Dressing: Aquacel Ag Wash: Soap and water. To avoid soaking Offload: Heel weight-bear with cam walker boot which was fitted and dispensed this past week and Plastizote liner pocket was further updated to take more pressure off of the ulcer site; left. A total contact cast would be great as long as I can sure he has adequate blood flow for healing. In the meantime I also advised that a cam walker would offload this site even better. To use walker. He resides in a residential facility and should be able to stay off of his foot. A prescription was provided for other limb to offload ulcer site. Vascular: His noninvasive vascular studies were reviewed with some monophasic waveforms of the right lower extremity. Vascular surgery referral was provided. He does not appear to have clinical signs of critical limb ischemia. He is scheduled to see dr. moreira this Monday. There are no gross abnormalities with his updated noninvasive vascular studies completed at [facility] and I do not have access to view the updated arterial Doppler results. The patient has now put this on hold so we can focus on his cardiac bypass surgery. Edema: To elevate. Okay to use Tubigrip as well. Infection: It is noted that he has been treated with oral antibiotics for cellulitis per culture results. He is currently on oral doxycycline and Augmentin. To complete this course. To monitor for worsening local signs of infection or development of systemic infection. Pain: Controlled due to his neuropathy status Host factors: His medical comorbidities are noted. His A1c is 6.7%. I recommend nutritional supplementation, Per. He already had an amputation of the left lower extremity and understands he is at risk for further limb loss. Host issues: His multiple medical comorbidities including obesity diabetes and congestive heart failure are noted and this is complicating his healing course. I recommend nutritional supplementation with Per. I also recommend a dietitian referral and this is provided today to optimize weight loss and continue diabetic control and to reduce the risk of further vascular deterioration. This consult has been scheduled. To avoid processed foods. Diagnostic data: Labs reviewed for home 02-28-2022 with GFR 58, albumin 3.0, white blood cell count 8.4, A1c 6.7%, C-reactive protein 29.8, prealbumin 20, sed rate 74. Additional x-ray of the foot from 02-28-2022 noted degenerative changes with no other findings indicating osteomyelitis. The imaging study including the CD were requested. We discussed long-term management and I recommend really focusing on prevention after his ulcers heals and management of medical comorbidities to lower his risk. He asks if an amputation of the great toe is appropriate and I do not recommend this due to his peripheral vascular disease and other comorbidities. I recommend reserving this for if his status deteriorates or if he gets an infection. I answered all the patient's questions. To return to the wound healing center in 1 week or call sooner if the patient has any questions or concerns. Note: [employer] speech recognition supervisor continuous weld pipe mill software was used to create portions of this document. Sound-alike and misspelled words, as well as other supervisor continuous weld pipe mill errors may be contained in the documentation.
== END 2022-05-15 23:59 | disposition home or self-care (01) ==
LOC: WC 11:15
PROVIDERS: Referring Provider Podiatrist; Visit Provider Podiatrist
DX: E11.621 Type 2 diabetes mellitus with foot ulcer (principal); E11.51 Type 2 diabetes mellitus with diabetic peripheral angiopathy without gangrene; L97.512 Non-pressure chronic ulcer of other part of right foot with fat layer exposed; L97.522 Non-pressure chronic ulcer of other part of left foot with fat layer exposed; E46 Unspecified protein-calorie malnutrition; I11.0 Hypertensive heart disease with heart failure; I50.9 Heart failure, unspecified; E11.42 Type 2 diabetes mellitus with diabetic polyneuropathy; R26.2 Difficulty in walking, not elsewhere classified; Z86.16 Personal history of COVID-19; E66.9 Obesity, unspecified; Z68.37 Body mass index [BMI] 37.0-37.9, adult
CPT/HCPCS: 11042